=== PATIENT | female | born 1975 | race Caucasian/White ===

== ENCOUNTER 2023-08-20 07:56 | Emergency (ER) | payer OTHER ==
--- OUTSIDE RECORDS SUMMARY | 2023-08-20 08:06 | XMS REPORT | Continuity of Care Document ---
Author Name Unknown Address [address] [facility] [address] [place] [address] [facility] Address [address] [facility] [address] [place] [address] Care Team Providers Care Environmental Safety Specialist Name Role Phone SUN SALCIDO APN Primary Care Physician ZIA Cornelius Attending Clinician Unavailable BLANE TERRELL Attending Clinician Unavail able COSME GUILLEN Attending Clinician Unavailable BLANE FU Attending Clinician Unavailable Blane Fu Attending Clinician UnavailSERGIO Olivo Attending Clinician Sergio Cano Attending Clinician + [phone] KOKI_Jesus Manuel_Francheska Attending Clinician UnavailLisha Ledbetter MD Attending Clinician [phone] LISHA RITTER Attending Clinician UnavailLEOPOLDO Holcomb Attending Clinician Unavailable LEOPOLDO FRASER Attending Clinician Unavailable Doctor Unassigned, Register Attending Clinician U jujuailable ROSELINE MCMAHON Attending Clinician Unavailab Melissa Mckenzie LVN Attending Clinician + [phone] Louie MARKETING OPERATIONS SPECIALISTFreda Simon Attending Clinician [phone] Unknown, Attending Attending Clinician Unavailab FREDA Geiger Attending Clinician Unavailable Treasure Lugo MD Attending Clinician Fab Vergara MD Attending Clinician [phone] Lazaro HENRY, Jacquie West Attending Clinician [phone] LARRY ZAMORA Attending Clinician Unavailable Larry Zamora MD Attending Clinician [phone] HEATHER RANDALL Attending Clinician Unavailable Yomaira RENEE Attending Clinician Unavailable Víctor PAC, Yomaira Fuentes Attending Clinician [phone] Paty JOINER, Erin Jimenez Attending Clinician Unavail able TREASURE LUGO Attending Clinician Alicja vailable SELF, ZACHARIAH S Attending Clinician Unavailable Self PAC, Zachariah S Attending Clinician [phone] ZHENG AVENDANO Attending Clinician Unavailab ASHIA Barkley Attending Clinician Unavailab benji HOOPER_RONEY Attending Clinician Unavailabl HANS Casiano Attending Clinician Unavailabl ZIA Damon Attending Clinician Unavail able Only, Ang Db Test Attending Clinician UnavailNuris Patel MD Attending Clinician [phone] NURIS CRAWFORD Attending Clinician Unavailable SERGIO FISHER Admitting Clinician Unarachel Serrano Admitting Clinician Unavaila ROSELINE Medina Admitting Clinician Unavailab LISHA Schaefer Admitting Clinician UnavailHEATHER Rebolledo Admitting Clinician Unavailable Yomaira RENEE Admitting Clinician Unavailable LEOPOLDO FRASER Admitting Clinician Unavailable Treasure Lugo MD Admitting Clinician TREASURE LUGO Admitting Clinician Alicja ZIA Toribio Admitting Clinician Unavail able COSME GUILLEN Admitting Clinician Unavailable DARRIN Admitting Clinician Unavailabl e Payers Payer Name Policy Type Policy Number Effective Date Expirati on Date Source [employer] [id number] 2018 00:00:00 [employer] (PPO) [id number] 2022 00:00:00 [employer] [id number] 2022 00:00:00 Problems Condition Name Condition Details Condition Category Status Onset Date Resolution Date Last Treatment Date Treating Clinician Comments Source Rupture of rotator cuff of right shoulder Rupture of Rotator Cuff of Right Shoulder Problem Active 08-06 00:00: 00 [facility] Pain of right shoulder joint Pain of Right Shoulder Joint Problem Active 08-06 00:00: 00 [facility] Wound infection Wound infection Disease Active 2022-05 2- 00:00: 00 [facility] Cellulitis of calf Cellulitis of calf Disease Active 2022-05 2 00:00: 00 [facility] Other iron deficiency anemias Other iron deficiency anemias Disease Active 2022-05 0-03 00:00: 00 [facility] Obesity (BMI 30-39.9) Obesity (BMI 30-39.9) Disease Active 11-22 00:00: 00 [facility] Critical limb ischemia of left lower extremity with bypass graft Critical limb ischemia of left lower extremity with bypass graft Disease Active 11-21 00:00: 00 [facility] Critical limb ischemia with history of revascular ization of same extremity Critical limb ischemia with history of revascular ization of same extremity Disease Active 11-21 00:00: 00 [facility] Tobacco abuse Tobacco abuse Disease Active 10-13 00:00: 00 [facility] Essential hypertensi on, benign Essential hypertensi on, benign Disease Active 10-13 00:00: 00 [facility] Problem Condition [facility] Allergies, Adverse Reactions, Alerts Allergy Name Allergy Type Status Severity Reaction(s) Onset Date Inactive Date Treating Clinician Comments Source AMLODIPI NE DRUG INGREDI Active Other-Cmnt 07-05 00:00: 00 [facility] Amlodipi ne Drug Allergy Active Other - See comments 07-05 00:00: 00 [facility] No Known Drug Allergie s DA Active U 6- 00:00: 00 [facility] No Known Drug Allergie s DA Active U 5- 00:00: 00 [facility] No Known Drug Allergie s DA Active U -05 00:00: 00 [facility] No Known Drug Allergie s DA Active U 08-11 00:00: 00 [facility] NO KNOWN ALLERGIE S Drug Class Active [facility] Social History Social Habit Start Date Stop Date Quantity Comments Source History of tobacco use Smokes tobacco daily [facility] Gender identity [facility] Sexual orientation [facility] Tobacco Comment 2023-04-17 00:00:00 2023-04-17 00:00:00 5-6 a day [facility] Tobacco use and exposure 2023-04-17 00:00:00 2023-04-17 00:00:00 User of smokeless tobacco [facility] History of Social function 2022-12-04 00:00:00 2022-12-04 00:00:00 [facility] Exposure to SARS-CoV-2 (event) 2021-11-08 00:00:00 2021-11-18 14:43:00 Not sure [facility] Sex Assigned At 1975 00:00:00 1975 00:00:00 [facility] Smoking Status Start Date Stop Date Source Former Smoker [facility] Smokes tobacco daily 2023-04-17 00:00:00 [facility] Medications Ordered Medication Name Filled Medication Name Start Date Stop Date Current Medication? Ordering Clinician Indication Dosage Frequency Signature (SIG) Comments Components Source ondansetron (ZOFRAN (PF)) injection 4 mg 2024-0 1-06 18:30: 00 05-19 18:27 :00 No 4mg 4 mg, Slow IV Push, ONCE, 1 dose, On 05/19/23 at 1230, [facility] NaCl 0.9% (NS) bolus infusion 1,000 mL 05-19 18:00: 00 05-19 19:06 :00 No 1000mL at 999 mL/hr, 1,000 mL, IV Infusion, ONCE, 1 dose, On 05/19/23 at 1200, [facility] KCL (KLOR-CON M20) tablet 40 mEq 05-19 16:30: 00 05-19 17:04 :00 No 40meq 40 mEq, Oral, ONCE, 1 dose, On 05/19/23 at 1030, [facility] NaCl 0.9% (NS) bolus infusion 1,000 mL 05-19 16:15: 00 05-19 17:55 :00 No 1000mL at 999 mL/hr, 1,000 mL, IV Infusion, ONCE, 1 dose, On 05/19/23 at 1015, [facility] Pantoprazol e 40 mg delayed-rel ease suspension 2022-05 14:30: 18 04-24 00:00 :00 No 40mg Take 40 mg by mouth in the morning. [facility] metoprolol tartrate 25 mg tablet 2022-05 14:30: 04-24 00:00 :00 No 25mg Take 1 tablet by mouth in the morning and 1 tablet in the evening. [facility] metoprolol tartrate 25 mg tablet 2022-05 00:00: 00 Yes 25mg Take 1 tablet by mouth in the morning and 1 tablet in the evening. [facility] Pantoprazol e 40 mg delayed-rel ease suspension 2022-05 00:00: 00 05-10 00:00 :00 No 40mg Take 40 mg by mouth in the morning. [facility] apixaban (ELIQUIS) tablet 5 mg 2022-05 14:00: 00 Yes 5mg 5 mg, Oral, BID, First dose on 04/21/23 at 0800, Until Discontinu ed, Routine
Indicatio ns: DVT/PE [facility] ferrous gluconate tablet 324 mg 2022-05 15:00: 00 Yes 324mg 324 mg, Oral, QMON// SUN, First dose on Sun04/20/23 at 0900, Until Discontinu ed, Routine [facility] acetaminoph en (TYLENOL) tablet 1,000 mg 2022-05 04:00: 00 Yes 1000mg 1,000 mg, Oral, Q8H, First dose on [place] 04/19/23 at 2200, Until Discontinu ed, Routine [facility] Lidocaine (LIDOCARE) 4 % patch 1 Patch 2022-05 22:30: 00 04-22 02:30 :00 No 1{patch } 1 Patch, Topical, Administer over 12 Hours, DAILY, 3 doses, First dose on [place] 04/19/23 at 1630, Last dose on 04/21/23 at 0900, Routine [facility] lactated ringers IV infusion 1,000 mL 2022-05 15:45: 00 04-19 22:19 :10 No 1000mL at 75 mL/hr, 1,000 mL, IV Infusion, CONTINUOUS , Starting on [place] 04/19/23 at 0945, Until [place] 04/19/23 at 1619, Routine, PACU [facility] sennosides (SENOKOT) tablet 8.6 mg 2022-05 15:00: 00 Yes 8.6mg 8.6 mg, Oral, DAILY, First dose on [place] 04/19/23 at 0900, Until Discontinu ed, Routine [facility] docusate (COLACE) capsule 100 mg 2022-05 15:00: 00 Yes 100mg 100 mg, Oral, DAILY, First dose on [place] 04/19/23 at 0900, Until Discontinu ed, Routine [facility] methocarbam oL (ROBAXIN) injection 1,000 mg 2022-05 04:00: 00 04-21 17:26 :28 No 1000mg 1,000 mg, Intravenou s, Q8H, 9 doses, First dose (after last modificati on) on Sun04/18/23 at 2200, Last dose on Sun04/21/23 at 1400, Routine [facility] acetaminoph en ADULT (OFIRMEV) injection 1,000 mg 2022-05 04:00: 00 04-19 22:19 :01 No 1000mg 1,000 mg, IV Infusion, at 400 mL/hr Administer over 15 Minutes, Q8H, 3 doses, First dose on Sun04/18/23 at 2200, Last dose on Sun04/19/23 at 1400, Routine
Indicatio n: Strict NPO and unable to tolerate oral medication s [facility] ketorolac (TORADOL) injection 15 mg 2022-05 00:00: 00 04-21 17:42 :00 No 15mg 15 mg, Slow IV Push, Q8HA1, 9 doses, First dose (after last modificati on) on Sun04/18/23 at 1800, Last dose on Sun04/21/23 at 1000, Routine [facility] naloxone (NARCAN) injection 0.4 mg 2022-05 22:42: 39 Yes .4mg 0.4 mg, Slow IV Push, PRN, Starting on Sun04/18/23 at 1642, Until Discontinu ed, Routine, Sedation/R espiratory Depression [facility] FENTanyl (SUBLIMAZE) 50 mcg/mL Load & Rescue dose 2022-05 22:42: 39 Yes Slow IV Push, Routine [facility] morpHINE (2 mg/mL) injection 2 mg 2022-05 19:43: 59 04-18 19:53 :00 No 2mg 2 mg, Slow IV Push, Q5MIN PRN, 2 doses, Starting on Sun04/18/23 at 1343, Until Sun04/18/23 at 1353, Routine, breakthrou gh pain [facility] citalopram (CELEXA) tablet 10 mg 2022-05 15:00: 00 Yes 10mg 10 mg, Oral, DAILY, First dose on Sun04/18/23 at 0900, Until Discontinu ed, Routine [facility] polyethylen e glycol 3350 powder 17 g 2022-05 15:00: 00 Yes 17g 17 g, Oral, QAM, First dose on Sun04/18/23 at 0900, Until Discontinu ed, Routine [facility] ceFEPIme (MAXIPIME) 1,000 mg in NaCl 0.9% (NS) 100 mL MINI-BAG 2022-05 09:45: 00 04-20 13:19 :11 No 1000mg 1,000 mg, IV Piggyback, Q8H ABX, 42 doses, First dose on Sun04/18/23 at 0700, Last dose on Sun05/01/23 at 1945, Administer over 4 Hours, 100 mL
Reas on for Anti-Infec tive: Documented Infection< br>Documen kristy Infection Site: Skin / Soft Tissue
Duration of Therapy: 7 days [facility] diphenhydrA MINE (BENADRYL) tablet 25 mg 2022-05 04:39: 53 Yes 25mg 25 mg, Oral, Q4HPRN, Starting on Sun04/17/23 at 2239, Until Discontinu ed, Routine, Itching, Mild Rash [facility] vancomycin (VANCOCIN) 1,500 mg in NaCl 0.9% (NS) 500 mL VIAL-MATE IV piggyback 2022-05 02:15: 00 04-18 06:38 :00 No 15mg/kg 1,500 mg (rounded from 1,429.5 mg = 15 mg/kg ?95.3 kg), IV Piggyback, ONCE, 1 dose, On Sun04/17/23 at 2015, Administer over 90 Minutes, 500 mL
Reas on for Anti-Infec tive: Documented Infection& lt;br>Docu mented Infection Site: Skin / Soft Tissue
Duration of Therapy: 7 days [facility] varenicline (CHANTIX) tablet 1 mg 2022-05 02:00: 00 Yes 1mg 1 mg, Oral, BID, First dose on Sun04/17/23 at 2330, Until Discontinu ed, Routine [facility] ceFEPIme (MAXIPIME) 2,000 mg in NaCl 0.9% (NS) 100 mL MINI-BAG 2022-05 02:00: 00 04-18 06:10 :00 No 2000mg 2,000 mg, IV Piggyback, ONCE, 1 dose, On Sun04/17/23 at 1999, Administer over 30 Minutes, 100 mL
Reas on for Anti-Infec tive: Documented Infection< br>Documen kristy Infection Site: Skin / Soft Tissue
Duration of Therapy: 7 days [facility] metoprolol tartrate (LOPRESSOR) tablet 25 mg 2022-05 02:00: 00 04-18 21:13 :16 No 25mg 25 mg, Oral, BID, First dose on Sun04/17/23 at 2000, Until Discontinu ed, Routine [facility] vancomycin (VANCOCIN) 1,500 mg in NaCl 0.9% (NS) 500 mL VIAL-MATE IV piggyback 2022-05 01:15: 00 04-20 15:57 :27 No 15mg/kg 1,500 mg (rounded from 1,429.5 mg = 15 mg/kg ?95.3 kg), IV Piggyback, Q12H ABX, 28 doses, First dose on Sun04/17/23 at 1915, Last dose on Sun05/01/23 at 0715, Administer over 90 Minutes, 500 mL
Reas on for Anti-Infec tive: Documented Infection< br>Documen kristy Infection Site: Skin / Soft Tissue
Duration of Therapy: 7 days [facility] HEPARIN SODIUM (PORCINE) 1,000 UNIT/ML BOLUS ACS ORDER SET 2022-05 01:15: 00 04-18 03:43 :00 No 4000U 4,000 Units, IV Push, ONCE, 1 dose, On Sun04/17/23 at 1915, ADAM [facility] heparin 25,000 Units/250 mL (Premixed Bag) in 0.45 % NS 2022-05 01:08: 22 04-21 13:49 :32 No 0U/h 0-2,750 Units/hr (0-27.5 mL/hr), IV Infusion, TITRATE, Parameters in Admin. Instr., Starting on Sun04/17/23 at 1908
In itiate dosing:&nb sp; & nbsp;&nbsp ; -Patient 83 kg or under: 1,000 Units/hr (Calculate d dose at 12 units/kg/h r) &n bsp; &nbs p; -Patient over 83 k,000 units/hr&n bsp;DO NOT Exceed the MAXIMUM 1,000 units/hr for initiation of heparin drip.&nbsp ; CAU TION - If LMWH given in ER, AVOID bolus and start next dose/drip 12 hrs after ER dosage.&nb sp; M ust program rate using programmab le infusion pump.&nbsp ; Evelia ck with the ordering provider first prior to any administra tion should the patient be on existing/a dditional anticoagul ant therapy. Rang e, Dosing and Testing: &nbs p;FOR [facility], [facility], AND [facility] ONLY &nbs p; - aPTT < 35: & nbsp;Bolus 5000 units, increase rate 300 units/hr&n bsp; - aPTT 35-44:&nbs p; Jason conner 3000 units, increase rate 200 units/hr&n bsp; - aPTT 45-54:&nbs p; In crease rate 100 units/hr&n bsp; - aPTT 55-85:&nbs p; NO CHANGE&nbs p; - aPTT 86-95:&nbs p; De crease rate 100 units/hr&n bsp; - aPTT 96-120:&nb sp; H old 30 minutes, decrease rate 150 units/hr&n bsp; - aPTT > 120: Hold 60 minutes, decrease rate 200 units/hr&n bsp; Check aPTT 6 hours after initiation , then Q6H after every change, aPTT Q12H once therapeuti c levels are reached.&n bsp; &nbs p; __ &n bsp;FOR [facility] ONLY - aPTT < 40: & nbsp;Bolus 5000 units, increase rate 300 units/hr&n bsp; - aPTT 40-49:&nbs p; Jason conner 3000 units, increase rate 200 units/hr&n bsp; - aPTT 50-59:&nbs p; In crease rate 100 units/hr&n bsp; - aPTT 60-85:&nbs p; NO CHANGE&nbs p; - aPTT 86-95:&nbs p; De crease rate 100 units/hr&n bsp; - aPTT 96-120:&nb sp; H old 30 minutes, decrease rate 150 units/hr&n bsp; - aPTT > 120: Hold 60 minutes, decrease rate 200 units/hr&n bsp; Check aPTT 6 hours after initiation , then Q6H after every change, aPTT Q12H once therapeuti c levels are reached.&n bsp;&n bsp; DO NOT ADJUST INITIAL BOLUS OR INITIAL INFUSION RATE.
[facility] (1,000 unit/mL, 10 mL vial) for Rebolusing 2022-05 01:08: 18 04-21 13:49 :32 No 3000U FOR REBOLUSING , Starting on Sun04/17/23 at 1908, Until 04/21/23 at 0749, Routine
Dosing based on aPPT testing parameters (refer to continuous heparin drip order).
[facility] FENTanyl PF (SUBLIMAZE (PF)) injection 25 mcg 2022-05 01:07: 24 04-18 22:07 :44 No 25ug 25 mcg, Slow IV Push, Q2HPRN, Starting on Sun04/17/23 at 1907, Until 04/18/23 at 1607, Routine, Pain (scale 7-10) [facility] ondansetron (ZOFRAN (PF)) injection 4 mg 2022-05 01:07: 08 Yes 4mg 4 mg, Slow IV Push, Q6HPRN, Starting on Sun04/17/23 at 1907, Until Discontinu ed, Routine, Nausea and Vomiting (N/V) [facility] zolpidem (AMBIEN) tablet 5 mg 2022-05 00:52: 50 Yes 5mg 5 mg, Oral, QHSPRN, Starting on Sun04/17/23 at 1852, Until Discontinu ed, Insomnia [facility] Pantoprazol e 40 mg delayed-rel ease suspension 2022-05 19:10: 31 Yes 40mg Take 40 mg by mouth in the morning. [facility] metoprolol tartrate 25 mg tablet 2022-05 19:10: 31 Yes 25mg Take 1 tablet by mouth in the morning and 1 tablet in the evening. [facility] Pantoprazol e 40 mg delayed-rel ease suspension 2022-05 12:07: 27 Yes 40mg Take 40 mg by mouth in the morning. [facility] metoprolol tartrate 25 mg tablet 2022-05 12:07: 27 Yes 25mg Take 1 tablet by mouth in the morning and 1 tablet in the evening. [facility] acetaminoph en (TYLENOL) tablet 325 mg 2022-05 02:00: 00 Yes 325mg 325 mg, Oral, TID, First dose (after last modificati on) on Sun04/06/23 at 2000, Until Discontinu ed, Routine [facility] apixaban (ELIQUIS) tablet 5 mg 2022-05 02:00: 00 Yes 5mg 5 mg, Oral, BID, First dose on Sun04/05/23 at 2000, Until Discontinu ed, Routine
Indicatio ns: Non-Valvul ar Atrial Fibrillati on [facility] magnesium sulfate in water 2 gram/50 mL (4 %) infusion 2 g 2022-05 15:00: 00 04-05 15:37 :00 No 2g 2 g, IV Piggyback, Administer over 60 Minutes, ONCE, 1 dose, On Sun04/05/23 at 0900, Routine [facility] KCL (KLOR-CON M20) tablet 20 mEq 2022-05 15:00: 00 04-05 14:37 :00 No 20meq 20 mEq, Oral, ONCE, 1 dose, On Sun04/05/23 at 0900, Routine [facility] methocarbam oL (ROBAXIN) injection 1,000 mg 2022-05 10:30: 00 04-05 10:24 :00 No 1000mg 1,000 mg, Intravenou s, ONCE, 1 dose, On Sun04/05/23 at 0430, Routine [facility] acetaminoph en (TYLENOL) tablet 500 mg 2022-05 20:00: 00 04-06 20:18 :11 No 500mg 500 mg, Oral, TID, First dose (after last modificati on) on Sun04/04/23 at 1400, Until Discontinu ed, Routine [facility] morpHINE (2 mg/mL) injection 2 mg 2022-05 19:30: 00 04-04 19:34 :00 No 2mg 2 mg, Slow IV Push, ONCE, 1 dose, On Sun04/04/23 at 1345, Routine [facility] HYDROmorpho ne (DILAUDID) injection 0.5 mg 2022-05 17:39: 18 04-05 01:47 :43 No .5mg 0.5 mg, Slow IV Push, Q4HPRN, 2 doses, Starting on Sun04/04/23 at 1139, Until Sun04/04/23 at 1947, Routine, Pain (scale 7-10)
U se approved by (Faculty): [facility] vitamin B-12 (CYANOCOBAL LOUIS) tablet 1,000 mcg 2022-05 15:00: 00 Yes 1000ug 1,000 mcg, Oral, DAILY, First dose on Sun04/04/23 at 0900, Until Discontinu ed, Routine [facility] thiamine (VITAMIN B1) 100 mg in NaCl 0.9% (NS) piggyback 2022-05 15:00: 00 04-04 17:20 :00 No 100mg IV Piggyback, DAILY, 1 dose, First dose on Sun04/04/23 at 0900, 50 mL [facility] magnesium sulfate in water 2 gram/50 mL (4 %) infusion 2 g 2022-05 14:15: 00 04-04 17:53 :00 No 2g 2 g, IV Piggyback, Administer over 60 Minutes, ONCE, 1 dose, On Sun04/04/23 at 0815, Routine [facility] KCL (KLOR-CON M20) tablet 40 mEq 2022-05 13:30: 00 04-04 14:54 :00 No 40meq 40 mEq, Oral, ONCE, 1 dose, On Sun04/04/23 at 0730, ADAM [facility] perflutren protein-A microsphr (OPTISON) injection 3 mL 2022-05 17:30: 00 04-03 17:30 :00 No [id number] 3mL 3 mL, IV Push, ONCE, 1 dose, On Sun04/03/23 at 1130, Routine [facility] NaCl 0.9% (NS) bolus infusion 500 mL 2022-05 15:45: 00 04-03 15:45 :00 No 500mL at 999 mL/hr, 500 mL, IV Piggyback, ONCE, 1 dose, On Sun04/03/23 at 0945, STAT [facility] docusate (COLACE) capsule 100 mg 2022-05 15:00: 00 Yes 100mg 100 mg, Oral, DAILY, First dose on Sun04/03/23 at 0900, Until Discontinu ed, Routine [facility] sennosides- docusate sodium (SENOKOT-S) 8.6-50 mg per tablet 1 tablet 2022-05 15:00: 00 Yes 1{tbl} 1 tablet, Oral, DAILY, First dose on Sun04/03/23 at 0900, Until Discontinu ed, Routine [facility] lisinopriL (PRINIVIL,Z ESTRIL) tablet 40 mg 2022-05 15:00: 00 Yes 40mg 40 mg, Oral, DAILY, First dose on Sun04/03/23 at 0900, Until Discontinu ed [facility] busPIRone (BUSPAR) tablet 15 mg 2022-05 14:00: 00 Yes 15mg 15 mg, Oral, BID, First dose on Sun04/03/23 at 0800, Until Discontinu ed, Routine [facility] metoprolol tartrate (LOPRESSOR) tablet 25 mg 2022-05 14:00: 00 Yes 25mg 25 mg, Oral, BID, First dose on Sun04/03/23 at 0800, Until Discontinu ed, Routine [facility] phosphorus (K PHOS NEUTRAL) tablet 2 tablet 2022-05 12:45: 00 04-03 13:55 :00 No 500mg 2 tablet (500 mg), Oral, ONCE, 1 dose, On Sun04/03/23 at 0645, Routine [facility] magnesium sulfate in water 2 gram/50 mL (4 %) infusion 2 g 2022-05 12:45: 00 04-03 14:42 :00 No 2g 2 g, IV Piggyback, Administer over 60 Minutes, ONCE, 1 dose, On Sun04/03/23 at 0645, ADAM [facility] zolpidem (AMBIEN) tablet 10 mg 2022-05 05:26: 34 Yes 10mg 10 mg, Oral, QHSPRN, Starting on Sun04/02/23 at 2326, Until Discontinu ed, Insomnia [facility] iodixanoL (VISIPAQUE 270-150 mL) injection 2022-05 05:09: 00 04-03 05:38 :10 No PRN, Starting on Sun04/02/23 at 2309, Until Sun04/02/23 at 2338, Routine, Intra-op [facility] esmoloL (BREVIBLOC) injection 2022-05 05:00: 00 04-03 05:39 :53 No Slow IV Push, ONCE INTRA PROCEDURE, Starting on Sun04/02/23 at 2300, Until Discontinu ed, Routine, Intra-op [facility] sugammadex (BRIDION) injection 2022-05 04:53: 00 04-03 05:39 :53 No IV Push, ONCE INTRA PROCEDURE, Starting on Sun04/02/23 at 2253, Until Discontinu ed, Routine, Intra-op [facility] ondansetron (ZOFRAN (PF)) injection 2022-05 04:20: 00 04-03 05:39 :53 No Slow IV Push, ONCE INTRA PROCEDURE, Starting on Sun04/02/23 at 2220, Until Discontinu ed, Routine, Intra-op [facility] albumin (ALBUTEIN 5 %) 5 % injection 2022-05 03:02: 00 04-03 05:39 :53 No IV Infusion, CONTINUOUS PRN, Starting on Sun04/02/23 at 2102, Until Discontinu ed, Intra-op [facility] sodium bicarbonate 8.4 % (1 mEq/mL) injection 2022-05 02:56: 00 04-03 05:39 :53 No Slow IV Push, ONCE INTRA PROCEDURE, Starting on Sun04/02/23 at 2056, Until Discontinu ed, Routine, Intra-op [facility] thrombin (recombinan t) (RECOTHROM) topical solution 2022-05 02:17: 00 04-03 05:38 :10 No PRN, Starting on Sun04/02/23 at 2017, Until Sun04/02/23 at 2338, Routine, Intra-op [facility] calcium chloride 100 mg/mL (10 %) syringe 2022-05 01:13: 00 04-03 05:39 :53 No Intravenou s, ONCE INTRA PROCEDURE, Starting on Sun04/02/23 at 1913, Until Discontinu ed, Routine, Intra-op [facility] electrolyte -A (PLASMALYTE -A) IV infusion 2022-05 00:53: 00 04-03 05:39 :53 No IV Infusion, CONTINUOUS PRN, Starting on Sun04/02/23 at 1853, Until Discontinu ed, Routine, Intra-op [facility] dextrose 50 % in water (D50W) injection 2022-05 00:30: 00 04-03 05:39 :53 No Slow IV Push, CONTINUOUS PRN, Starting on Sun04/02/23 at 1830, Until Discontinu ed, Routine, Intra-op [facility] insulin regular human (HUMULIN R) injection 2022-05 00:30: 00 04-03 05:39 :53 No Subcutaneo us, ONCE INTRA PROCEDURE, Starting on Sun04/02/23 at 1830, Until Discontinu ed, Routine, Intra-op [facility] Pantoprazol e 40 mg delayed-rel ease suspension 2022-05 23:27: 11 Yes 40mg Take 40 mg by mouth in the morning. [facility] metoprolol tartrate 25 mg tablet 2022-05 23:27: 11 Yes 25mg Take 1 tablet by mouth in the morning and 1 tablet in the evening. [facility] HYDROmorphO ne (DILAUDID) injection 2022-05 22:50: 00 04-03 05:39 :53 No Slow IV Push, ONCE INTRA PROCEDURE, Starting on Sun04/02/23 at 1650, Until Discontinu ed, Routine, Intra-op [facility] heparin (1,000 unit/mL, 10 mL vial) 2022-05 21:40: 00 04-03 05:39 :53 No ONCE INTRA PROCEDURE, Starting on Sun04/02/23 at 1540, Until Discontinu ed, Routine, Intra-op [facility] PHENYLephri ne 1000 mcg/10 mL in 0.9% NaCl syringe 2022-05 21:21: 00 04-03 05:39 :53 No Slow IV Push, ONCE INTRA PROCEDURE, Starting on Sun04/02/23 at 1521, Until Discontinu ed, Routine, Intra-op [facility] ceFAZolin (ANCEF) injection 2022-05 21:17: 00 04-03 05:39 :53 No Slow IV Push, ONCE INTRA PROCEDURE, Starting on Sun04/02/23 at 1517, Until Discontinu ed, ADAM, Intra-op [facility] dexamethaso ne (DECADRON PHOSPHATE) injection 2022-05 21:15: 00 04-03 05:39 :53 No IV Push, ONCE INTRA PROCEDURE, Starting on Sun04/02/23 at 1515, Until Discontinu ed, Routine, Intra-op [facility] lactated ringers IV infusion 2022-05 20:52: 00 04-03 05:39 :53 No IV Infusion, CONTINUOUS PRN, Starting on Sun04/02/23 at 1452, Until Discontinu ed, Routine, Intra-op [facility] propofoL IV infusion 2022-05 20:43: 00 04-03 05:39 :53 No Slow IV Push, ONCE INTRA PROCEDURE, Starting on Sun04/02/23 at 1443, Until Discontinu ed, Routine, Intra-op [facility] rocuronium (ZEMURON) injection 2022-05 20:43: 00 04-03 05:39 :53 No IV Push, ONCE INTRA PROCEDURE, Starting on Sun04/02/23 at 1443, Until Discontinu ed, Routine, Intra-op [facility] lidocaine 1% (XYLOCAINE) 100 mg/10 mL (1 %) injection 2022-05 20:41: 00 04-03 05:39 :53 No Slow IV Push, ONCE INTRA PROCEDURE, Starting on Sun04/02/23 at 1441, Until Discontinu ed, Routine, Intra-op [facility] FENTanyl PF (SUBLIMAZE (PF)) injection 2022-05 20:41: 00 04-03 05:39 :53 No Slow IV Push, ONCE INTRA PROCEDURE, Starting on Sun04/02/23 at 1441, Until Discontinu ed, Routine, Intra-op [facility] midazolam (VERSED) injection 2022-05 20:40: 00 04-03 05:39 :53 No IV Push, ONCE INTRA PROCEDURE, Starting on Sun04/02/23 at 1440, Until Discontinu ed, Routine, Intra-op [facility] lactated ringers IV infusion 2022-05 20:34: 00 04-03 05:39 :53 No IV Infusion, CONTINUOUS PRN, Starting on Sun04/02/23 at 1434, Until Discontinu ed, Routine, Intra-op [facility] heparin 10,000 units in NS 1000 mL for vascular 2022-05 20:17: 00 04-03 05:38 :10 No PRN, Starting on Sun04/02/23 at 1417, Intra-op [facility] acetaminoph en ADULT (OFIRMEV) injection 1,000 mg 2022-05 18:15: 00 04-02 19:10 :00 No 1000mg 1,000 mg, IV Infusion, at 400 mL/hr Administer over 15 Minutes, ONCE, 1 dose, On Sun04/02/23 at 1215, Routine
Indicatio n: Strict NPO and unable to tolerate oral medication s [facility] morpHINE (2 mg/mL) injection 2 mg 2022-05 17:17: 58 Yes 2mg 2 mg, Slow IV Push, Q2HPRN, Starting on Sun04/02/23 at 1117, Until Discontinu ed, Routine, Pain (scale 7-10), [facility] unrelieved by scheduled [facility] Units/250 mL (Premixed Bag) in 0.45 % NS 2022-05 16:10: 03 04-05 18:08 :48 No [id number] 0U/h 0-3,050 Units/hr (0-30.5 mL/hr), IV Infusion, TITRATE, Parameters in Admin. Instr., Starting on Sun04/02/23 at 1010
In itiate dosing:&nb sp; & nbsp;&nbsp ; -Patient 73 kg or under: 1,300 Units/hr (Calculate d dose at 18 units/kg/h r) &n bsp; &nbs p; -Patient over 73 k,300 units/hr&n bsp;DO NOT Exceed the MAXIMUM 1,300 units/hr for initiation of heparin drip.&nbsp ; CAU TION - If LMWH given in ER, AVOID bolus and start next dose/drip 12 hrs after ER dosage.&nb sp; M ust program rate using programmab le infusion pump.&nbsp ; Evelia ck with the ordering provider first prior to any administra tion should the patient be on existing/a dditional anticoagul ant therapy. Rang e, Dosing and Testing: &nbs p;DO NOT ADJUST INITIAL BOLUS OR INITIAL INFUSION RATE.&nbsp ; _ &nb sp;FOR [facility], [facility], AND [facility] ONLY &nbs p; - aPTT < 35: & nbsp;Bolus 5000 units, increase rate 300 units/hr&n bsp; - aPTT 35-44:&nbs p; Jason conner 3000 units, increase rate 200 units/hr&n bsp; - aPTT 45-54:&nbs p; In crease rate 100 units/hr&n bsp; - aPTT 55-85:&nbs p; NO CHANGE&nbs p; - aPTT 86-95:&nbs p; De crease rate 100 units/hr&n bsp; - aPTT 96-120:&nb sp; H old 30 minutes, decrease rate 150 units/hr&n bsp; - aPTT > 120: Hold 60 minutes, decrease rate 200 units/hr&n bsp; Check aPTT 6 hours after initiation , then Q6H after every change, aPTT Q12H once therapeuti c levels are reached.&n bsp; &nbs p; __ &n bsp;FOR [facility] ONLY - aPTT < 40: & nbsp;Bolus 5000 units, increase rate 300 units/hr&n bsp; - aPTT 40-49:&nbs p; Jason conner 3000 units, increase rate 200 units/hr&n bsp; - aPTT 50-59:&nbs p;&nbs p;Increase rate 100 units/hr&n bsp; - aPTT 60-85:&nbs p; NO CHANGE&nbs p; - aPTT 86-95:&nbs p; De crease rate 100 units/hr&n bsp; - aPTT 96-120:&nb sp; H old 30 minutes, decrease rate 150 units/hr&n bsp; - aPTT > 120: Hold 60 minutes, decrease rate 200 units/hr&n bsp; Check aPTT 6 hours after initiation , then Q6H after every change, aPTT Q12H once therapeuti c levels are reached.<b r> [facility] heparin (1,000 unit/mL, 10 mL vial) 2022-05 16:09: 58 Yes [id number] 3000U FOR REBOLUSING , Starting on Sun04/02/23 at 1009, Until Discontinu ed, Routine
Dosing based on aPTT testing parameters (refer to continuous heparin drip order)
[facility] iopamidol (ISOVUE 370-500 mL) injection 112 mL 2022-05 15:00: 00 04-02 15:00 :00 No [id number] 112mL 112 mL, Intravenou s, ONCE, 1 dose, On Sun04/02/23 at 0900, Routine [facility] NaCl 0.9% (NS) IV infusion 1,000 mL 2022-05 13:30: 00 04-02 14:26 :00 No 1000mL at 999 mL/hr, Intravenou s, ONCE, 1 dose, On Sun04/02/23 at 0730, Routine [facility] heparin 1000 unit/mL injection Soln 5,000 Units 2022-05 13:00: 00 04-02 13:02 :00 No 5000U 5,000 Units, IV Push, ONCE, 1 dose, On Sun04/02/23 at 0700, Routine [facility] heparin 25,000 Units/250 mL (Premixed Bag) in 0.45 % NS 2022-05 12:52: 59 Yes 0U/h 0-3,050 Units/hr (0-30.5 mL/hr), IV Infusion, TITRATE, Parameters in Admin. Instr., Starting on Sun04/02/23 at 0652
In itiate dosing:&nb sp; & nbsp;&nbsp ; -Patient 73 kg or under: 1,300 Units/hr (Calculate d dose at 18 units/kg/h r) &n bsp; &nbs p; -Patient over 73 k,300 units/hr&n bsp;DO NOT Exceed the MAXIMUM 1,300 units/hr for initiation of heparin drip.&nbsp ; CAU TION - If LMWH given in ER, AVOID bolus and start next dose/drip 12 hrs after ER dosage.&nb sp; M ust program rate using programmab le infusion pump.&nbsp ; Evelia ck with the ordering provider first prior to any administra tion should the patient be on existing/a dditional anticoagul ant therapy. Rang e, Dosing and Testing: &nbs p;DO NOT ADJUST INITIAL BOLUS OR INITIAL INFUSION RATE.&nbsp ; _ &nb sp;FOR [facility], [facility], AND [facility] ONLY &nbs p; - aPTT < 35: & nbsp;Bolus 5000 units, increase rate 300 units/hr&n bsp; - aPTT 35-44:&nbs p; Jason conner 3000 units, increase rate 200 units/hr&n bsp; - aPTT 45-54:&nbs p; In crease rate 100 units/hr&n bsp; - aPTT 55-85:&nbs p; NO CHANGE&nbs p; - aPTT 86-95:&nbs p; De crease rate 100 units/hr&n bsp; - aPTT 96-120:&nb sp; H old 30 minutes, decrease rate 150 units/hr&n bsp; - aPTT > 120: Hold 60 minutes, decrease rate 200 units/hr&n bsp; Check aPTT 6 hours after initiation , then Q6H after every change, aPTT Q12H once therapeuti c levels are reached.&n bsp; &nbs p; __ &n bsp;FOR [facility] ONLY - aPTT < 40: & nbsp;Bolus 5000 units, increase rate 300 units/hr&n bsp; - aPTT 40-49:&nbs p; Jason conner 3000 units, increase rate 200 units/hr&n bsp; - aPTT 50-59:&nbs p;&nbs p;Increase rate 100 units/hr&n bsp; - aPTT 60-85:&nbs p; NO CHANGE&nbs p; - aPTT 86-95:&nbs p; De crease rate 100 units/hr&n bsp; - aPTT 96-120:&nb sp; H old 30 minutes, decrease rate 150 units/hr&n bsp; - aPTT > 120: Hold 60 minutes, decrease rate 200 units/hr&n bsp; Check aPTT 6 hours after initiation , then Q6H after every change, aPTT Q12H once therapeuti c levels are reached.<b r> [facility] heparin (1,000 unit/mL, 10 mL vial) 2022-05 12:52: 59 Yes 3000U FOR REBOLUSING , Starting on Sun04/02/23 at 0652, Until Discontinu ed, Routine
Dosing based on aPTT testing parameters (refer to continuous heparin drip order)
[facility] sodium chloride (NS) injection 5 mL 2022-05 0 16:05: 51 Yes 5mL 5 mL, Intravenou s, PRN, Starting on Sun02/13/23 at 1105, Until Discontinu ed, Routine, IV line flushing [facility] NaCl 0.9% (NS) bolus infusion 250 mL 02-10 22:15: 00 02-10 21:50 :00 No 250mL at 999 mL/hr, 250 mL, IV Piggyback, ONCE, 1 dose, On Sun02/10/23 at 1715, STAT [facility] KCL (KLOR-CON M20) tablet 40 mEq 02-10 19:45: 00 02-10 19:04 :00 No 40meq 40 mEq, Oral, ONCE, 1 dose, On Sun02/10/23 at 1445, Routine [facility] potassium chloride in water 10 mEq/100 mL RTU 10 mEq 02-10 19:30: 00 02-10 20:23 :00 No 10meq 10 mEq, IV Piggyback, ONCE, 1 dose, On Sun02/10/23 at 1430, Administer over 60 Minutes, 100 mL [facility] fludeoxyglu cose F-18 (FDG) injection 10 millicurie 01-02 18:40: 00 01-02 18:40 :00 No [id number] 10mCi 10 millicurie , Intravenou s, ONCE, 1 dose, On Sun01/02/23 at 1400, Routine [facility] apixaban 5 mg tablet 12-24 00:00: 00 12-24 04:59 :00 No 5mg Take 1 tablet by mouth in the morning and 1 tablet in the evening. Indication s: Arterial thrombosis [facility] Pantoprazol e 40 mg delayed-rel ease suspension 12-04 16:18: 26 Yes 40mg Take 40 mg by mouth in the morning. [facility] metoprolol tartrate 25 mg tablet 12-04 16:18: 26 Yes 25mg Take 1 tablet by mouth in the morning and 1 tablet in the evening. [facility] aspirin 81 mg chewable tablet 11-23 14:45: 59 11-23 00:00 :00 No 81mg Take 1 tablet by mouth in the morning. [facility] apixaban (ELIQUIS) tablet 10 mg 11-23 13:00: 00 2023- 07-20 12:59 :00 No 10mg [Order 1 Start] Name: apixaban (ELIQUIS) tablet 10 mg Signed Summary: 10 mg, Oral, BID, 14 doses, First dose on Sun11/23/22 at 0800, Last dose on Sun11/29/22 at 2000, Routine
Indicatio ns: DVT/PE [Order 1 End] [Order 2 Start] Name: apixaban (ELIQUIS) tablet 5 mg Signed Summary: 5 mg, Oral, BID, First dose on Sun11/30/22 at 0800, Until Discontinu ed, Routine
Indicatio ns: DVT/PE [Order 2 End] [facility] PENICILLIN V POTASSIUM ORAL 11-23 09:19: 11-23 00:00 :00 No Take by mouth. [facility] aspirin 81 mg chewable tablet 11-23 09:19: 11-23 00:00 :00 No 81mg Take 1 tablet by mouth in the morning. [facility] apixaban 5 mg tablet 11-23 00:00: 00 04-24 00:00 :00 No Take 10 mg (two tablets) by mouth twice daily for a total of 7 days, then take 5 mg (one tablet) twice daily there after Indication s: Arterial thrombosis [facility] lidocaine 1% (PF) (XYLOCAINE) injection 11-22 19:46: 00 Yes PRN, Starting on Sun11/22/22 at 1446, Until Discontinu ed, Routine, Intra-op [facility] iopamidol (ISOVUE 370-500 mL) injection 11-22 19:46: 00 Yes PRN, Starting on Sun11/22/22 at 1446, Until Discontinu ed, Routine, Intra-op [facility] LORazepam (ATIVAN) injection 0.5 mg 11-22 19:46: 00 11-22 19:47 :00 No .5mg 0.5 mg, Slow IV Push, ONCE, 1 dose, On Sun11/22/22 at 1500, Routine [facility] heparin 10,000 units in NS 1000 mL for vascular 11-22 19:45: 00 Yes PRN, Starting on Sun11/22/22 at 1445, Intra-op [facility] FENTanyl PF (SUBLIMAZE (PF)) injection 25 mcg 11-22 19:35: 18 11-22 23:48 :50 No 25ug 25 mcg, Slow IV Push, Q5MIN PRN, 4 doses, Starting on Sun11/22/22 at 1435, Until Sun11/22/22 at 1848, Routine, Pain (scale 4-6), PACU [facility] heparin 25,000 Units/250 mL (Premixed Bag) in 0.45 % NS 11-22 19:30: 31 11-23 12:04 :40 No 0U/h 0-3,050 Units/hr (0-30.5 mL/hr), IV Infusion, TITRATE, Parameters in Admin. Instr., Starting on Sun11/22/22 at 1430
In itiate dosing:&nb sp; & nbsp;&nbsp ; -Patient 73 kg or under: 1,300 Units/hr (Calculate d dose at 18 units/kg/h r) &n bsp; &nbs p; -Patient over 73 k,300 units/hr&n bsp;DO NOT Exceed the MAXIMUM 1,300 units/hr for initiation of heparin drip.&nbsp ; CAU TION - If LMWH given in ER, AVOID bolus and start next dose/drip 12 hrs after ER dosage.&nb sp; M ust program rate using programmab le infusion pump.&nbsp ; Evelia ck with the ordering provider first prior to any administra tion should the patient be on existing/a dditional anticoagul ant therapy. Rang e, Dosing and Testing: &nbs p;DO NOT ADJUST INITIAL BOLUS OR INITIAL INFUSION RATE.&nbsp ; _ &nb sp;FOR [facility], [facility], AND [facility] ONLY &nbs p; - aPTT < 35: & nbsp;Bolus 5000 units, increase rate 300 units/hr&n bsp; - aPTT 35-44:&nbs p; Jason conner 3000 units, increase rate 200 units/hr&n bsp; - aPTT 45-54:&nbs p; In crease rate 100 units/hr&n bsp; - aPTT 55-85:&nbs p; NO CHANGE&nbs p; - aPTT 86-95:&nbs p; De crease rate 100 units/hr&n bsp; - aPTT 96-120:&nb sp; H old 30 minutes, decrease rate 150 units/hr&n bsp; - aPTT > 120: Hold 60 minutes, decrease rate 200 units/hr&n bsp; Check aPTT 6 hours after initiation , then Q6H after every change, aPTT Q12H once therapeuti c levels are reached.&n bsp; &nbs p; __ &n bsp;FOR [facility] ONLY - aPTT < 40: & nbsp;Bolus 5000 units, increase rate 300 units/hr&n bsp; - aPTT 40-49:&nbs p; Jason conner 3000 units, increase rate 200 units/hr&n bsp; - aPTT 50-59:&nbs p;&nbs p;Increase rate 100 units/hr&n bsp; - aPTT 60-85:&nbs p; NO CHANGE&nbs p; - aPTT 86-95:&nbs p; De crease rate 100 units/hr&n bsp; - aPTT 96-120:&nb sp; H old 30 minutes, decrease rate 150 units/hr&n bsp; - aPTT > 120: Hold 60 minutes, decrease rate 200 units/hr&n bsp; Check aPTT 6 hours after initiation , then Q6H after every change, aPTT Q12H once therapeuti c levels are reached.<b r> [facility] KCL (KLOR-CON M10) tablet 30 mEq 11-22 16:30: 00 11-22 16:00 :00 No 30meq 30 mEq, Oral, ONCE, 1 dose, On Sun11/22/22 at 1130, Routine [facility] hydralAZINE (APRESOLINE ) injection 5 mg 11-22 15:49: 40 Yes 5mg 5 mg, Slow IV Push, Q4HPRN, Starting on Sun11/22/22 at 1049, Until Discontinu ed, Routine, DBP=>100; SBP=>160 [facility] polyethylen e glycol 3350 powder 17 g 11-22 14:00: 00 Yes 17g 17 g, Oral, DAILY, First dose on Sun11/22/22 at 0900, Until Discontinu ed, Routine [facility] aspirin chewable tablet 81 mg 11-22 14:00: 00 11-23 14:13 :07 No 81mg 81 mg, Oral, DAILY, First dose on Sun11/22/22 at 0900, Until Discontinu ed, Routine [facility] morpHINE (2 mg/mL) injection 2 mg 11-22 11:06: 34 Yes 2mg 2 mg, Slow IV Push, Q4HPRN, Starting on Sun11/22/22 at 0606, Until Discontinu ed, Routine, Pain (scale 7-10) [facility] acetaminoph en (TYLENOL) tablet 650 mg 11-22 11:06: 25 Yes 650mg 650 mg, Oral, Q6HPRN, Starting on Sun11/22/22 at 0606, Until Discontinu ed, Routine, Pain (scale 1-3) [facility] magnesium sulfate in D5W 1 gram/100 mL RTU IV Piggyback 1 g 11-22 09:18: 00 11-22 12:06 :00 No 1g 1 g, IV Piggyback, ONCE, 1 dose, On Sun11/22/22 at 0430, Administer over 60 Minutes, 100 mL [facility] KCL (KLOR-CON M20) tablet 20 mEq 11-22 09:18: 00 11-22 11:06 :00 No 20meq 20 mEq, Oral, ONCE, 1 dose, On Sun11/22/22 at 0430, STAT [facility] LORazepam (ATIVAN) injection 1 mg 11-22 09:11: 00 11-22 09:16 :00 No 1mg 1 mg, Slow IV Push, ONCE, 1 dose, On Sun11/22/22 at 0415, STAT [facility] HYDROmorpho ne (DILAUDID) injection 0.2 mg 11-22 08:19: 34 11-22 10:31 :24 No .2mg 0.2 mg, Slow IV Push, Q5MIN PRN, 10 doses, Starting on Sun11/22/22 at 0319, Until Sun11/22/22 at 0531, Routine, Pain (scale 7-10), PACU
Us e approved by (Faculty): PACU USE -ANESTHESI A SERVICE-HY DROMORPHON E INJECTIONS [facility] heparin 25,000 Units/250 mL (Premixed Bag) in 0.45 % NS 11-22 07:58: 09 11-22 14:16 :57 No 500U/h 500 Units/hr (5 mL/hr), IV Infusion, TITRATE, Parameters in Admin. Instr., Starting on Sun11/22/22 at 0258
50 0 units/hr non-titrat able
[facility] ondansetron (ZOFRAN (PF)) injection 4 mg 11-22 02:08: 00 Yes 4mg 4 mg, Slow IV Push, Q6HPRN, Starting on Sun11/21/22 at 2108, Until Discontinu ed, Routine, Nausea and Vomiting (N/V) [facility] heparin 1000 unit/mL injection Soln 5,000 Units 11-21 23:15: 00 11-21 23:23 :00 No 5000U 5,000 Units, IV Push, ONCE, 1 dose, On Sun11/21/22 at 1815, Routine [facility] ondansetron (ZOFRAN (PF)) injection 4 mg 11-21 23:15: 00 11-21 23:22 :00 No 4mg 4 mg, Slow IV Push, ONCE, 1 dose, On Sun11/21/22 at 1815, ADAM [facility] morpHINE (4 mg/mL) injection 4 mg 11-21 23:15: 00 11-21 23:22 :00 No 4mg 4 mg, Slow IV Push, ONCE, 1 dose, On Sun11/21/22 at 1815, STAT [facility] heparin 25,000 Units/250 mL (Premixed Bag) in 0.45 % NS 11-21 23:01: 08 Yes 0U/h 0-3,050 Units/hr (0-30.5 mL/hr), IV Infusion, TITRATE, Starting on Sun11/21/22 at 1801, Until Discontinu ed, Routine [facility] iopamidol (ISOVUE 370-500 mL) injection 110 mL 11-21 20:30: 00 11-21 20:30 :00 No [id number] 110mL 110 mL, Intravenou s, ONCE, 1 dose, On Sun11/21/22 at 1530, Routine [facility] PENICILLIN V POTASSIUM ORAL 10-13 20:46: 01 Yes Take by mouth. [facility] acetaminoph en-codeine 300-30 mg tablet 10-13 00:00: 00 11-23 00:00 :00 No [id number] 1/2 - 1 tab Every 4hrs as needed for pain or cough requiring narcotic [facility] amlodipine 10 mg tablet TAKE 1 TABLET BY MOUTH EVERY DAY amlodipine 10 mg tablet TAKE 1 TABLET BY MOUTH EVERY DAY No amlodipine 10 mg tablet TAKE 1 TABLET BY MOUTH EVERY DAY [facility] aspirin 81 mg tablet,rosanna yed release TAKE 1 TABLET BY MOUTH DAILY aspirin 81 mg tablet,rosanna yed release TAKE 1 TABLET BY MOUTH DAILY No aspirin 81 mg tablet,del ayed release TAKE 1 TABLET BY MOUTH DAILY [facility] atorvastati n 20 mg tablet TAKE 2 TABLETS BY MOUTH AT BEDTIME atorvastati n 20 mg tablet TAKE 2 TABLETS BY MOUTH AT BEDTIME No atorvastat in 20 mg tablet TAKE 2 TABLETS BY MOUTH AT BEDTIME [facility] buspirone 10 mg tablet TAKE 1 TABLET BY MOUTH TWICE DAILY buspirone 10 mg tablet TAKE 1 TABLET BY MOUTH TWICE DAILY No buspirone 10 mg tablet TAKE 1 TABLET BY MOUTH TWICE DAILY [facility] buspirone 15 mg tablet TAKE ONE (1) TABLET(S) BY MOUTH TWICE A DAY. buspirone 15 mg tablet TAKE ONE (1) TABLET(S) BY MOUTH TWICE A DAY. No buspirone 15 mg tablet TAKE ONE (1) TABLET(S) BY MOUTH TWICE A DAY. [facility] cephalexin 500 mg capsule TAKE 1 CAPSULE BY MOUTH FOUR TIMES DAILY FOR 10 DAYS cephalexin 500 mg capsule TAKE 1 CAPSULE BY MOUTH FOUR TIMES DAILY FOR 10 DAYS No cephalexin 500 mg capsule TAKE 1 CAPSULE BY MOUTH FOUR TIMES DAILY FOR 10 DAYS [facility] citalopram 20 mg tablet TAKE ONE (1) TABLET(S) BY MOUTH ONCE A DAY. citalopram 20 mg tablet TAKE ONE (1) TABLET(S) BY MOUTH ONCE A DAY. No citalopram 20 mg tablet TAKE ONE (1) TABLET(S) BY MOUTH ONCE A DAY. [facility] clonidine HCl 0.1 mg tablet TAKE ONE (1) TABLET(S) BY MOUTH THREE TIMES A DAY NEEDED. clonidine HCl 0.1 mg tablet TAKE ONE (1) TABLET(S) BY MOUTH THREE TIMES A DAY NEEDED. No clonidine HCl 0.1 mg tablet TAKE ONE (1) TABLET(S) BY MOUTH THREE TIMES A DAY NEEDED. [facility] clopidogrel 75 mg tablet TAKE 1 TABLET BY MOUTH IN THE MORNING clopidogrel 75 mg tablet TAKE 1 TABLET BY MOUTH IN THE MORNING No clopidogre l 75 mg tablet TAKE 1 TABLET BY MOUTH IN THE MORNING [facility] cyanocobala min (vit B-12) 1,000 mcg/mL injection solution INJECT 1 ML DIRECTED EVERY 2 WEEKS cyanocobala min (vit B-12) 1,000 mcg/mL injection solution INJECT 1 ML DIRECTED EVERY 2 WEEKS No cyanocobal louis (vit B-12) 1,000 mcg/mL injection solution INJECT 1 ML DIRECTED EVERY 2 WEEKS [facility] Eliquis 5 mg tablet TAKE ONE TABLET BY MOUTH IN THE MORNING AND ONE TABLET IN THE EVENING Eliquis 5 mg tablet TAKE ONE TABLET BY MOUTH IN THE MORNING AND ONE TABLET IN THE EVENING No Eliquis 5 mg tablet TAKE ONE TABLET BY MOUTH IN THE MORNING AND ONE TABLET IN THE EVENING [facility] folic acid 1 mg tablet TAKE 1 TABLET BY MOUTH EVERY DAY folic acid 1 mg tablet TAKE 1 TABLET BY MOUTH EVERY DAY No folic acid 1 mg tablet TAKE 1 TABLET BY MOUTH EVERY DAY [facility] folic acid 800 mcg tablet TAKE ONE (1) TABLET(S) BY MOUTH ONCE A DAY. folic acid 800 mcg tablet TAKE ONE (1) TABLET(S) BY MOUTH ONCE A DAY. No folic acid 800 mcg tablet TAKE ONE (1) TABLET(S) BY MOUTH ONCE A DAY. [facility] gabapentin 300 mg capsule TAKE 1 CAPSULE BY MOUTH THREE TIMES DAILY gabapentin 300 mg capsule TAKE 1 CAPSULE BY MOUTH THREE TIMES DAILY No gabapentin 300 mg capsule TAKE 1 CAPSULE BY MOUTH THREE TIMES DAILY [facility] hydrocodone 10 mg-acetamin ophen 325 mg tablet TAKE 1 TABLET BY MOUTH EVERY 4 HOURS NEEDED ACUTE PAIN hydrocodone 10 mg-acetamin ophen 325 mg tablet TAKE 1 TABLET BY MOUTH EVERY 4 HOURS NEEDED ACUTE PAIN No hydrocodon e 10 mg-acetami nophen 325 mg tablet TAKE 1 TABLET BY MOUTH EVERY 4 HOURS NEEDED ACUTE PAIN [facility] hydrocodone 5 mg-acetamin ophen 325 mg tablet TAKE 1 TABLET BY MOUTH EVERY 6 HOURS FOR UP TO 7 DAYS NEEDED FOR SEVERE PAIN OR ACUTE POST OPERATIVE PAIN hydrocodone 5 mg-acetamin ophen 325 mg tablet TAKE 1 TABLET BY MOUTH EVERY 6 HOURS FOR UP TO 7 DAYS NEEDED FOR SEVERE PAIN OR ACUTE POST OPERATIVE PAIN No hydrocodon e 5 mg-acetami nophen 325 mg tablet TAKE 1 TABLET BY MOUTH EVERY 6 HOURS FOR UP TO 7 DAYS NEEDED FOR SEVERE PAIN OR ACUTE POST OPERATIVE PAIN [facility] lisinopril 40 mg tablet TAKE ONE (1) TABLET(S) BY MOUTH ONCE A DAY. lisinopril 40 mg tablet TAKE ONE (1) TABLET(S) BY MOUTH ONCE A DAY. No lisinopril 40 mg tablet TAKE ONE (1) TABLET(S) BY MOUTH ONCE A DAY. [facility] lorazepam 1 mg tablet lorazepam 1 mg tablet No lorazepam 1 mg tablet [facility] methocarbam ol 500 mg tablet TAKE 1 TABLET BY MOUTH FOUR TIMES DAILY FOR 7 DAYS methocarbam ol 500 mg tablet TAKE 1 TABLET BY MOUTH FOUR TIMES DAILY FOR 7 DAYS No methocarba mol 500 mg tablet TAKE 1 TABLET BY MOUTH FOUR TIMES DAILY FOR 7 DAYS [facility] mirtazapine 15 mg tablet mirtazapine 15 mg tablet No mirtazapin e 15 mg tablet [facility] Mobic 15 mg tablet Take 1 tablet every day by oral route with meal(s) for 21 days. Take 2 tab on first day, then 1 tab daily Mobic 15 mg tablet Take 1 tablet every day by oral route with meal(s) for 21 days. Take 2 tab on first day, then 1 tab daily No 1 Q1D Mobic 15 mg tablet Take 1 tablet every day by oral route with meal(s) for 21 days. Take 2 tab on first day, then 1 tab daily [facility] ondansetron 4 mg disintegrat ing tablet DISSOLVE 1 TABLET ON THE TONGUE EVERY 8 HOURS NEEDED FOR NAUSEA OR VOMITING ondansetron 4 mg disintegrat ing tablet DISSOLVE 1 TABLET ON THE TONGUE EVERY 8 HOURS NEEDED FOR NAUSEA OR VOMITING No ondansetro n 4 mg disintegra ting tablet DISSOLVE 1 TABLET ON THE TONGUE EVERY 8 HOURS NEEDED FOR NAUSEA OR VOMITING [facility] oseltamivir 75 mg capsule oseltamivir 75 mg capsule No oseltamivi r 75 mg capsule [facility] oxycodone 5 mg tablet TAKE 1 TABLET BY MOUTH EVERY 6 HOURS FOR UP TO 7 DAYS NEEDED FOR SEVERE PAIN OR ACUTE PAIN oxycodone 5 mg tablet TAKE 1 TABLET BY MOUTH EVERY 6 HOURS FOR UP TO 7 DAYS NEEDED FOR SEVERE PAIN OR ACUTE PAIN No oxycodone 5 mg tablet TAKE 1 TABLET BY MOUTH EVERY 6 HOURS FOR UP TO 7 DAYS NEEDED FOR SEVERE PAIN OR ACUTE PAIN [facility] pantoprazol e 40 mg tablet,rosanna yed release TAKE ONE (1) TABLET(S) BY MOUTH ONCE A DAY. pantoprazol e 40 mg tablet,rosanna yed release TAKE ONE (1) TABLET(S) BY MOUTH ONCE A DAY. No pantoprazo le 40 mg tablet,del ayed release TAKE ONE (1) TABLET(S) BY MOUTH ONCE A DAY. [facility] prednisone 10 mg tablet Take 1 tablet 3 times a day by oral route with meal(s) for 10 days. prednisone 10 mg tablet Take 1 tablet 3 times a day by oral route with meal(s) for 10 days. No 1 TID prednisone 10 mg tablet Take 1 tablet 3 times a day by oral route with meal(s) for 10 days. [facility] quetiapine 100 mg tablet TAKE ONE (1) AND 1/2 TABLET BY MOUTH ONCE A DAY. quetiapine 100 mg tablet TAKE ONE (1) AND 1/2 TABLET BY MOUTH ONCE A DAY. No quetiapine 100 mg tablet TAKE ONE (1) AND 1/2 TABLET BY MOUTH ONCE A DAY. [facility] Santyl 250 unit/gram topical ointment APPLY ONCE DAILY TO WOUND DIRECTED Santyl 250 unit/gram topical ointment APPLY ONCE DAILY TO WOUND DIRECTED No Santyl 250 unit/gram topical ointment APPLY ONCE DAILY TO WOUND DIRECTED [facility] sertraline 50 mg tablet TAKE 1 TABLET BY MOUTH DAILY sertraline 50 mg tablet TAKE 1 TABLET BY MOUTH DAILY No sertraline 50 mg tablet TAKE 1 TABLET BY MOUTH DAILY [facility] spironolact one 25 mg tablet TAKE ONE (1) TABLET(S) BY MOUTH ONCE A DAY. spironolact one 25 mg tablet TAKE ONE (1) TABLET(S) BY MOUTH ONCE A DAY. No spironolac tone 25 mg tablet TAKE ONE (1) TABLET(S) BY MOUTH ONCE A DAY. [facility] spironolact one 50 mg tablet TAKE ONE-HALF (1/2) TABLET(S) BY MOUTH ONCE A DAY. spironolact one 50 mg tablet TAKE ONE-HALF (1/2) TABLET(S) BY MOUTH ONCE A DAY. No spironolac tone 50 mg tablet TAKE ONE-HALF (1/2) TABLET(S) BY MOUTH ONCE A DAY. [facility] sulfamethox azole 800 mg-trimetho prim 160 mg tablet TAKE 1 TABLET BY MOUTH EVERY MORNING AND TAKE 1 TABLET BY MOUTH EVERY EVENING DO ALL THIS FOR 6 DAYS sulfamethox azole 800 mg-trimetho prim 160 mg tablet TAKE 1 TABLET BY MOUTH EVERY MORNING AND TAKE 1 TABLET BY MOUTH EVERY EVENING DO ALL THIS FOR 6 DAYS No sulfametho xazole 800 mg-trimeth oprim 160 mg tablet TAKE 1 TABLET BY MOUTH EVERY MORNING AND TAKE 1 TABLET BY MOUTH EVERY EVENING DO ALL THIS FOR 6 DAYS [facility] tizanidine 4 mg tablet Take 1 tablet every day by oral route at bedtime for 21 days. tizanidine 4 mg tablet Take 1 tablet every day by oral route at bedtime for 21 days. No 1 Q1D tizanidine 4 mg tablet Take 1 tablet every day by oral route at bedtime for 21 days. [facility] tramadol 50 mg tablet TAKE 1 TABLET BY MOUTH EVERY 6 HOURS FOR UP TO 7 DAYS NEEDED FOR SEVERE PAIN OR ACUTE PAIN tramadol 50 mg tablet TAKE 1 TABLET BY MOUTH EVERY 6 HOURS FOR UP TO 7 DAYS NEEDED FOR SEVERE PAIN OR ACUTE PAIN No tramadol 50 mg tablet TAKE 1 TABLET BY MOUTH EVERY 6 HOURS FOR UP TO 7 DAYS NEEDED FOR SEVERE PAIN OR ACUTE PAIN [facility] varenicline 1 mg tablet TAKE ONE (1) TABLET(S) BY MOUTH TWICE DAILY. varenicline 1 mg tablet TAKE ONE (1) TABLET(S) BY MOUTH TWICE DAILY. No vareniclin e 1 mg tablet TAKE ONE (1) TABLET(S) BY MOUTH TWICE DAILY. [facility] zolpidem ER 12.5 mg tablet,exte nded release,mul tiphase TAKE 1 TABLET BY MOUTH AT BEDTIME NEEDED FOR SLEEP zolpidem ER 12.5 mg tablet,exte nded release,mul tiphase TAKE 1 TABLET BY MOUTH AT BEDTIME NEEDED FOR SLEEP No zolpidem ER 12.5 mg tablet,ext ended release,mu ltiphase TAKE 1 TABLET BY MOUTH AT BEDTIME NEEDED FOR SLEEP [facility] albuterol sulfate HFA 90 mcg/actuati on aerosol inhaler albuterol sulfate HFA 90 mcg/actuati on aerosol inhaler No albuterol sulfate HFA 90 mcg/actuat ion aerosol inhaler [facility] Vital Signs Vital Name Observation Time Observation Value Comments S ource Body Weight 2023-08-07 00:00:00 210 [lb_av] [facility] Height 2023-08-07 00:00:00 67 [in_i] [facility] BMI (Body Mass Index) 2023-08-07 00:00:00 32.9 kg/m2 [facility] Systolic blood pressure 2023-08-02 19:12:00 141 mm[Hg] Denies conte/dz/chest pain/sob [facility] Diastolic blood pressure 2023-08-02 19:12:00 81 mm[Hg] Denies conte/dz/chest pain/sob [facility] Heart rate 2023-08-02 19:12:00 72 /min [facility] Body temperature 2023-08-02 19:12:00 35.94 Alexa [facility] Respiratory rate 2023-08-02 19:12:00 14 /min [facility] Body height 2023-08-02 19:12:00 170.2 cm [facility] Body weight 2023-08-02 19:12:00 97.07 kg [facility] BMI 2023-08-02 19:12:00 33.52 kg/m2 [facility] Oxygen saturation in Arterial blood by Pulse oximetry 2023-08-02 19:12:00 100 /min [facility] Systolic blood pressure 2023-07-05 20:25:00 162 mm[Hg] [facility] Diastolic blood pressure 2023-07-05 20:25:00 93 mm[Hg] [facility] Heart rate 2023-07-05 20:25:00 86 /min [facility] Body temperature 2023-07-05 20:25:00 36.61 Alexa [facility] Respiratory rate 2023-07-05 20:25:00 16 /min [facility] Body height 2023-07-05 20:25:00 170.2 cm [facility] Body weight 2023-07-05 20:25:00 99.746 kg [facility] BMI 2023-07-05 20:25:00 34.44 kg/m2 [facility] Oxygen saturation in Arterial blood by Pulse oximetry 2023-07-05 20:25:00 100 /min [facility] Systolic blood pressure 2023-05-24 20:21:00 157 mm[Hg] [facility] Diastolic blood pressure 2023-05-24 20:21:00 88 mm[Hg] [facility] Heart rate 2023-05-24 20:21:00 82 /min [facility] Body temperature 2023-05-24 20:19:00 36.5 Alexa [facility] Respiratory rate 2023-05-24 20:19:00 18 /min [facility] Body height 2023-05-24 20:19:00 170.2 cm [facility] Body weight 2023-05-24 20:19:00 94.484 kg [facility] BMI 2023-05-24 20:19:00 32.62 kg/m2 [facility] Oxygen saturation in Arterial blood by Pulse oximetry 2023-05-24 20:19:00 100 /min [facility] Systolic blood pressure 2023-05-19 17:56:00 155 mm[Hg] [facility] Diastolic blood pressure 2023-05-19 17:56:00 89 mm[Hg] [facility] Heart rate 2023-05-19 17:56:00 105 /min [facility] Respiratory rate 2023-05-19 17:56:00 18 /min [facility] Oxygen saturation in Arterial blood by Pulse oximetry 2023-05-19 17:56:00 96 /min [facility] Body temperature 2023-05-19 14:53:00 37.28 Alexa [facility] Body height 2023-05-19 14:53:00 170.2 cm [facility] Body weight 2023-05-19 14:53:00 93.895 kg [facility] BMI 2023-05-19 14:53:00 32.42 kg/m2 [facility] Systolic blood pressure 2023-05-10 19:44:00 147 mm[Hg] [facility] Diastolic blood pressure 2023-05-10 19:44:00 87 mm[Hg] [facility] Heart rate 2023-05-10 19:44:00 71 /min [facility] Body temperature 2023-05-10 19:44:00 36.61 Alexa [facility] Respiratory rate 2023-05-10 19:44:00 16 /min [facility] Body height 2023-05-10 19:44:00 170.2 cm [facility] Body weight 2023-05-10 19:44:00 94.938 kg [facility] BMI 2023-05-10 19:44:00 32.78 kg/m2 [facility] Oxygen saturation in Arterial blood by Pulse oximetry 2023-05-10 19:44:00 100 /min [facility] Systolic blood pressure 2023-04-24 16:58:00 136 mm[Hg] [facility] Diastolic blood pressure 2023-04-24 16:58:00 79 mm[Hg] [facility] Heart rate 2023-04-24 16:58:00 77 /min [facility] Body temperature 2023-04-24 16:58:00 36.11 Alexa [facility] Respiratory rate 2023-04-24 16:58:00 17 /min [facility] Oxygen saturation in Arterial blood by Pulse oximetry 2023-04-24 16:58:00 97 /min [facility] Body height 2023-04-17 23:59:00 170.2 cm [facility] Body weight 2023-04-17 23:59:00 95.255 kg [facility] BMI 2023-04-17 23:59:00 32.89 kg/m2 [facility] Systolic blood pressure 2023-04-19 15:45:00 126 mm[Hg] [facility] Diastolic blood pressure 2023-04-19 15:45:00 77 mm[Hg] [facility] Heart rate 2023-04-19 15:45:00 72 /min [facility] Respiratory rate 2023-04-19 15:45:00 11 /min [facility] Oxygen saturation in Arterial blood by Pulse oximetry 2023-04-19 15:45:00 100 /min [facility] Body temperature 2023-04-19 15:32:00 36.22 Alexa [facility] Body height 2023-04-17 23:59:00 170.2 cm [facility] Body weight 2023-04-17 23:59:00 95.255 kg [facility] BMI 2023-04-17 23:59:00 32.89 kg/m2 [facility] Systolic blood pressure 2023-04-17 19:26:00 104 mm[Hg] [facility] Diastolic blood pressure 2023-04-17 19:26:00 66 mm[Hg] [facility] Heart rate 2023-04-17 19:26:00 85 /min [facility] Body temperature 2023-04-17 19:26:00 35.78 Alexa [facility] Respiratory rate 2023-04-17 19:26:00 10 /min [facility] Body height 2023-04-17 19:26:00 170.2 cm [facility] Body weight 2023-04-17 19:26:00 95.255 kg [facility] BMI 2023-04-17 19:26:00 32.89 kg/m2 [facility] Systolic blood pressure 2023-04-16 15:44:00 130 mm[Hg] [facility] Diastolic blood pressure 2023-04-16 15:44:00 85 mm[Hg] [facility] Heart rate 2023-04-16 15:44:00 105 /min [facility] Body temperature 2023-04-16 15:44:00 37.72 Alexa [facility] Respiratory rate 2023-04-16 15:44:00 18 /min [facility] Body weight 2023-04-16 15:44:00 96.344 kg [facility] BMI 2023-04-16 15:44:00 33.27 kg/m2 [facility] Oxygen saturation in Arterial blood by Pulse oximetry 2023-04-16 15:44:00 98 /min [facility] Systolic blood pressure 2023-04-09 13:33:00 112 mm[Hg] [facility] Diastolic blood pressure 2023-04-09 13:33:00 69 mm[Hg] [facility] Heart rate 2023-04-09 13:33:00 69 /min [facility] Body temperature 2023-04-09 13:33:00 36.83 Alexa [facility] Respiratory rate 2023-04-09 13:33:00 18 /min [facility] Oxygen saturation in Arterial blood by Pulse oximetry 2023-04-09 13:33:00 97 /min [facility] Body height 2023-04-03 05:45:00 170.2 cm [facility] Body weight 2023-04-03 05:45:00 100.5 kg [facility] BMI 2023-04-03 05:45:00 34.70 kg/m2 [facility] Systolic blood pressure 2023-04-02 19:00:00 105 mm[Hg] [facility] Diastolic blood pressure 2023-04-02 19:00:00 93 mm[Hg] [facility] Heart rate 2023-04-02 19:00:00 61 /min [facility] Respiratory rate 2023-04-02 19:00:00 14 /min [facility] Oxygen saturation in Arterial blood by Pulse oximetry 2023-04-02 19:00:00 100 /min [facility] Body weight 2023-04-02 15:21:00 90.719 kg [facility] BMI 2023-04-02 15:21:00 34.70 kg/m2 [facility] Body temperature 2023-04-02 15:20:00 36.78 Alexa [facility] Systolic blood pressure 2023-04-02 13:30:00 102 mm[Hg] [facility] Diastolic blood pressure 2023-04-02 13:30:00 66 mm[Hg] [facility] Heart rate 2023-04-02 13:30:00 73 /min [facility] Respiratory rate 2023-04-02 13:30:00 12 /min [facility] Oxygen saturation in Arterial blood by Pulse oximetry 2023-04-02 13:30:00 100 /min [facility] Body temperature 2023-04-02 12:00:00 36.33 Alexa [facility] Body height 2023-04-02 12:00:00 170.2 cm [facility] Body weight 2023-04-02 12:00:00 90.719 kg [facility] BMI 2023-04-02 12:00:00 31.32 kg/m2 [facility] Systolic blood pressure 2023-02-13 20:00:00 153 mm[Hg] [facility] Diastolic blood pressure 2023-02-13 20:00:00 96 mm[Hg] [facility] Heart rate 2023-02-13 20:00:00 86 /min [facility] Respiratory rate 2023-02-13 20:00:00 19 /min [facility] Oxygen saturation in Arterial blood by Pulse oximetry 2023-02-13 20:00:00 100 /min [facility] Body temperature 2023-02-13 15:06:00 37.22 Alexa [facility] Body height 2023-02-13 15:06:00 170.2 cm [facility] Body weight 2023-02-13 15:06:00 97.523 kg [facility] BMI 2023-02-13 15:06:00 33.67 kg/m2 [facility] Systolic blood pressure 2023-02-10 21:30:00 127 mm[Hg] [facility] Diastolic blood pressure 2023-02-10 21:30:00 107 mm[Hg] [facility] Heart rate 2023-02-10 21:30:00 90 /min [facility] Respiratory rate 2023-02-10 21:30:00 19 /min [facility] Oxygen saturation in Arterial blood by Pulse oximetry 2023-02-10 21:30:00 100 /min [facility] Body temperature 2023-02-10 16:05:00 37.39 Alexa [facility] Body height 2023-02-10 16:05:00 170.2 cm [facility] Body weight 2023-02-10 16:05:00 83.915 kg [facility] BMI 2023-02-10 16:05:00 28.98 kg/m2 [facility] Systolic blood pressure 2023-01-22 18:24:00 119 mm[Hg] [facility] Diastolic blood pressure 2023-01-22 18:24:00 82 mm[Hg] [facility] Heart rate 2023-01-22 18:24:00 93 /min [facility] Body temperature 2023-01-22 18:24:00 36.44 Alexa [facility] Respiratory rate 2023-01-22 18:24:00 18 /min [facility] Body height 2023-01-22 18:24:00 170.2 cm [facility] Body weight 2023-01-22 18:24:00 89.359 kg [facility] BMI 2023-01-22 18:24:00 30.85 kg/m2 [facility] Oxygen saturation in Arterial blood by Pulse oximetry 2023-01-22 18:24:00 96 /min [facility] Systolic blood pressure 2022-12-25 20:37:00 124 mm[Hg] [facility] Diastolic blood pressure 2022-12-25 20:37:00 75 mm[Hg] [facility] Heart rate 2022-12-25 20:37:00 61 /min [facility] Body temperature 2022-12-25 20:37:00 36.11 Alexa [facility] Body height 2022-12-25 20:37:00 170.2 cm [facility] Body weight 2022-12-25 20:37:00 92.443 kg [facility] BMI 2022-12-25 20:37:00 31.92 kg/m2 [facility] Oxygen saturation in Arterial blood by Pulse oximetry 2022-12-25 20:37:00 100 /min [facility] Systolic blood pressure 2022-12-04 21:06:00 152 mm[Hg] [facility] Diastolic blood pressure 2022-12-04 21:06:00 90 mm[Hg] [facility] Heart rate 2022-12-04 21:02:00 67 /min [facility] Body temperature 2022-12-04 21:02:00 36.61 Alexa [facility] Respiratory rate 2022-12-04 21:02:00 18 /min [facility] Body height 2022-12-04 21:02:00 170.2 cm [facility] Body weight 2022-12-04 21:02:00 93.985 kg [facility] BMI 2022-12-04 21:02:00 32.45 kg/m2 [facility] Oxygen saturation in Arterial blood by Pulse oximetry 2022-12-04 21:02:00 99 /min [facility] Systolic blood pressure 2022-11-23 17:21:00 157 mm[Hg] [facility] Diastolic blood pressure 2022-11-23 17:21:00 89 mm[Hg] [facility] Heart rate 2022-11-23 17:21:00 65 /min [facility] Body temperature 2022-11-23 17:21:00 35.56 Alexa [facility] Respiratory rate 2022-11-23 17:21:00 18 /min [facility] Oxygen saturation in Arterial blood by Pulse oximetry 2022-11-23 17:21:00 100 /min [facility] Body weight 2022-11-22 01:01:00 99.791 kg [facility] BMI 2022-11-22 01:01:00 34.46 kg/m2 [facility] Systolic blood pressure 2022-11-22 17:00:00 149 mm[Hg] [facility] Diastolic blood pressure 2022-11-22 17:00:00 81 mm[Hg] [facility] Heart rate 2022-11-22 17:00:00 52 /min [facility] Body temperature 2022-11-22 17:00:00 36.61 Alexa [facility] Respiratory rate 2022-11-22 17:00:00 12 /min [facility] Oxygen saturation in Arterial blood by Pulse oximetry 2022-11-22 17:00:00 96 /min [facility] Body weight 2022-11-22 01:01:00 99.791 kg [facility] BMI 2022-11-22 01:01:00 34.46 kg/m2 [facility] Systolic blood pressure 2022-11-21 23:03:00 174 mm[Hg] [facility] Diastolic blood pressure 2022-11-21 23:03:00 89 mm[Hg] [facility] Heart rate 2022-11-21 23:03:00 70 /min [facility] Respiratory rate 2022-11-21 23:03:00 16 /min [facility] Oxygen saturation in Arterial blood by Pulse oximetry 2022-11-21 23:03:00 97 /min [facility] Body temperature 2022-11-21 17:29:00 37.22 Alexa [facility] Body height 2022-11-21 17:29:00 170.2 cm [facility] Body weight 2022-11-21 17:29:00 99.791 kg [facility] BMI 2022-11-21 17:29:00 34.46 kg/m2 [facility] BP Diastolic 2020-03-15 18:24:00 94 mm[Hg] [facility] BP Systolic 2020-03-15 18:24:00 165 mm[Hg] [facility] Heart Rate 2020-03-15 18:24:00 79 /min [facility] Respiratory rate 2020-03-15 18:24:00 18 /min [facility] Body Temperature 2020-03-15 18:24:00 98.5 [degF] [facility] BP Diastolic 2020-03-15 16:21:00 114 mm[Hg] [facility] BP Systolic 2020-03-15 16:21:00 206 mm[Hg] [facility] Heart Rate 2020-03-15 16:21:00 78 /min [facility] Respiratory rate 2020-03-15 16:21:00 20 /min [facility] Body Temperature 2020-03-15 16:21:00 98.5 [degF] [facility] BP Diastolic 2020-03-15 16:19:00 114 mm[Hg] [facility] BP Systolic 2020-03-15 16:19:00 206 mm[Hg] [facility] Heart Rate 2020-03-15 16:19:00 78 /min [facility] Respiratory rate 2020-03-15 16:19:00 20 /min [facility] Body Temperature 2020-03-15 16:19:00 98.5 [degF] [facility] Procedures Procedure Date / Time Performed Performing Clinician Source XR, shoulder, 2 or more view 2023-08-07 00:00:00 [facility] MRI, shoulder, w/o contrast 2023-08-07 00:00:00 [facility] DME/SUPPLY JUSTIFICATION 2023-06-26 06:01:00 Doc tor Unassigned, Register [facility] US DUPLEX VENOUS ARM LEFT - BY VASCULAR LAB 2023-05-19 16:24:00 Roseline Mcmahon [facility] COMP. METABOLIC PANEL (13027) 2023-05-19 15:03:00 Roseline Mcmahon [facility] ETHANOL 2023-05-19 15:03:00 Roseline Mcmahon Un [facility] CBC WITH DIFF 2023-05-19 15:03:00 [facility] 2023-04-25 06:01:00 Doctor Unass igned, Register [facility] POCT GLUCOSE (AUTOMATED) 2023-04-22 14:11:00 Lisha Bonilla [facility] CBC WITH DIFF 2023-04-22 [facility]:55[facility]-04-22 11:54:00 Sayra Arnold [facility] BASIC METABOLIC PANEL (NA, K, CL, CO2, GLUCOSE, BUN, CREATININE, CA) 2023-04-22 11:54:00 Magdalene Arnold [facility] PHOSPHORUS 2023-04-21 11:34[facility]23-04-21 11:34:00 Sayra Arnold [facility] BASIC METABOLIC PANEL (NA, K, CL, CO2, GLUCOSE, BUN, CREATININE, CA) 2023-04-21 11:34[facility] 2023-04-21 11:34:00 Sayra Arnold [facility] ACTIVATED PARTIAL THRMPLAS DIDI 2023-04-21 06:50:00 Jony Acuna [facility] ACTIVATED PARTIAL THRMPLAS DIDI 2023-04-20 21:25:00 Jony Acuna [facility] ACTIVATED PARTIAL THRMPLAS DIDI 2023-04-20 12:51:00 Honey [facility] ACTIVATED PARTIAL THRMPLAS DIDI 2023-04-20 12:51:00 Honey [facility] VANCOMYCIN TROUGH 2023-04-20 00:41:00 Jony Acuna [facility] ACTIVATED PARTIAL THRMPLAS DIDI 2023-04-20 00:41:00 Jony Acuna [facility] VANCOMYCIN TROUGH 2023-04-20 00:41:00 Jony Acuna [facility] ACTIVATED PARTIAL THRMPLAS DIDI 2023-04-20 00:41:00 Jony Acuna [facility] CBC WITH DIFF 2023-04-19 17:49:00 Marquez Lagos Un [facility] CBC WITH DIFF 2023-04-19 17:49:00 [facility] 2023-04-19 17:48:00 Marquez Lagos [facility] [facility] MAGNESIUM 2023-04-19 17:48:00 Marquez Lagos [facility] BASIC METABOLIC PANEL (NA, K, CL, CO2, GLUCOSE, BUN, CREATININE, CA) 2023-04-19 17:48:00 Marquez Lagos [facility] ACTIVATED PARTIAL THRMPLAS DIDI 2023-04-19 17:48:00 Jony Acuna [facility] PHOSPHORUS 2023-04-19 17:48:00 Marquez Lagos [facility] MAGNESIUM 2023-04-19 17:48:00 Marquez Lagos [facility] BASIC METABOLIC PANEL (NA, K, CL, CO2, GLUCOSE, BUN, CREATININE, CA) 2023-04-19 17:48:00 Marquez Lagos [facility] ACTIVATED PARTIAL THRMPLAS DIDI 2023-04-19 17:48:00 [facility] W[facility] LOWER EXTREMITY 2023-04-19 13:40:00 Riya [facility] EXPLORATION WOUND LOWER EXTREMITY 2023-04-19 13:40:00 Riya [facility] ACTIVATED PARTIAL THRMPLAS DIDI 2023-04-19 05:56:00 Armand [facility] ACTIVATED PARTIAL THRMPLAS DIDI 2023-04-19 05:56:00 Armand [facility] ACTIVATED PARTIAL THRMPLAS DIDI 2023-04-18 23:59:00 Armand [facility] ACTIVATED PARTIAL THRMPLAS DIDI 2023-04-18 23:59:00 Armand [facility] ACTIVATED PARTIAL THRMPLAS DIDI 2023-04-18 17:40:00 Armand [facility] ACTIVATED PARTIAL THRMPLAS DIDI 2023-04-18 17:40:00 Armand [facility] BLOOD CULTURE SCREEN 2023-04-18 10:05:00 Armand [facility] BLOOD CULTURE SCREEN 2023-04-18 10:05:00 Armand [facility] ACTIVATED PARTIAL THRMPLAS DIDI 2023-04-18 10:04:00 Armand [facility] ACTIVATED PARTIAL THRMPLAS DIDI 2023-04-18 10:04:00 Armand [facility] BLOOD CULTURE SCREEN 2023-04-18 04:07:00 Armand [facility] PROTHROMBIN TIME / INR 2023-04-18 04:07:00 Armand [facility] ACTIVATED PARTIAL THRMPLAS DIDI 2023-04-18 04:07:00 Jony Acuna [facility] BLOOD CULTURE SCREEN 2023-04-18 04:07:00 Jony Acuna [facility] PROTHROMBIN TIME / INR 2023-04-18 04:07:00 ArmandAlec [facility] ACTIVATED PARTIAL THRMPLAS DIDI 2023-04-18 04:07:00 Jony Acuna [facility] BASIC METABOLIC PANEL (NA, K, CL, CO2, GLUCOSE, BUN, CREATININE, CA) 2023-04-18 04:06:00 [facility] WITH [facility]FF 2023-04-18 04:06:[address] [facility] BASIC METABOLIC PANEL (NA, K, CL, CO2, GLUCOSE, BUN, CREATININE, CA) 2023-04-18 04:06:00 [facility] WITH DIFF 2023-04-18 04:06:[address] [facility] HB ABO GROUPING 2023-04-18 04:05:00 Jony Acuna [facility] HB ABO GROUPING 2023-04-18 04:05:00 Armand [facility] POCT SARS-COV-2 ANTIGEN (BINAX NOW) 2023-04-16 16:08:00 Freda Palma [facility] POCT MOLECULAR FLU 2023-04-16 15:52:00 Unknown, Attend [facility] PHOSPHORUS 2023-04-08 12:01:00 Jony Acuna [facility] MAGNESIUM 2023-04-08 12:01:00 Jony Acuna [facility] BASIC METABOLIC PANEL (NA, K, CL, CO2, GLUCOSE, BUN, CREATININE, CA) 2023-04-08 12:01:00 Jony Acuna [facility] CBC WITHOUT DIFF 2023-04-08 12:01:00 Jony Acuna [facility] MAGNESIUM 2023-04-06 10:02:00 Cruz Zazueta [facility] BASIC METABOLIC PANEL (NA, K, CL, CO2, GLUCOSE, BUN, CREATININE, CA) 2023-04-06 10:02:00 Lan Zazueta [facility] CBC WITH DIFF 2023-04-06 10:02:00 Cruz Zazueta [facility] PHOSPHORUS 2023-04-05 12:13:00 Ramakrishna Buenrostro [facility] MAGNESIUM 2023-04-05 12:13:00 Ramakrishna Buenrostro [facility] BASIC METABOLIC PANEL (NA, K, CL, CO2, GLUCOSE, BUN, CREATININE, CA) 2023-04-05 12:13:00 Ramakrishna Buenrostro [facility] CBC WITH DIFF 2023-04-05 12:13:00 Ramakrishna Buenrostro [facility] ACTIVATED PARTIAL THRMPLAS DIDI 2023-04-05 12:06:00 Rashawn [facility] ACTIVATED PARTIAL THRMPLAS DIDI 2023-04-05 05:41:00 Rashawn [facility] ACTIVATED PARTIAL THRMPLAS DIDI 2023-04-04 23:12:00 Rashawn [facility] PREPARE PACKED RBC 2023-04-04 14:29:41 Alex Lagos [facility] BASIC METABOLIC PANEL (NA, K, CL, CO2, GLUCOSE, BUN, CREATININE, CA) 2023-04-04 12:43:00 Sarah Carbone [facility] PHOSPHORUS 2023-04-04 11:24:00 DibSarah ladd [facility] MAGNESIUM 2023-04-04 11:24:00 DibbsSarah [facility] CBC WITH DIFF 2023-04-04 11:24:00 Sarah Carbone [facility] ACTIVATED PARTIAL THRMPLAS DIDI 2023-04-04 11:24:00 Rashawn [facility] ACTIVATED PARTIAL THRMPLAS DIDI 2023-04-04 04:08:00 Rashawn [facility] MISCELLANEOUS SEND OUT TEST 2023-04-04 00:46:00 Mane Galindo [facility] ANTICARDIOLIPIN ANTIBODIES 2023-04-04 00:11:00 Mane Higuera [facility] ANTI-B2 GLYCOPROTEIN I AB 2023-04-04 00:11:00 Mane Sterling [facility] FACTOR 5 LEIDEN 2023-04-04 00:11:00 Mane Galindo [facility] FACTOR 2 [id number] MUTATION 2023-04-04 00:11:00 Mane Sterling [facility] F5 LEIDEN AND F2 [id number] MUTATIONS 2023-04-04 00:11:00 Mane Galindo [facility] ANTIPHOSPHOLIPID ANTIBODY TESTS AND EVALUATION 2023-04-04 00:11:00 Mane Galindo [facility] ANTIPHOSPHOLIPID ANTIBODY EVALUATION-LT BLUE 2023-04-04 00:11:00 Mane Galindo [facility] ANTIPHOSPHOLIPID ANTIBODY EVALUATION-SST 2023-04-04 00:11:00 Mane Galindo [facility] PAROXYSMAL NOCTURNAL HEMOGLOBINURIA (PNH), HIGH SENSITIVITY, RBC AND WBC 2023-04-04 00:11:00 Mane Galindo [facility] LUPUS ANTICOAGULANT REFLEXIVE PANEL 2023-04-04 00:11:00 Lisha Ritter [facility] REFLEX THROMBIN TIME REFLEX BILL 2023-04-04 00:11:00 Mane Galindo [facility] REFLEX REPTILASE TIME REFLEX BILL 2023-04-04 00:11:00 Mane Galindo [facility] REFLEX PTT-D HEPARIN REFLEX BILL 2023-04-04 00:11:00 Mane Galindo [facility] ANTI-NUCLEAR ANTIBODY SCREEN 2023-04-03 21:32:00 Lesvia Calle [facility] ANTI-NUCLEAR ANTIBODY TITER 2023-04-03 21:32:00 Lesvia Calle [facility] ANTI-NUCLEAR ANTIBODY-PATHOLOGIST INTERPRETATION 2023-04-03 21:32:00 Lesvia Calle [facility] TRANSTHORACIC ECHO (TTE) COMPLETE W/ CONTRAST 2023-04-03 17:19:28 Chitra, [facility] TRANSTHORACIC ECHO (TTE) COMPLETE W/ CONTRAST 2023-04-03 17:19:28 Ramakrishna Buenrostro [facility] ACTIVATED PARTIAL THRMPLAS DIDI 2023-04-03 16:25:00 Rashawn [facility] ACTIVATED PARTIAL THRMPLAS DIDI 2023-04-03 16:25:00 Latrell Morocho [facility] PHOSPHORUS 2023-04-03 09:54:00 [facility] 2023-04-03 09:54:00 Pat Vo [facility] BASIC METABOLIC PANEL (NA, K, CL, CO2, GLUCOSE, BUN, CREATININE, CA) 2023-04-03 09:54:00 Pat Vo [facility] CBC WITH DIFF 2023-04-03 09:54:00 Pat [facility] PHOS[facility]US 2023-04-03 09:54:00 [facility] MAG[facility]UM 2023-04-03 09:54:00 Pat Vo Un [facility] BASIC METABOLIC PANEL (NA, K, CL, CO2, GLUCOSE, BUN, CREATININE, CA) 2023-04-03 09:54:00 Pat Vo [facility] CBC WITH DIFF 2023-04-03 09:54:00 Pat Vo [facility] AC PANEL 20 + LACTIC ACID 2023-04-03 06:20:[address] [facility] AC PANEL 20 + LACTIC ACID 2023-04-03 06:20:[address] [facility] CBC WITHOUT DIFF 2023-04-03 06:16:00 [facility] CBC WITHOUT DIFF 2023-04-03 06:16:00 [facility] BASIC METABOLIC PANEL (NA, K, CL, CO2, GLUCOSE, BUN, CREATININE, CA) 2023-04-03 06:15:00 [facility] 2023-04-03 06:15:00 [facility] TH[facility]PLAS DIDI 2023-04-03 06:15:00 Lloyd Ervin [facility] BASIC METABOLIC PANEL (NA, K, CL, CO2, GLUCOSE, BUN, CREATININE, CA) 2023-04-03 06:15:00 [facility] / INR 2023-04-03 06:15:00 Alyse Ervin [facility] ACTIVATED PARTIAL THRMPLAS DIDI 2023-04-03 06:15:00 Lloyd Ervin [facility] FL TIME OR (NON-REPORTABLE) 2023-04-03 04:33:01 Rashawn [facility] FL TIME OR (NON-REPORTABLE) 2023-04-03 04:33:01 Rashawn [facility] VBG+VCOOX+NA+K+GLU+CA2+ 2023-04-03 03:45:00 Lisha Patton [facility] POCT ACT HIGH RANGE 2023-04-03 03:14:00 Valentino Ritter [facility] POCT ACT HIGH RANGE 2023-04-03 03:14:00 Valentino Ritter [facility] BASIC METABOLIC PANEL (NA, K, CL, CO2, GLUCOSE, BUN, CREATININE, CA) 2023-04-03 03:07:00 Lisha Ritter [facility] BASIC METABOLIC PANEL (NA, K, CL, CO2, GLUCOSE, BUN, CREATININE, CA) 2023-04-03 03:07:00 Lisha Ritter [facility] CBC WITH DIFF 2023-04-03 02:59:00 Lisha Ritter Un [facility] CBC WITH DIFF 2023-04-03 02:59:00 Lisha Ritter [facility] VBG+VCOOX+NA+K+GLU+CA2+ 2023-04-03 02:37:00 Lisha Patton [facility] VBG+VCOOX+NA+K+GLU+CA2+ 2023-04-03 02:37:00 Lisha Patton [facility] POCT ACT HIGH RANGE 2023-04-03 02:30:00 Valentino Ritter [facility] POCT ACT HIGH RANGE 2023-04-03 02:30:00 Valentino Ritter [facility] VBG+VCOOX+NA+K+GLU+CA2+ 2023-04-03 02:06:00 [facility]+VC[facility]X+NA+K+GLU+CA2+ 2023-04-03 02:06:00 Lisha Patton [facility] POCT ACT HIGH RANGE 2023-04-03 01:56:00 Valentino Ritter [facility] POCT ACT HIGH RANGE 2023-04-03 01:56:00 Valentino Ritter [facility] POCT ACT HIGH RANGE 2023-04-03 01:23:00 Valentino Ritter [facility] POCT ACT HIGH RANGE 2023-04-03 01:23:00 Valentino Ritter [facility] ABG+COOX+NA+K+GLU+CA2+ 2023-04-03 00:59:00 Lisha Ritter [facility] ABG+COOX+NA+K+GLU+CA2+ 2023-04-03 00:59:00 Lisha Ritter [facility] POCT ACT HIGH RANGE 2023-04-03 00:56:00 Valentino Ritter [facility] POCT ACT HIGH RANGE 2023-04-03 00:56:00 Valentino Ritter [facility] POCT ACT HIGH RANGE 2023-04-03 00:52:00 Valentino Ritter [facility] POCT ACT HIGH RANGE 2023-04-03 00:52:00 Valentino Ritter [facility] ABG+COOX+NA+K+GLU+CA2+ 2023-04-03 00:11:00 Lisha Ritter [facility] ABG+COOX+NA+K+GLU+CA2+ 2023-04-03 00:11:00 Lisha Ritter [facility] POCT ACT HIGH RANGE 2023-04-03 00:05:00 Valentino Ritter [facility] POCT ACT HIGH RANGE 2023-04-03 00:05:00 Valentino Ritter [facility] ABG+COOX+NA+K+GLU+CA2+ 2023-04-02 23:35:00 [facility]G+COOX+NA+K+GLU+CA2+ 2023-04-02 23:35:00 [facility] PO[facility] HIGH RANGE 2023-04-02 23:30:00 Valentino Ritter [facility] POCT ACT HIGH RANGE 2023-04-02 23:30:00 Valentino Ritter [facility] ABG+COOX+NA+K+GLU+CA2+ 2023-04-02 22:17:00 [facility] ABG+COOX+NA+K+GLU+CA2+ 2023-04-02 22:17:00 [facility] PO[facility] HIGH RANGE 2023-04-02 22:15:00 Valentino Ritter [facility] POCT ACT HIGH RANGE 2023-04-02 22:15:00 Valentino Ritter [facility] POCT ACT HIGH RANGE 2023-04-02 21:41:00 Valentino Ritter [facility] POCT ACT HIGH RANGE 2023-04-02 21:41:00 Valentino Ritter [facility] ABG+COOX+NA+K+GLU+CA2+ 2023-04-02 21:23:00 [facility] ABG+COOX+NA+K+GLU+CA2+ 2023-04-02 21:23:00 [facility] ART[facility] 2023-04-02 21:08:00 Mike Cid [facility] INTUBATION 2023-04-02 20:45:00 Mike Cid [facility] ARTERIOGRAM 2023-04-02 19:46:00 Lisha Ritter [facility] ARTERIAL THROMBECTOMY 2023-04-02 19:46:00 Riya [facility] FEMORAL-POPLITEAL BYPASS GRAFT 2023-04-02 19:46:00 Riya [facility] ARTERIOGRAM 2023-04-02 19:46:00 Lisha Ritter [facility] ARTERIAL THROMBECTOMY 2023-04-02 19:46:00 Riya [facility] FEMORAL-POPLITEAL BYPASS GRAFT 2023-04-02 19:46:00 Riya [facility] ACTIVATED PARTIAL THRMPLAS DIDI 2023-04-02 19:20:00 Semaj Morochoutam [facility] ACTIVATED PARTIAL THRMPLAS DIDI 2023-04-02 19:20:00 Rashawn [facility] PREPARE PACKED RBC 2023-04-02 18:29:34 Rashawn [facility] HB ABO GROUPING 2023-04-02 16:31:00 Latrell [facility]BO GROUPING 2023-04-02 16:31:00 Latrell Morocho Un [facility] COMP. METABOLIC PANEL ([id number]) 2023-04-02 12:27:00 Larry Zamora [facility] CBC WITH DIFF 2023-04-02 12:27:00 Larry Zamora [facility] PROTHROMBIN TIME / INR 2023-04-02 12:27:00 Silvestre Zamora [facility] FIBRINOGEN 2023-04-02 12:27:00 Lisha Ritter [facility] FIBRINOGEN 2023-04-02 12:27:00 Lisha Ritter [facility] LACTIC ACID WHOLE BLOOD 2023-04-02 12:26:00 Shasta Zamora [facility] RAPID INFLUENZA A/B 2023-02-13 19:44:00 Shavonne Randall [facility] POCT TEST 2023-02-13 19:03:00 Shavonne Randall [facility] URINE DRUG (IMMUNOASSAY) - COMPREHENSIVE DRUG SCREEN 2023-02-13 17:37:00 Heather Randall [facility] XR CHEST 2 VW 2023-02-13 16:27:00 Heather Randall [facility] TROPONIN I 2023-02-13 16:11:00 Heather Randall [facility] COMP. METABOLIC PANEL ([id number]) 2023-02-13 16:11:00 Heather Randall [facility] CBC WITH DIFF 2023-02-13 16:11:00 Heather Randall [facility] N-TERMINAL PRO-BNP 2023-02-13 16:11:00 Heather Randall [facility] HB ECG ROUTINE & RHYTHM STRIP 2023-02-13 15:24:04 Jaylene Randallherine [facility] CONSENT/REFUSAL FOR DIAGNOSIS AND TREATMENT 2023-02-13 14:59:55 Doctor Unassigned, Register [facility] EKG-12 LEAD 2023-02-10 21:52:29 Yomaira Renee [facility] URINALYSIS 2023-02-10 17:44:00 Yomaira Renee [facility] MAGNESIUM 2023-02-10 17:31:00 Yomaira Renee [facility] TROPONIN I 2023-02-10 17:31:00 Yomaira Renee [facility] COMP. METABOLIC PANEL ([id number]) 2023-02-10 17:31:00 Yomaira Renee [facility] CBC WITH DIFF 2023-02-10 17:31:00 Yomaira Renee [facility] N-TERMINAL PRO-BNP 2023-02-10 17:31:00 Yomaira Renee [facility] LIPASE 2023-02-10 17:31:00 Heather Randall [facility] XR CHEST 1 VW 2023-02-10 17:17:17 Yomaira Renee [facility] CONSENT/REFUSAL FOR DIAGNOSIS AND TREATMENT 2023-02-10 16:02:29 Doctor Unassigned, Register [facility] DISABILITY/FMLA 2023-01-24 05:01:00 Doctor Unass igned, Register [facility] DUPLEX ARTERIAL LEG LEFT - BY VASCULAR LAB 2023-01-04 18:27:00 Leopoldo Fraser [facility] POCT GLUCOSE (AUTOMATED) 2023-01-02 18:27:00 Alda Fraser [facility] ASSIGNMENT OF BENEFITS 2022-12-04 20:48:35 Docto r Unassigned, Register [facility] BASIC METABOLIC PANEL (NA, K, CL, CO2, GLUCOSE, BUN, CREATININE, CA) 2022-11-23 11:12:00 Aziza [facility] CBC WITH DIFF 2022-11-23 11:12:00 Aziza [facility] ACTIVATED PARTIAL THRMPLAS DIDI 2022-11-23 11:12:00 Aziza [facility] BASIC METABOLIC PANEL (NA, K, CL, CO2, GLUCOSE, BUN, CREATININE, CA) 2022-11-23 11:12:00 Aziza [facility] CBC WITH DIFF 2022-11-23 11:12:00 Aziza [facility] ACTIVATED PARTIAL THRMPLAS DIDI 2022-11-23 11:12:00 Aziza [facility] ACTIVATED PARTIAL THRMPLAS DIDI 2022-11-23 02:28:00 Aziza [facility] ACTIVATED PARTIAL THRMPLAS DIDI 2022-11-23 02:28:00 Aziza [facility] PHOSPHORUS 2022-11-22 22:39:00 Dana Lewis [facility] MAGNESIUM 2022-11-22 22:39:00 Dana Lewis [facility] PHOSPHORUS 2022-11-22 22:39:00 Dana Lewis [facility] MAGNESIUM 2022-11-22 22:39:00 Lewis, Dana [facility] FL TIME OR (NON-REPORTABLE) 2022-11-22 19:14:00 Aziza [facility] FL TIME OR (NON-REPORTABLE) 2022-11-22 19:14:00 Lloyd Ervin [facility] INFUSION CATHETER REMOVAL 2022-11-22 17:26:00 Treasure Escobar [facility] INFUSION CATHETER REMOVAL 2022-11-22 17:26:00 Treasure Escobar [facility] FIBRINOGEN 2022-11-22 16:53:00 [facility] 2022-11-22 16:53:00 Marquez [facility] 2022-11-22 10:59:00 Marquez Lagos Uni [facility] MRSA / MSSA SCREEN BY PCR, NARES 2022-11-22 10:59:00 Marquez Lagos [facility] FIBRINOGEN 2022-11-22 10:59:00 Marquez Lagos [facility] MRSA / MSSA SCREEN BY PCR, NARES 2022-11-22 10:59:00 Marquez Lagos [facility] FIBRINOGEN 2022-11-22 08:28:00 Marquez Lagos Uni [facility] FIBRINOGEN 2022-11-22 08:28:00 Marquez [facility] 2022-11-22 08:27:00 Marquez Lagos Uni [facility] MAGNESIUM 2022-11-22 08:27:00 Marquez Lagos Uni [facility] BASIC METABOLIC PANEL (NA, K, CL, CO2, GLUCOSE, BUN, CREATININE, CA) 2022-11-22 08:27:00 Marquez Lagos [facility] CBC WITH DIFF 2022-11-22 08:27:00 Marquez [facility]os [facility] 2022-11-22 08:27:[address] [facility] MAGNESIUM 2022-11-22 08:27:00 Marquez Lagos [facility] BASIC METABOLIC PANEL (NA, K, CL, CO2, GLUCOSE, BUN, CREATININE, CA) 2022-11-22 08:27:00 Marquez Lagos [facility] CBC WITH DIFF 2022-11-22 08:27:00 Marquez [facility] TIME OR (NON-REPORTABLE) 2022-11-22 07:02:00 Marquez Lagos [facility] FL TIME OR (NON-REPORTABLE) 2022-11-22 07:02:00 Marquez Lagos [facility] ARTERIOGRAM 2022-11-22 05:27:00 Treasure Lugo [facility] ARTERIAL THROMBOLYSIS 2022-11-22 05:27:00 Treasure Larson [facility] HB ABO GROUPING 2022-11-22 02:08:00 [facility] HB ABO GROUPING 2022-11-22 02:08:00 Marquez Lagos [facility] BASIC METABOLIC PANEL (NA, K, CL, CO2, GLUCOSE, BUN, CREATININE, CA) 2022-11-21 22:46:00 Zachariah Self [facility] CBC WITH DIFF 2022-11-21 22:46:00 Zachariah Self [facility] PROTHROMBIN TIME / INR 2022-11-21 22:46:00 Naye Self [facility] ACTIVATED PARTIAL THRMPLAS DIDI 2022-11-21 22:46:00 Zachariah Self [facility] CONSENT/REFUSAL FOR DIAGNOSIS AND TREATMENT 2022-11-21 17:26:02 Doctor Unassigned, Register [facility] Minor level established patient office visit 2021-12-07 00:00:00 [facility] En[facility] Stat Only 2021-10-26 00:00:00 C [facility] Encounter Stat Only 2021-08-31 00:00:00 C [facility] Minor level established patient office visit 2021-08-01 00:00:00 [facility] Minor level established patient office visit 2021-07-08 00:00:00 [facility] X-ray of shoulder, two or more views 2021-07-08 00:00:00 [facility] Appendectomy [facility] Caesarean Section Blanca Ort [facility] En[facility] Start Date/Time End Date/Time Encounter Type Admission Type Attending [facility] Facility Care Department Encounter ID Source 2022-12-26 07:51:00 Inpatient ZIA HOOVER [id number] [facility] 2022-12-19 12:45:00 Inpatient ZIA HOOVER [facility] [id number] [facility] 2022-09-05 13:24:00 Inpatient ZIA HOOVER [id number] [facility] 2022-08-08 12:30:00 Inpatient BLANE GREER GINO DEMET[facility] [id number] 2022-06-12 13:01:00 Inpatient COSME MARIA DEMET[facility]A [id number] 2022-06-12 09:59:00 Inpatient COSME MARIA DEMET[facility] [id number] 2022-05-14 00:00:00 Inpatient ZIA HOOVER GINO DEMETRIA [id number] 2022-03-14 09:50:00 Inpatient ZIA HOOVER [facility] AUGUSTIN [id number] 2022-02-20 00:00:00 Inpatient BLANE ZHENG DEMETRIA AUGUSTIN [id number] 2021-10-13 12:30:00 Inpatient Blane Fu [facility] [id number] [id number] 2021-08-16 07:30:00 Inpatient Blane Fu [facility] [id number] [facility] 2023-08-10 08:08:12 2023-08-10 08:08:[address] [facility] [id number] Blane Cobian 2023-08-08 09:05:16 2023-08-08 23:59:00 Outpatient R SERGIO [facility] [id number] [facility] 2023-08-08 09:00:00 2023-08-08 23:59:00 Hospital Encounter Sergio Fisher [facility] [id number] [facility] 2023-08-07 00:00:00 2023-08-07 00:00:00 Carlos Ken MD: [id number] [place] [address] , Ph. [phone] FOG_Jesus Manuel_R samantha_ [facility] [place] [facility] [place] [id number] [facility] 2023-08-02 12:43:25 2023-08-02 23:59:00 Hospital Encounter [facility] [id number] [facility] 2023-08-02 12:43:09 2023-08-02 23:59:00 Hospital Encounter [facility] .[id number] [facility] 2023-08-02 16:00:00 2023-08-02 16:15:00 Office Visit [facility] [id number] [facility] 2023-08-02 12:42:54 2023-08-02 12:42:54 Outpatient R LISHA [facility] [id number] [facility] 2023-08-02 12:42:54 2023-08-02 12:42:54 Hospital Encounter Ri[facility] [id number] [facility] 2023-08-01 00:00:00 2023-08-01 00:00:00 Outpatient KOKI_Joana singh_ AOSM AOSM [id number] [facility] 2023-07-23 13:00:00 2023-07-23 13:00:00 Outpatient R LEOPOLDO FRASER [facility] [id number] [facility] 2023-07-05 14:30:00 2023-07-05 15:20:18 Outpatient R LISHA RITTER [facility] [id number] [facility] 2023-07-05 14:30:00 2023-07-05 15:20:18 Office Visit [facility] 1.840.114 350.1.13.10 4.2.7.2.686 [id number] [facility] 2023-06-26 00:00:00 2023-06-26 00:00:00 Orders Only Doctor Unassigned, Register [facility] 1..840.114 350.1.13.10 4.2.7.2.686 [id number] [id number] [facility] 2023-06-14 00:00:00 2023-06-14 00:00:00 Telephone [facility] 1.2.840.114 350.1.13.10 4.2.7.2.686 [id number] [facility] 2023-06-01 13:30:00 2023-06-01 13:30:00 Outpatient [facility]HA [facility] [id number] [facility] 2023-05-25 00:00:00 2023-05-25 00:00:00 Telephone [facility] 1.2840.114 350.1.13.10 4.2.7.2.686 [id number] [facility] 2023-05-24 14:30:00 2023-05-24 15:03:02 Outpatient LISHA ROLON [facility] [id number] [facility] 2023-05-24 14:30:00 2023-05-24 15:03:02 Office Visit Ri[facility] 1.2840.114 350.1.13.10 4.2.7.2.686 [id number] [facility] 2023-05-21 00:00:00 2023-05-21 00:00:00 Telephone [facility] 1.2840.114 350.1.13.10 4.2.7.2.686 [id number] [facility] 2023-05-19 08:54:00 2023-05-19 13:17:00 Emergency X ROSELINE MCMAHON [facility] ERT [id number] [facility] 2023-05-19 08:54:00 2023-05-19 13:17:00 Emergency Roseline Mcmahon [facility] 1.2.840.114 350.1.13.10 4.2.7.2.686 [id number] [facility] 2023-05-10 14:00:00 2023-05-10 14:15:00 Office Visit Riya [facility] 1.2.840.114 350.1.13.10 4.2.7.2.686 [id number] [facility] 2023-05-10 14:00:00 2023-05-10 14:00:00 Outpatient R LISHA R[facility]TER [facility] [id number] [facility] 2023-05-10 00:00:00 2023-05-10 00:00:00 Telephone [facility] 1.2.840.114 350.1.13.10 4.2.7.2.686 [id number] [facility] 2023-05-04 00:00:00 2023-05-04 00:00:00 Telephone [facility] 1.2.840.114 350.1.13.10 4.2.7.2.686 [id number] [facility] 2023-05-02 00:00:00 2023-05-02 00:00:00 Telephone [facility] 1.2.840.114 350.1.13.10 4.2.7.2.686 [id number] [facility] 2023-04-25 00:00:00 2023-04-25 00:00:00 Transition of Care Melissa Manrique 1.2.840.114 350.1.13.10 4.2.7.2.686 [id number] [facility] 2023-04-25 00:00:00 2023-04-25 00:00:00 Orders Only Doctor Unassigned, Register [facility] 1.2840.114 350.1.13.10 4.2.7.2.686 [id number] [id number] [facility] 2023-04-17 17:35:00 2023-04-24 17:16:00 Inpatient U LISHA RITTER [facility] [id number] [facility] 2023-04-17 17:35:00 2023-04-24 17:16:00 Hospital Encounter [facility] Lisha [facility] 1.2840.114 350.1.13.10 4.2.7.2.686 [id number] [facility] 2023-04-19 15:45:00 2023-04-19 15:45:00 Outpatient R LISHA RITTER [facility] [id number] [facility] 2023-04-19 07:30:00 2023-04-19 10:07:00 [facility] 1.840.114 350.1.13.10 4.2.7.2.686 [id number] [facility] 2023-04-17 13:30:00 2023-04-17 13:45:00 Office Visit Lisha Ritter [facility] 1.0.114 350.1.13.10 4.2.7.2.686 [id number] [facility] 2023-04-16 09:40:00 2023-04-16 10:00:00 Urgent Care Freda Palma Unknown, Attending [facility] 1..114 350.1.13.10 4.2.7.2.686 [id number] [facility] 2023-04-16 09:40:00 2023-04-16 09:40:00 Outpatient R FREDA PALMA [facility] [id number] [facility] 2023-04-16 00:00:00 2023-04-16 00:00:00 Telephone [facility] 1.2.840.114 350.1.13.10 4.2.7.2.686 [id number] [facility] 2023-04-16 00:00:00 2023-04-16 00:00:00 Telephone [facility] 1.2.840.114 350.1.13.10 4.2.7.2.686 [id number] [facility] 2023-04-11 00:00:00 2023-04-11 00:00:00 Transition of Care Melissa Manrique 1.2.840.114 350.1.13.10 4.2.7.2.686 [id number] [facility] 2023-04-02 09:21:00 2023-04-09 12:07:00 Hospital Encounter Treasure Lugo [facility] 1.2.840.114 350.1.13.10 4.2.7.2.686 [id number] [facility] 2023-04-02 14:34:00 2023-04-02 23:39:00 Anesthesia Event Fab Vergara Beth M [facility] 1.2.840.114 350.1.13.10 4.2.7.2.686 [id number] [facility] 2023-04-02 11:41:00 2023-04-02 17:05:00 Surgery [facility] 1.2.840.114 350.1.13.10 4.2.7.2.686 [id number] [facility] 2023-04-02 06:00:00 2023-04-02 08:05:00 Emergency X LARRY ZAMORA [facility] ERT [id number] [facility] 2023-04-02 06:00:00 2023-04-02 08:05:00 Emergency X LARRY ZAMORA [facility] ERT [id number] [facility] 2023-04-02 06:00:00 2023-04-02 08:05:00 Emergency Larry Zamora [facility] 1.2.840.114 350.1.13.10 4.2.7.2.686 [id number] [facility] 2023-03-21 08:57:11 2023-03-21 08:57:11 Outpatient SFA SFA [id number] Blane Cobian 2023-03-02 10:13:19 2023-03-02 10:13:19 Outpatient SFA SFA [id number] Blane Cobian 2023-02-13 10:07:00 2023-02-13 15:44:00 Emergency HEATHER DELGADO [facility] ERT [id number] [facility] 2023-02-13 10:07:00 2023-02-13 15:44:00 Emergency Heather Randall [facility] 1.2.840.114 350.1.13.10 4.2.7.2.686 [id number] [facility] 2023-02-12 15:12:14 2023-02-12 15:12:14 Outpatient SFA SFA [id number] Blane Cobian 2023-02-10 11:07:00 2023-02-10 16:50:00 Emergency X Yomaira RENEE [facility] ERT [id number] [facility] 2023-02-10 11:07:00 2023-02-10 16:50:00 Emergency Yomaira Renee Gina [facility] 1.2.840.114 350.1.13.10 4.2.7.2.686 [id number] [facility] 2023-02-09 09:04:45 2023-02-09 09:04:[address] [facility] [id number] Blane Cobian 2023-01-24 00:00:00 2023-01-24 00:00:00 Orders Only Doctor Unassigned, Register [facility] 1..114 350.1.13.10 4.2.7.2.686 [id number] [facility] 2023-01-22 13:30:00 2023-01-22 14:48:06 Outpatient R LEOPOLDO FRASER [facility] [id number] [facility] 2023-01-22 13:30:00 2023-01-22 14:48:06 Office Visit Leopoldo Fraser [facility] 1.84.114 350.1.13.10 4.2.7.2.686 [id number] [facility] 2023-01-08 13:15:00 2023-01-08 13:15:00 Outpatient R LEOPOLDO FRASER [facility] [id number] [facility] 2023-01-04 12:46:49 2023-01-04 23:59:00 Outpatient R LEOPOLDO FRASER [facility] [id number] [facility] 2023-01-04 12:46:49 2023-01-04 23:59:00 Hospital Encounter Leopoldo Fraser [facility] 1..114 350.1.13.10 4.2.7.2.686 [id number] [facility] 2023-01-02 12:57:08 2023-01-02 23:59:00 Outpatient R LEOPOLDO FRASER [facility] [id number] [facility] 2023-01-02 12:57:08 2023-01-02 23:59:00 Hospital Encounter Leopoldo Fraser [facility] ..114 350.1.13.10 4.2.7.2.686 [id number] [facility] 2022-12-26 00:00:00 2022-12-26 00:00:00 Telephone Leopoldo Fraser [facility] 1.2.840.114 350.1.13.10 4.2.7.2.686 [id number] [facility] 2022-12-25 15:15:00 2022-12-25 16:08:53 Outpatient R LEOPOLDO FRASER [facility] [id number] [facility] 2022-12-25 15:15:00 2022-12-25 16:08:53 Office Visit Leopoldo Fraser [facility] 1.2.840.114 350.1.13.10 4.2.7.2.686 [id number] [facility] 2022-12-22 00:00:00 2022-12-22 00:00:00 Telephone Leopoldo Fraser [facility] 1.2.840.114 350.1.13.10 4.2.7.2.686 [id number] [facility] 2022-12-04 16:00:00 2022-12-04 16:40:32 Outpatient R LEOPOLDO FRASER LEOPOLDO FRASER [facility] [id number] [facility] 2022-12-04 16:00:00 2022-12-04 16:40:32 Office Visit Leopoldo Fraser [facility] 1.2.840.114 350.1.13.10 4.2.7.2.686 [id number] [facility] 2022-12-04 00:00:00 2022-12-04 00:00:00 Orders Only Doctor Unassigned, Register [facility] 1.2840.114 350.1.13.10 4.2.7.2.686 [id number] [facility] 2022-11-24 00:00:00 2022-11-24 00:00:00 Transition of Care Erin Newman 1.2.840.114 350.1.13.10 4.2.7.2.686 [id number] [facility] 2022-11-21 20:02:00 2022-11-23 14:30:00 Hospital Encounter [facility] 1.2840.114 350.1.13.10 4.2.7.2.686 [id number] [facility] 2022-11-21 20:02:00 2022-11-23 14:30:00 [facility] [id number] [facility] 2022-11-22 12:00:00 2022-11-22 14:16:00 Surgery [facility] 1.2.840.114 350.1.13.10 4.2.7.2.686 [id number] [facility] 2022-11-21 12:32:00 2022-11-21 18:50:00 Emergency X ZACHARIAH SELF [facility] ERT [id number] [facility] 2022-11-21 12:32:00 2022-11-21 18:50:00 Emergency Zachariah Self S [facility] 1.2.840.114 350.1.13.10 4.2.7.2.686 [id number] [facility] 2022-10-24 13:17:00 2022-11-10 23:59:00 ambulatory [id number] 2022-10-24 13:17:00 2022-11-10 00:01:00 Outpatient ZIA HOOVER [facility] CHRTEL [id number] [facility] 2022-10-24 13:30:00 2022-10-24 13:30:00 Outpatient ZHENG AVENDANO GINO GINO [id number] 2022-08-13 11:56:00 2022-09-10 00:01:00 Outpatient COSME MARIA CHRTEL CHRTEL [id number] [facility] 2022-08-08 00:00:00 2022-08-11 00:01:00 [facility] [id number] [facility] 2022-08-08 12:42:00 2022-08-08 12:42:00 [facility] [id number] [facility] 2022-08-07 15:17:00 2022-08-07 15:17:00 Outpatient BLANE GREERTEL CHRTEL [id number] [facility] 2022-08-04 12:22:00 2022-08-04 12:22:00 Outpatient JUDE GREERMALIA AUGUSTIN [id number] 2022-08-04 12:22:00 2022-08-04 12:22:00 Outpatient BLANE GREERTEL CHRTEL [id number] [facility] 2022-07-31 15:56:00 2022-07-31 15:56:00 Outpatient BLANE GREER GINO [id number] 2022-07-31 15:56:00 2022-07-31 15:56:00 Outpatient EL STUARTENDBLANE LAURENTEL [facility] [id number] [facility] 2022-07-25 14:58:00 2022-07-25 14:58:00 Outpatient BLANE GREER DEMETRIA [id number] 2022-07-25 14:58:00 2022-07-25 14:58:00 Outpatient BLANE GREER DEMETRIA [id number] 2022-07-12 20:34:00 2022-07-15 13:00:00 Inpatient ER WILMER [facility] [id number] 2022-07-11 13:12:00 2022-07-11 13:12:00 Outpatient ASHIA LAMAS [id number] 2022-07-11 13:44:00 2022-07-11 00:01:00 Outpatient ZIA HOOVER [facility] [id number] 2022-07-07 00:00:00 2022-07-07 00:00:00 Outpatient BRANDY_BRENDA [facility] [id number] [facility] 2022-06-29 10:51:00 2022-06-29 10:51:00 Outpatient BLANE GREER DEMETRIA AUGUSTIN [id number] 2022-06-08 23:17:00 2022-06-16 14:45:00 Inpatient ER SHASTA GUILLENQAR [facility] [id number] 2022-05-23 13:59:00 2022-06-13 00:01:00 Outpatient ZIA HOOVER [facility] [id number] 2022-06-01 18:01:00 2022-06-01 22:50:00 Emergency ER HANS ANDERSONUS [id number] 2022-05-23 13:18:00 2022-05-23 13:18:00 Outpatient ASHIA LAMAS [id number] 2022-05-16 07:51:00 2022-05-16 11:04:00 Emergency ER HANS ANDERSONUS [id number] 2022-04-19 15:07:00 2022-05-13 00:01:00 Outpatient ZIA HOOVERUS [id number] 2022-04-19 13:48:00 2022-04-19 13:48:00 Outpatient ASHIA LAMASUS [id number] 2022-03-28 15:36:00 2022-04-12 00:01:00 Outpatient ZIA HOOVERUS [id number] 2022-03-28 13:46:00 2022-03-28 13:46:00 Outpatient ASHIA LAMASUS [id number] 2022-01-26 13:58:00 2022-02-10 00:01:00 Outpatient ZIA HOOVERUS [id number] 2022-01-17 09:59:00 2022-02-10 00:01:00 Outpatient ZIA HOOVERUS [id number] 2022-01-26 13:52:00 2022-01-26 13:52:00 Outpatient ASHIA LAMASUS [id number] 2022-01-17 09:43:00 2022-01-17 09:43:00 Outpatient ASHIA LAMASUS [id number] 2021-12-27 13:28:00 2022-01-11 00:01:00 Outpatient BLANE ZHENG [facility] [id number] 2021-12-20 10:54:00 2022-01-11 00:01:00 Outpatient ZIA HOOVERUS [id number] 2021-12-27 13:28:00 2021-12-27 13:28:00 Outpatient BLANE ZHENG [id number] 2021-12-20 10:54:00 2021-12-20 10:54:00 Outpatient ZIA HOOVER [id number] 2021-12-20 09:57:00 2021-12-20 09:57:00 Outpatient ZIA EMMANUEL [id number] 2021-12-07 11:36:00 2021-12-11 00:01:00 Discharged Recurring BLANE ZHENG [id number] 2021-11-18 14:45:00 2021-11-18 15:00:00 Laboratory Only Only, [facility]ria [facility] 1.2.840.114 350.1.13.10 4.2.7.2.686 [id number] [facility] 2021-11-18 14:45:00 2021-11-18 14:45:00 Outpatient NURIS MURRAY [facility] [id number] [facility] 2021-11-18 00:00:00 2021-11-18 00:00:00 Letter (Out) Doctor Unassigned, Register [facility] 12.840.114 350.1.13.10 4.2.7.2.686 [id number] [facility] 2021-10-26 14:03:00 2021-11-10 00:01:00 Discharged Recurring BLANE ZHENG [id number] 2021-10-11 10:46:00 2021-10-11 10:46:00 Outpatient MCSETXm [facility] [id number] [facility] 2021-10-11 10:46:00 2021-10-11 10:46:00 Outpatient Elective Blane Fu [facility] [id number] [facility] 2021-09-30 08:15:00 2021-10-11 00:01:00 Outpatient BLANE ZHENG [id number] 2021-09-19 14:07:00 2021-10-11 00:01:00 Outpatient BLANE ZHENG [id number] 2021-09-12 09:18:00 2021-10-11 00:01:00 Outpatient BLANE ZHENG [id number] 2021-09-08 10:30:00 2021-09-10 00:01:00 Discharged Recurring BLANE ZHENG [id number] 2021-08-31 11:05:00 2021-09-10 00:01:00 Discharged Recurring BLANE ZHENG [id number] 2021-08-11 08:27:00 2021-08-11 08:27:00 Outpatient MCSETXm MCSET[facility] [id number] [facility] 2021-08-11 08:27:00 2021-08-11 08:27:00 Outpatient Elective Blane FuETXm [id number] [facility] 2021-08-01 10:57:00 2021-08-11 00:01:00 Discharged Recurring BLANE ZHENG [id number] 2021-07-08 08:46:00 2021-07-11 00:01:00 Discharged Recurring BLANE ZHENG [id number] 2020-03-15 16:16:00 2020-03-15 18:24:00 Departed Emergency Room DEMETRIA CHRISTIAN [id number] Results Test Description Test Time Test Comments Results Result Co mments Source [facility]. METABOLIC PANEL (44513)2023-05-19 16:11:56* Test Item Value Reference Range Interpretation Comme nts NA (test code = 8350042910) 143 mmol/L 135-145 K (test code = 9318805921) 3.1 mmol/L 3.5-5.0 L CL (test code = 6542678055) 109 mmol/L 98-108 H CO2 TOTAL (test code = 3104741975) 15 mmol/L 23-31 L AGAP (test code = 2660539792) 19 2-16 H BUN (test code = 1930962705) 11 mg/dL 7-23 GLUCOSE (test code = 3279141157) 110 mg/dL 70-110 CREATININE (test code = 4913693985) 0.80 mg/dL 0.50-1.04 TOTAL BILI (test code = 6660000889) 0.3 mg/dL 0.1-1.1 CALCIUM (test code = 1462974783) 8.8 mg/dL 8.6-10.6 T PROTEIN (test code = 7447476030) 8.1 g/dL 6.3-8.2 ALBUMIN (test code = 5138132710) 4.3 g/dL 3.5-5.0 ALK PHOS (test code = 0332064381) 122 U/L 34-122 ALTv (test code = 1742-6) 30 U/L 5-35 AST(SGOT) (test code = 8405670804) 70 U/L 13-40 H eGFR (test code = 35144-7) 90.5 mL/min/1.73m2 CKD-EPI eGFR (2020). Assuming creatinine has been stable day-to-day for at least three months, the eGFR indicates Category G1 (>= 90 mL/min/1.73 m2) Lab Interpretation (test code = 87713-3) Abnormal [facility] WITH [id number] 15:14:16* Test Item Value Reference Range Interpretation Comme nts WBC (test code = 6690-2) 6.88 See_Comment [Automated messa [employer]] The system which generated this result transmitted reference range: 4.30 - 11.10 10*3/?L. The reference range was not used to interpret this result as normal/abnormal. RBC (test code = 789-8) 3.89 See_Comment L [Automated messa ge] The system which generated this result transmitted reference range: 3.93 - 5.25 10*6/?L. The reference range was not used to interpret this result as normal/abnormal. HGB (test code = 718-7) 12.4 g/dL 11.6-15.0 HCT (test code = 4544-3) 36.7 % 35.7-45.2 MCV (test code = 787-2) 94.3 fL 80.6-95.5 MCH (test code = 785-6) 31.9 pg 25.9-32.8 MCHC (test code = 786-4) 33.8 g/dL 31.6-35.1 RDW-SD (test code = 98309-2) 56.8 fL 39.0-49.9 H RDW-CV (test code = 788-0) 16.6 % 12.0-15.5 H PLT (test code = 777-3) 458 See_Comment H [Automated messa ge] The system which generated this result transmitted reference range: 166 - 358 10*3/?L. The reference range was not used to interpret this result as normal/abnormal. MPV (test code = 97636-5) 9.1 fL 9.5-12.9 L NRBC/100 WBC (test code = 2306126851) 0.0 See_Comment [Automated [employer]] The system which generated this result transmitted reference range: 0.0 - 10.0 /100 WBCs. The reference range was not used to interpret this result as normal/abnormal. NRBC x10^3 (test code = 2660278272) See_Comment [Automated messa ge] The system which generated this result transmitted reference range: 10*3/?L. The reference range was not used to interpret this result as normal/abnormal. GRAN MAT (NEUT) % (test code = 770-8) 53.1 % IMM GRAN % (test code = 2519119106) 0.10 % LYMPH % (test code = 736-9) 35.9 % MONO % (test code = 5905-5) 6.1 % EOS % (test code = 713-8) 3.3 % BASO % (test code = 706-2) 1.5 % GRAN MAT x10^3(ANC) (test code = 6099967693) 3.65 10*3/uL 1.88-7.09 IMM GRAN x10^3 (test code = 9562404246) 0.00-0.06 LYMPH x10^3 (test code = 731-0) 2.47 10*3/uL 1.32-3.29 MONO x10^3 (test code = 742-7) 0.42 10*3/uL 0.33-0.92 EOS x10^3 (test code = 711-2) 0.23 10*3/uL 0.03-0.39 BASO x10^3 (test code = 704-7) 0.10 10*3/uL 0.01-0.07 H Lab Interpretation (test code = 37075-3) Abnormal [facility] GLUCOSE (AUTOMATED)2023-04-22 14:12:39* Test Item Value Reference Range Interpretation Comme [facility] POCT GLU (test code = 8852104775) 119 mg/dL 70-110 H Lab Interpretation (test cod e = 38009-0) [facility]2023-04-20 21:58:26* Test Item Value Reference Range Interpretation Comme [facility] APTT Patient (test code = 3173-2) 39 See_Comment H [Automated [employer] ge] The system which generated this result transmitted reference range: 26 - 36 Seconds. The reference range was not used to interpret this result as normal/abnormal. Lab Interpretation (test code = 46047-6) Abnormal [facility] SARS-COV-2 ANTIGEN (BINAX NOW)2023-04-16 16:08:00* Test Item Value Reference Range Interpretation Comme [facility] POCT SARS-COV-2 ANTIGEN (shira t code = 42716-9) Not Detected Not Detected On board controls acceptable with C Line (test code = 3574) Yes [facility] MOLECULAR [id number] 16:03:56* Test Item Value Reference Range Interpretation Comme nts POCT Molecular FluA (test co de = 33405-8) Negative Negative POCT Molecular FluB (test co de = 22049-9) Negative Negative Lab Interpretation (test cod e = 08639-3) [facility]GLU[facility]CA2+2023-04-06 01:28:55* Test Item Value Reference Range Interpretation Comme nts PH (test code = 3844520543) 7.40 7.32-7.42 PCO2 ILSA (test code = 8457000349) 35 See_Comment L [Automated messa ge] The system which generated this result transmitted reference range: 41 - 51 mmHg. The reference range was not used to interpret this result as normal/abnormal. PO2 ILSA (test code = 8912023429) 261 See_Comment HH [Automated messa ge] The system which generated this result transmitted reference range: 25 - 40 mmHg. The reference range was not used to interpret this result as normal/abnormal. HCO3 ILSA (test code = 6399596435) 21 See_Comment L [Automated messa ge] The system which generated this result transmitted reference range: 24 - 28 mEq/L. The reference range was not used to interpret this result as normal/abnormal. AC VBE(BEAKER) (test code = 4091336644) -3.5 mEq/L THB ILSA (test code = 1890888090) 9.9 g/dL 12.0-16.0 L %O2HB ILSA (test code = 0850067177) 98.1 % 52.0-63.0 H %COHB ILSA (test code = 8417730738) 0.8 % 0.0-1.5 %METHB ILSA (test code = 7971360862) 0.3 % 0.4-1.5 L VOL%O2 ILSA (test code = 2977317679) 14.3 % 6.0-12.0 H QUES NA (test code = 7644687476) 136 mmol/L 135-145 K+ (test code = 0921121931) 4.4 mmol/L 3.5-5.0 AC CA IONZ (test code = 9314329458) 4.40 mg/dL 4.50-5.30 L GLUCOSE (test code = 8044509939) 140 mg/dL 70-110 H Lab Interpretation (test code = 70839-7) Abnormal [facility] METABOLIC PANEL (NA, K, CL, CO2, GLUCOSE, BUN, CREATININE, CA)2023-04-05 13:03:38* Test Item Value Reference Range Interpretation Comme nts NA (test code = 6604198642) 136 mmol/L 135-145 K (test code = 2517066263) 3.8 mmol/L 3.5-5.0 Slight hemolysis CL (test code = 7267900475) 108 mmol/L 98-108 CO2 TOTAL (test code = 4018979417) 25 mmol/L 23-31 AGAP (test code = 6359463488) 3 2-16 BUN (test code = 7794797126) 11 mg/dL 7-23 Slight hemolysis GLUCOSE (test code = 5647590489) 82 mg/dL 70-110 CREATININE (test code = 5474651478) 0.64 mg/dL 0.50-1.04 CALCIUM (test code = 7550909767) 7.5 mg/dL 8.6-10.6 L eGFR (test code = 39896-6) 109.2 mL/min/1.73m2 CKD-EPI eGFR (2020). Assuming creatinine has been stable day-to-day for at least three months, the eGFR indicates Category G1 (>= 90 mL/min/1.73 m2) Lab Interpretation (test code = 79857-9) [facility]:02:17* Test Item Value Reference Range Interpretation Comme nts MAGNESIUM (test code = 6782369135) 1.8 mg/dL 1.7-2.4 Lab Interpretation (test cod e = 38224-7) [facility] 13:02:17* Test Item Value Reference Range Interpretation Comme nts PHOSPHORUS (test code = 2829864846) 3.3 mg/dL 2.5-5.0 Lab Interpretation (test cod e = 74556-5) Normal [facility] (for use with Heparin Infusion)2023-04-05 12:45:15* Test Item Value Reference Range Interpretation Comme nts APTT Patient (test code = 3173-2) 45 See_Comment H [Automated [employer] ge] The system which generated this result transmitted reference range: 26 - 36 Seconds. The reference range was not used to interpret this result as normal/abnormal. Lab Interpretation (test code = 52994-2) Abnormal [facility]CB WITH [id number] 12:38:56* Test Item Value Reference Range Interpretation Comme nts WBC (test code = 6690-2) 11.66 See_Comment H [Automated messa ge] The system which generated this result transmitted reference range: 4.30 - 11.10 10*3/?L. The reference range was not used to interpret this result as normal/abnormal. RBC (test code = 789-8) 2.38 See_Comment L [Automated messa ge] The system which generated this result transmitted reference range: 3.93 - 5.25 10*6/?L. The reference range was not used to interpret this result as normal/abnormal. HGB (test code = 718-7) 7.6 g/dL 11.6-15.0 L HCT (test code = 4544-3) 23.0 % 35.7-45.2 L MCV (test code = 787-2) 96.6 fL 80.6-95.5 H MCH (test code = 785-6) 31.9 pg 25.9-32.8 MCHC (test code = 786-4) 33.0 g/dL 31.6-35.1 RDW-SD (test code = 98138-9) 71.4 fL 39.0-49.9 H RDW-CV (test code = 788-0) 19.9 % 12.0-15.5 H PLT (test code = 777-3) 176 See_Comment [Automated messa ge] The system which generated this result transmitted reference range: 166 - 358 10*3/?L. The reference range was not used to interpret this result as normal/abnormal. MPV (test code = 99280-9) 10.6 fL 9.5-12.9 NRBC/100 WBC (test code = 8996434311) 0.3 See_Comment [Automated me ssage] The system which generated this result transmitted reference range: 0.0 - 10.0 /100 WBCs. The reference range was not used to interpret this result as normal/abnormal. NRBC x10^3 (test code = 6973414017) 0.04 See_Comment [Automated messa ge] The system which generated this result transmitted reference range: 10*3/?L. The reference range was not used to interpret this result as normal/abnormal. GRAN MAT (NEUT) % (test code = 770-8) 59.9 % IMM GRAN % (test code = 9151032177) 0.90 % LYMPH % (test code = 736-9) 30.4 % MONO % (test code = 5905-5) 5.1 % EOS % (test code = 713-8) 3.4 % BASO % (test code = 706-2) 0.3 % GRAN MAT x10^3(ANC) (test code = 0756232717) 6.99 10*3/uL 1.88-7.09 IMM GRAN x10^3 (test code = 2640992682) 0.10 10*3/uL 0.00-0.06 H LYMPH x10^3 (test code = 731-0) 3.54 10*3/uL 1.32-3.29 H MONO x10^3 (test code = 742-7) 0.59 10*3/uL 0.33-0.92 EOS x10^3 (test code = 711-2) 0.40 10*3/uL 0.03-0.39 H BASO x10^3 (test code = 704-7) 0.04 10*3/uL 0.01-0.07 Lab Interpretation (test code = 24114-9) Abnormal [facility] (for use with Heparin Infusion)2023-04-05 06:09:53* Test Item Value Reference Range Interpretation Comme [facility] APTT Patient (test code = 3173-2) 52 See_Comment H [Automated messa ge] The system which generated this result transmitted reference range: 26 - 36 Seconds. The reference range was not used to interpret this result as normal/abnormal. Lab Interpretation (test code = 11223-8) Abnormal [facility] (for use with Heparin Infusion)2023-04-04 23:29:00* Test Item Value Reference Range Interpretation Comme [facility] APTT Patient (test code = 3173-2) 45 See_Comment H [Automated messa ge] The system which generated this result transmitted reference range: 26 - 36 Seconds. The reference range was not used to interpret this result as normal/abnormal. Lab Interpretation (test code = 86018-9) [facility] 1 Units 2023-04-04 14:29:41* Test Item Value Reference Range Interpretation Comme nts Cross Match Result (test code = 4409) Compatible ISBT Blood Type Code (test code = 415550) 5100 Unit Blood Type (test code = 4410) O Pos Unit Number (test code = 4411) [id number] Blood Expiration Date & Time (test code = 738610) [id number] Status Information (test code = 4412) Issued Product Identification (test code = 4413) Red Blood Cells Product Code (test code = 4414) [id number] Performed at [facility] Laboratory Services [facility] Blood [address] [address]Wxsx Free: [phone] No. [id number] [facility] METABOLIC PANEL (NA, K, CL, CO2, GLUCOSE, BUN, CREATININE, CA)2023-04-04 13:17:10* Test Item Value Reference Range Interpretation Comme nts NA (test code = 2206681587) 136 mmol/L 135-145 K (test code = 4116459392) 3.0 mmol/L 3.5-5.0 L CL (test code = 7098772867) 108 mmol/L 98-108 CO2 TOTAL (test code = 8582227257) 27 mmol/L 23-31 AGAP (test code = 2862759811) 1 2-16 L BUN (test code = 6521726406) 12 mg/dL 7-23 GLUCOSE (test code = 9673096350) 96 mg/dL 70-110 CREATININE (test code = 6188476557) 0.72 mg/dL 0.50-1.04 CALCIUM (test code = 1914626105) 7.1 mg/dL 8.6-10.6 L eGFR (test code = 74992-6) 103.3 mL/min/1.73m2 CKD-EPI eGFR (2020). Assuming creatinine has been stable day-to-day for at least three months, the eGFR indicates Category G1 (>= 90 mL/min/1.73 m2) Lab Interpretation (test code = 68730-9) [facility] 12:36:48* Test Item Value Reference Range Interpretation Comme nts MAGNESIUM (test code = 5430878233) 1.6 mg/dL 1.7-2.4 L Lab Interpretation (test cod e = 28797-0) [facility] 12:36:48* Test Item Value Reference Range Interpretation Comme nts PHOSPHORUS (test code = 6557854390) 2.7 mg/dL 2.5-5.0 Lab Interpretation (test cod e = 53552-1) Normal [facility] [id number] 12:12:44* Test Item Value Reference Range Interpretation Comme nts WBC (test code = 6690-2) 11.84 See_Comment H [Automated messa ge] The system which generated this result transmitted reference range: 4.30 - 11.10 10*3/?L. The reference range was not used to interpret this result as normal/abnormal. RBC (test code = 789-8) 2.10 See_Comment L [Automated messa ge] The system which generated this result transmitted reference range: 3.93 - 5.25 10*6/?L. The reference range was not used to interpret this result as normal/abnormal. HGB (test code = 718-7) 6.9 g/dL 11.6-15.0 L HCT (test code = 4544-3) 21.6 % 35.7-45.2 L MCV (test code = 787-2) 102.9 fL 80.6-95.5 H MCH (test code = 785-6) 32.9 pg 25.9-32.8 H MCHC (test code = 786-4) 31.9 g/dL 31.6-35.1 RDW-SD (test code = 26318-3) 50.0 fL 39.0-49.9 H RDW-CV (test code = 788-0) 13.6 % 12.0-15.5 PLT (test code = 777-3) 181 See_Comment [Automated messa ge] The system which generated this result transmitted reference range: 166 - 358 10*3/?L. The reference range was not used to interpret this result as normal/abnormal. MPV (test code = 31880-5) 10.8 fL 9.5-12.9 NRBC/100 WBC (test code = 8700610182) 0.2 See_Comment [Automated me ssage] The system which generated this result transmitted reference range: 0.0 - 10.0 /100 WBCs. The reference range was not used to interpret this result as normal/abnormal. NRBC x10^3 (test code = 0754388021) 0.02 See_Comment [Automated messa ge] The system which generated this result transmitted reference range: 10*3/?L. The reference range was not used to interpret this result as normal/abnormal. GRAN MAT (NEUT) % (test code = 770-8) 59.9 % IMM GRAN % (test code = 9406940087) 0.30 % LYMPH % (test code = 736-9) 33.4 % MONO % (test code = 5905-5) 4.8 % EOS % (test code = 713-8) 1.4 % BASO % (test code = 706-2) 0.2 % GRAN MAT x10^3(ANC) (test code = 5941999745) 7.09 10*3/uL 1.88-7.09 IMM GRAN x10^3 (test code = 7617748157) 0.04 10*3/uL 0.00-0.06 LYMPH x10^3 (test code = 731-0) 3.96 10*3/uL 1.32-3.29 H MONO x10^3 (test code = 742-7) 0.57 10*3/uL 0.33-0.92 EOS x10^3 (test code = 711-2) 0.16 10*3/uL 0.03-0.39 BASO x10^3 (test code = 704-7) 0.01-0.07 Lab Interpretation (test code = 41938-5) Abnormal [facility] (for use with Heparin Infusion)2023-04-04 11:56:23* Test Item Value Reference Range Interpretation Comme nts APTT Patient (test code = 3173-2) 64 See_Comment H [Automated messa ge] The system which generated this result transmitted reference range: 26 - 36 Seconds. The reference range was not used to interpret this result as normal/abnormal. Lab Interpretation (test code = 60518-3) Abnormal [facility] (for use with Heparin Infusion)2023-04-04 04:24:42* Test Item Value Reference Range Interpretation Comme [facility] APTT Patient (test code = 3173-2) 54 See_Comment H [Automated [employer]] The system which generated this result transmitted reference range: 26 - 36 Seconds. The reference range was not used to interpret this result as normal/abnormal. Lab Interpretation (test code = 19912-1) [facility]normal [facility]23-[facility] 22:53:35* Test Item Value Reference Range Interpretation Comme nts Height (test code = 8133211848) 67 in Weight (test code = 5808038734) 221 lbs Systolic BP (test code = 1295369241) 151 mmHg Diastolic BP (test code = 4631315483) 75 mmHg Heart Rate (test code = 7484138420) 76 bpm BSA (test code = 0716598347) 2.11 m2 LVOT diameter (test code = 1905510035) 1.95 cm LVOT area (test code = 1222725542) 3.00 cm2 Ao root diam (test code = 4911393879) 2.80 cm Aortic root (test code = 0892785702) 2.8 cm Ao root annulus (test code = 8172704969) 2.8 cm LA size (test code = 7462418020) 2.8 cm E wave decelartion time (test code = 0110631657) 0.25 s MV Peak E Jagjit (test code = 9204590859) 129.6 cm/s MV Peak A Jagjit (test code = 0841726309) 124.7 cm/s E/A ratio (test code = 7108298297) 1.04 ratio MV Prop V (test code = 8509030812) 105.50 cm/s LAV(MOD-sp4) (test code = 0165635227) 58.50 mL Tapse (test code = 5939843679) 2.43 cm LVOT stroke volume (test code = 1603038157) 97.60 cm3 LVOT peak jagjit (test code = 8602205491) 154.8 cm/s LVOT mn grad (test code = 6813136557) 4.6 mmHg AV LVOT peak gradient (test code = 3777530922) 9.6 mmHg LVOT peak VTI (test code = 5993450141) 32.8 cm LV V1 mean (test code = 2687304420) 100.10 cm/s LA Volume Index (BP) (test code = 5555273412) 32.6 mL/m2 LA volume (BP) (test code = 7456623912) 68.7 mL LAV(MOD-sp2) (test code = 7271029293) 62.50 mL LVIDD (test code = 5525557342) 4.20 cm Left Ventricular End Diastolic Volume by Teichholz Method (test code = 5733257) 78.9 mL IVS (test code = 3279192570) 0.52 cm Interventricular Septum Diastolic Thickness by 2D (test code = 7398452) 0.52 cm LVPWD (test code = 7363144407) 0.75 cm PW (test code = 0537431618) 0.75 cm 0.6-1.1 EF(Teich) (test code = 8755990712) 63.10 % LVIDS (test code = 4313222666) 2.80 cm Left Ventricular End Systolic Volume by Teichholz Method (test code = 8417136) 29.1 mL FS (test code = 2067811386) 34 % EF - 2D (test code = 78361695) 63.10 % Radiology Study observation (narrative) (test code = 31327-5) COLLIN (test code = COLLIN) ?Left?Ventricle: Left ventricle size is normal. Increased wall thickness. Ventricular mass is normal. There is concentric remodeling. Septal motion is normal. Normal wall motion. Hyperdynamic systolic function with a visually estimated EF of greater than 65%. Diastolic dysfunction. Indeterminate left ventricular filling pressure. ?Right?Ventricle: Right ventricle size is normal. Normal wall thickness. Normal systolic function. ?Left?Atrium: Left atrium size is normal. Left atrium volume index is 32.6 mL/m2. ?Mitral?Valve: Mitral valve structure is normal. ?Tricuspid?Valve: Tricuspid valve structure is normal. Trace transvalvular regurgitation. Insufficient tricuspid regurgitation jet to estimate RVSP . Left VentricleLeft ventricle size is normal. Increased wall thickness. Ventricular mass is normal. There is concentric remodeling. Septal motion is normal. Normal wall motion. Hyperdynamic systolic function with a visually estimated EF of greater than 65%. Diastolic dysfunction. Indeterminate left ventricular filling pressure.Right VentricleRight ventricle size is normal. Normal wall thickness. Normal systolic function.Left AtriumLeft atrium size is normal. Left atrium volume index is 32.6 mL/m2.Right AtriumRight atrium size is normal.IVC/SVCIVC diameter is less than or equal to 21 mm and decreases less than 50% during inspiration; therefore the estimated right atrial pressure is intermediate (~8 mmHg).Mitral ValveMitral valve structure is normal. No transvalvular regurgitation. No stenosis.Tricuspid ValveTricuspid valve structure is normal. Trace transvalvular regurgitation. Insufficient tricuspid regurgitation jet to estimate RVSP . No stenosis.Aortic ValveAortic valve structure is normal. No transvalvular regurgitation. No evidence of aortic stenosis.Pulmonic ValveNot well visualized.Ascending AortaNormal sized aortic root.PericardiumThe pericardium is normal. No pericardial effusion.Study DetailsStudy quality was adequate. A complete echocardiogram was performed using 2D, color flow Doppler and spectral Doppler. 3 mL of Optison ultrasound enhancing agent used. [facility] 22:53:35* Test Item Value Reference Range Interpretation Comme nts Height (test code = 6946525267) 67 in Weight (test code = 0508042392) 221 lbs Systolic BP (test code = 6588469792) 151 mmHg Diastolic BP (test code = 3361190653) 75 mmHg Heart Rate (test code = 9713214548) 76 bpm BSA (test code = 6317168350) 2.11 m2 LVOT diameter (test code = 8649366527) 1.95 cm LVOT area (test code = 2068719482) 3.00 cm2 Ao root diam (test code = 8156975083) 2.80 cm Aortic root (test code = 3186743418) 2.8 cm Ao root annulus (test code = 6885650473) 2.8 cm LA size (test code = 4367598610) 2.8 cm E wave decelartion time (test code = 8587735823) 0.25 s MV Peak E Jagjit (test code = 4870159333) 129.6 cm/s MV Peak A Jagjit (test code = 7108014514) 124.7 cm/s E/A ratio (test code = 7649189064) 1.04 ratio MV Prop V (test code = 1888759056) 105.50 cm/s LAV(MOD-sp4) (test code = 0939000960) 58.50 mL Tapse (test code = 3094663333) 2.43 cm LVOT stroke volume (test code = 4706549432) 97.60 cm3 LVOT peak jagjit (test code = 0927378702) 154.8 cm/s LVOT mn grad (test code = 4607399715) 4.6 mmHg AV LVOT peak gradient (test code = 7350908976) 9.6 mmHg LVOT peak VTI (test code = 1921037072) 32.8 cm LV V1 mean (test code = 2297479605) 100.10 cm/s LA Volume Index (BP) (test code = 0358446926) 32.6 mL/m2 LA volume (BP) (test code = 0043159780) 68.7 mL LAV(MOD-sp2) (test code = 1098496468) 62.50 mL LVIDD (test code = 8401426751) 4.20 cm Left Ventricular End Diastolic Volume by Teichholz Method (test code = 4314197) 78.9 mL IVS (test code = 5342792854) 0.52 cm Interventricular Septum Diastolic Thickness by 2D (test code = 6579004) 0.52 cm LVPWD (test code = 6251351795) 0.75 cm PW (test code = 5944836292) 0.75 cm 0.6-1.1 EF(Teich) (test code = 6491561314) 63.10 % LVIDS (test code = 7192817615) 2.80 cm Left Ventricular End Systolic Volume by Teichholz Method (test code = 0801678) 29.1 mL FS (test code = 4443016639) 34 % EF - 2D (test code = 60647627) 63.10 % Radiology Study observation (narrative) (test code = 49657-4) COLLIN (test code = COLLIN) ?Left?Ventricle: Left ventricle size is normal. Increased wall thickness. Ventricular mass is normal. There is concentric remodeling. Septal motion is normal. Normal wall motion. Hyperdynamic systolic function with a visually estimated EF of greater than 65%. Diastolic dysfunction. Indeterminate left ventricular filling pressure. ?Right?Ventricle: Right ventricle size is normal. Normal wall thickness. Normal systolic function. ?Left?Atrium: Left atrium size is normal. Left atrium volume index is 32.6 mL/m2. ?Mitral?Valve: Mitral valve structure is normal. ?Tricuspid?Valve: Tricuspid valve structure is normal. Trace transvalvular regurgitation. Insufficient tricuspid regurgitation jet to estimate RVSP . Left VentricleLeft ventricle size is normal. Increased wall thickness. Ventricular mass is normal. There is concentric remodeling. Septal motion is normal. Normal wall motion. Hyperdynamic systolic function with a visually estimated EF of greater than 65%. Diastolic dysfunction. Indeterminate left ventricular filling pressure.Right VentricleRight ventricle size is normal. Normal wall thickness. Normal systolic function.Left AtriumLeft atrium size is normal. Left atrium volume index is 32.6 mL/m2.Right AtriumRight atrium size is normal.IVC/SVCIVC diameter is less than or equal to 21 mm and decreases less than 50% during inspiration; therefore the estimated right atrial pressure is intermediate (~8 mmHg).Mitral ValveMitral valve structure is normal. No transvalvular regurgitation. No stenosis.Tricuspid ValveTricuspid valve structure is normal. Trace transvalvular regurgitation. Insufficient tricuspid regurgitation jet to estimate RVSP . No stenosis.Aortic ValveAortic valve structure is normal. No transvalvular regurgitation. No evidence of aortic stenosis.Pulmonic ValveNot well visualized.Ascending AortaNormal sized aortic root.PericardiumThe pericardium is normal. No pericardial effusion.Study DetailsStudy quality was adequate. A complete echocardiogram was performed using 2D, color flow Doppler and spectral Doppler. 3 mL of Optison ultrasound enhancing agent used. [facility] ACT HIGH [id number] 13:05:06* Test Item Value Reference Range Interpretation Comme nts ACTHR (test code = 8544429425) 215 See_Comment H [Automated [employer]] The system which generated this result transmitted reference range: 96 - 152 Seconds. The reference range was not used to interpret this result as normal/abnormal. Lab Interpretation (test code = 88058-0) Abnormal [facility] ACT HIGH [id number] 13:05:06* Test Item Value Reference Range Interpretation Comme nts ACTHR (test code = 7530729607) 137 See_Comment [Automated [employer]] The system which generated this result transmitted reference range: 96 - 152 Seconds. The reference range was not used to interpret this result as normal/abnormal. Lab Interpretation (test code = 04597-2) Normal [facility] [id number] 13:05:06* Test Item Value Reference Range Interpretation Comme nts ACTHR (test code = 8995092357) 215 See_Comment H [Automated messa ge] The system which generated this result transmitted reference range: 96 - 152 Seconds. The reference range was not used to interpret this result as normal/abnormal. Lab Interpretation (test code = 84143-2) Abnormal [facility] [id number] 13:05:06* Test Item Value Reference Range Interpretation Comme nts ACTHR (test code = 0071173419) 137 See_Comment [Automated messa ge] The system which generated this result transmitted reference range: 96 - 152 Seconds. The reference range was not used to interpret this result as normal/abnormal. Lab Interpretation (test code = 66948-0) Normal [facility] [id number] 13:05:01* Test Item Value Reference Range Interpretation Comme nts ACTHR (test code = 4681041402) 181 See_Comment H [Automated messa ge] The system which generated this result transmitted reference range: 96 - 152 Seconds. The reference range was not used to interpret this result as normal/abnormal. Lab Interpretation (test code = 77385-2) Abnormal [facility] [id number] 13:05:01* Test Item Value Reference Range Interpretation Comme nts ACTHR (test code = 0949657052) 166 See_Comment H [Automated messa ge] The system which generated this result transmitted reference range: 96 - 152 Seconds. The reference range was not used to interpret this result as normal/abnormal. Lab Interpretation (test code = 97570-9) Abnormal [facility] [id number] 13:05:01* Test Item Value Reference Range Interpretation Comme nts ACTHR (test code = 3207868387) 225 See_Comment H [Automated messa ge] The system which generated this result transmitted reference range: 96 - 152 Seconds. The reference range was not used to interpret this result as normal/abnormal. Lab Interpretation (test code = 34863-3) Abnormal [facility] [id number] 13:05:01* Test Item Value Reference Range Interpretation Comme nts ACTHR (test code = 2758708426) 192 See_Comment H [Automated messa ge] The system which generated this result transmitted reference range: 96 - 152 Seconds. The reference range was not used to interpret this result as normal/abnormal. Lab Interpretation (test code = 04088-5) Abnormal [facility] [id number] 13:05:01* Test Item Value Reference Range Interpretation Comme nts ACTHR (test code = 0218759809) 224 See_Comment H [Automated messa ge] The system which generated this result transmitted reference range: 96 - 152 Seconds. The reference range was not used to interpret this result as normal/abnormal. Lab Interpretation (test code = 20693-5) Abnormal [facility] [id number] 13:05:01* Test Item Value Reference Range Interpretation Comme nts ACTHR (test code = 8144019957) 181 See_Comment H [Automated messa ge] The system which generated this result transmitted reference range: 96 - 152 Seconds. The reference range was not used to interpret this result as normal/abnormal. Lab Interpretation (test code = 32538-9) Abnormal [facility] [id number] 13:05:01* Test Item Value Reference Range Interpretation Comme nts ACTHR (test code = 9039155788) 166 See_Comment H [Automated messa ge] The system which generated this result transmitted reference range: 96 - 152 Seconds. The reference range was not used to interpret this result as normal/abnormal. Lab Interpretation (test code = 27902-1) Abnormal [facility] [id number] 13:05:01* Test Item Value Reference Range Interpretation Comme nts ACTHR (test code = 5506018426) 225 See_Comment H [Automated messa ge] The system which generated this result transmitted reference range: 96 - 152 Seconds. The reference range was not used to interpret this result as normal/abnormal. Lab Interpretation (test code = 23302-4) Abnormal [facility] HIGH [id number] 13:05:01* Test Item Value Reference Range Interpretation Comme nts ACTHR (test code = 2932433718) 192 See_Comment H [Automated messa ge] The system which generated this result transmitted reference range: 96 - 152 Seconds. The reference range was not used to interpret this result as normal/abnormal. Lab Interpretation (test code = 03039-8) Abnormal [facility] [id number] 13:05:01* Test Item Value Reference Range Interpretation Comme nts ACTHR (test code = 0560011047) 224 See_Comment H [Automated messa ge] The system which generated this result transmitted reference range: 96 - 152 Seconds. The reference range was not used to interpret this result as normal/abnormal. Lab Interpretation (test code = 36807-0) Abnormal [facility] [id number] 13:05:01* Test Item Value Reference Range Interpretation Comme nts ACTHR (test code = 5547640963) 219 See_Comment H [Automated messa ge] The system which generated this result transmitted reference range: 96 - 152 Seconds. The reference range was not used to interpret this result as normal/abnormal. Lab Interpretation (test code = 61912-5) Abnormal [facility] [id number] 13:05:01* Test Item Value Reference Range Interpretation Comme nts ACTHR (test code = 5969202193) 219 See_Comment H [Automated messa ge] The system which generated this result transmitted reference range: 96 - 152 Seconds. The reference range was not used to interpret this result as normal/abnormal. Lab Interpretation (test code = 52782-6) Abnormal [facility] [id number] 13:04:56* Test Item Value Reference Range Interpretation Comme nts ACTHR (test code = 0325615437) 213 See_Comment H [Automated messa ge] The system which generated this result transmitted reference range: 96 - 152 Seconds. The reference range was not used to interpret this result as normal/abnormal. Lab Interpretation (test code = 00206-6) Abnormal [facility] [id number] 13:04:56* Test Item Value Reference Range Interpretation Comme nts ACTHR (test code = 9086293790) 209 See_Comment H [Automated messa ge] The system which generated this result transmitted reference range: 96 - 152 Seconds. The reference range was not used to interpret this result as normal/abnormal. Lab Interpretation (test code = 44679-2) Abnormal [facility] ACT HIGH [id number] 13:04:56* Test Item Value Reference Range Interpretation Comme nts ACTHR (test code = 5420806630) 213 See_Comment H [Automated messa ge] The system which generated this result transmitted reference range: 96 - 152 Seconds. The reference range was not used to interpret this result as normal/abnormal. Lab Interpretation (test code = 36683-6) Abnormal [facility] ACT HIGH [id number] 13:04:56* Test Item Value Reference Range Interpretation Comme nts ACTHR (test code = 4719745995) 209 See_Comment H [Automated messa ge] The system which generated this result transmitted reference range: 96 - 152 Seconds. The reference range was not used to interpret this result as normal/abnormal. Lab Interpretation (test code = 72429-7) Abnormal [facility] METABOLIC PANEL (NA, K, CL, CO2, GLUCOSE, BUN, CREATININE, CA)2023-04-03 10:43:30* Test Item Value Reference Range Interpretation Comme nts NA (test code = 6513751950) 132 mmol/L 135-145 L K (test code = 7056819023) 4.4 mmol/L 3.5-5.0 CL (test code = 3149906662) 107 mmol/L 98-108 CO2 TOTAL (test code = 9311367755) 22 mmol/L 23-31 L AGAP (test code = 6278735477) 3 2-16 BUN (test code = 5590153109) 11 mg/dL 7-23 GLUCOSE (test code = 6028967789) 145 mg/dL 70-110 H CREATININE (test code = 0893317873) 0.65 mg/dL 0.50-1.04 CALCIUM (test code = 4416853926) 7.8 mg/dL 8.6-10.6 L eGFR (test code = 54332-1) 108.8 mL/min/1.73m2 CKD-EPI eGFR (2020). Assuming creatinine has been stable day-to-day for at least three months, the eGFR indicates Category G1 (>= 90 mL/min/1.73 m2) Lab Interpretation (test code = 21670-3) [facility] 10:43:30* Test Item Value Reference Range Interpretation Comme nts PHOSPHORUS (test code = 7350431378) 2.8 mg/dL 2.5-5.0 Lab Interpretation (test cod e = 08792-2) [facility] 10:43:30* Test Item Value Reference Range Interpretation Comme nts MAGNESIUM (test code = 6688626471) 1.4 mg/dL 1.7-2.4 L Lab Interpretation (test cod e = 76414-8) Abnormal [facility] METABOLIC PANEL (NA, K, CL, CO2, GLUCOSE, BUN, CREATININE, CA)2023-04-03 10:43:30* Test Item Value Reference Range Interpretation Comme nts NA (test code = 6511240666) 132 mmol/L 135-145 L K (test code = 5047619834) 4.4 mmol/L 3.5-5.0 CL (test code = 2405252380) 107 mmol/L 98-108 CO2 TOTAL (test code = 7694813240) 22 mmol/L 23-31 L AGAP (test code = 4192704993) 3 2-16 BUN (test code = 0798846343) 11 mg/dL 7-23 GLUCOSE (test code = 4555329633) 145 mg/dL 70-110 H CREATININE (test code = 9489313022) 0.65 mg/dL 0.50-1.04 CALCIUM (test code = 7123651114) 7.8 mg/dL 8.6-10.6 L eGFR (test code = 78968-7) 108.8 mL/min/1.73m2 CKD-EPI eGFR (2020). Assuming creatinine has been stable day-to-day for at least three months, the eGFR indicates Category G1 (>= 90 mL/min/1.73 m2) Lab Interpretation (test code = 57455-3) [facility] 10:43:30* Test Item Value Reference Range Interpretation Comme nts PHOSPHORUS (test code = 4022098757) 2.8 mg/dL 2.5-5.0 Lab Interpretation (test cod e = 32829-7) [facility] 10:43:30* Test Item Value Reference Range Interpretation Comme nts MAGNESIUM (test code = 7633312984) 1.4 mg/dL 1.7-2.4 L Lab Interpretation (test cod e = 48437-0) [facility] [id number] 10:08:26* Test Item Value Reference Range Interpretation Comme nts WBC (test code = 6690-2) 11.10 See_Comment [Automated messa ge] The system which generated this result transmitted reference range: 4.30 - 11.10 10*3/?L. The reference range was not used to interpret this result as normal/abnormal. RBC (test code = 789-8) 2.40 See_Comment L [Automated messa ge] The system which generated this result transmitted reference range: 3.93 - 5.25 10*6/?L. The reference range was not used to interpret this result as normal/abnormal. HGB (test code = 718-7) 8.3 g/dL 11.6-15.0 L HCT (test code = 4544-3) 24.1 % 35.7-45.2 L MCV (test code = 787-2) 100.4 fL 80.6-95.5 H MCH (test code = 785-6) 34.6 pg 25.9-32.8 H MCHC (test code = 786-4) 34.4 g/dL 31.6-35.1 RDW-SD (test code = 10286-1) 48.7 fL 39.0-49.9 RDW-CV (test code = 788-0) 13.3 % 12.0-15.5 PLT (test code = 777-3) 210 See_Comment [Automated messa ge] The system which generated this result transmitted reference range: 166 - 358 10*3/?L. The reference range was not used to interpret this result as normal/abnormal. MPV (test code = 19171-8) 9.9 fL 9.5-12.9 NRBC/100 WBC (test code = 0344867324) 0.0 See_Comment [Automated me ssage] The system which generated this result transmitted reference range: 0.0 - 10.0 /100 WBCs. The reference range was not used to interpret this result as normal/abnormal. NRBC x10^3 (test code = 6523650843) See_Comment [Automated messa ge] The system which generated this result transmitted reference range: 10*3/?L. The reference range was not used to interpret this result as normal/abnormal. GRAN MAT (NEUT) % (test code = 770-8) 87.9 % IMM GRAN % (test code = 3604624607) 0.40 % LYMPH % (test code = 736-9) 7.9 % MONO % (test code = 5905-5) 3.8 % EOS % (test code = 713-8) 0.0 % BASO % (test code = 706-2) 0.0 % GRAN MAT x10^3(ANC) (test code = 2224773357) 9.76 10*3/uL 1.88-7.09 H IMM GRAN x10^3 (test code = 5012111872) 0.04 10*3/uL 0.00-0.06 LYMPH x10^3 (test code = 731-0) 0.88 10*3/uL 1.32-3.29 L MONO x10^3 (test code = 742-7) 0.42 10*3/uL 0.33-0.92 EOS x10^3 (test code = 711-2) 0.03-0.39 L BASO x10^3 (test code = 704-7) 0.01-0.07 Lab Interpretation (test code = 24264-6) Abnormal [facility] WITH [id number] 10:08:26* Test Item Value Reference Range Interpretation Comme nts WBC (test code = 6690-2) 11.10 See_Comment [Automated messa ge] The system which generated this result transmitted reference range: 4.30 - 11.10 10*3/?L. The reference range was not used to interpret this result as normal/abnormal. RBC (test code = 789-8) 2.40 See_Comment L [Automated messa ge] The system which generated this result transmitted reference range: 3.93 - 5.25 10*6/?L. The reference range was not used to interpret this result as normal/abnormal. HGB (test code = 718-7) 8.3 g/dL 11.6-15.0 L HCT (test code = 4544-3) 24.1 % 35.7-45.2 L MCV (test code = 787-2) 100.4 fL 80.6-95.5 H MCH (test code = 785-6) 34.6 pg 25.9-32.8 H MCHC (test code = 786-4) 34.4 g/dL 31.6-35.1 RDW-SD (test code = 12406-7) 48.7 fL 39.0-49.9 RDW-CV (test code = 788-0) 13.3 % 12.0-15.5 PLT (test code = 777-3) 210 See_Comment [Automated messa ge] The system which generated this result transmitted reference range: 166 - 358 10*3/?L. The reference range was not used to interpret this result as normal/abnormal. MPV (test code = 72975-4) 9.9 fL 9.5-12.9 NRBC/100 WBC (test code = 0907873329) 0.0 See_Comment [Automated [employer] ssage] The system which generated this result transmitted reference range: 0.0 - 10.0 /100 WBCs. The reference range was not used to interpret this result as normal/abnormal. NRBC x10^3 (test code = 7842012324) See_Comment [Automated messa ge] The system which generated this result transmitted reference range: 10*3/?L. The reference range was not used to interpret this result as normal/abnormal. GRAN MAT (NEUT) % (test code = 770-8) 87.9 % IMM GRAN % (test code = 5657898868) 0.40 % LYMPH % (test code = 736-9) 7.9 % MONO % (test code = 5905-5) 3.8 % EOS % (test code = 713-8) 0.0 % BASO % (test code = 706-2) 0.0 % GRAN MAT x10^3(ANC) (test code = 3360784542) 9.76 10*3/uL 1.88-7.09 H IMM GRAN x10^3 (test code = 8441440581) 0.04 10*3/uL 0.00-0.06 LYMPH x10^3 (test code = 731-0) 0.88 10*3/uL 1.32-3.29 L MONO x10^3 (test code = 742-7) 0.42 10*3/uL 0.33-0.92 EOS x10^3 (test code = 711-2) 0.03-0.39 L BASO x10^3 (test code = 704-7) 0.01-0.07 Lab Interpretation (test code = 50536-3) [facility] + Lactic [id number] 08:00:52* Test Item Value Reference Range Interpretation Comme nts PH (test code = 2) 7.36 7.35-7.45 PCO2 (test code = 1426657165) 38 See_Comment [Automated messa ge] The system which generated this result transmitted reference range: 35 - 45 mmHg. The reference range was not used to interpret this result as normal/abnormal. PO2 (test code = 5689300348) 122 See_Comment H [Automated messa ge] The system which generated this result transmitted reference range: 80 - 100 mmHg. The reference range was not used to interpret this result as normal/abnormal. HCO3 (test code = 7822197482) 21 See_Comment L [Automated messa ge] The system which generated this result transmitted reference range: 22 - 26 mEq/L. The reference range was not used to interpret this result as normal/abnormal. BE (test code = 0104803829) -4.0 See_Comment L [Automated messa ge] The system which generated this result transmitted reference range: -3.0 - 3.0 mEq/L. The reference range was not used to interpret this result as normal/abnormal. THB (test code = 2503175314) 12.7 g/dL 12.0-16.0 %O2HB (test code = 8265732259) 97.4 % 94.0-99.0 %COHB ART (test code = 7348578806) 0.9 % 0.0-1.5 %METHB ART (test code = 3980079036) 0.0 % 0.4-1.5 L VOL%O2 ART (test code = 2375202896) 17.6 % 15.0-23.0 NA (test code = 2198321072) 135 mmol/L 135-145 K+ (test code = 7889843431) 4.3 mmol/L 3.5-5.0 AC CA IONZ (test code = 0899817505) 4.60 mg/dL 4.50-5.30 GLUCOSE (test code = 3146757004) 169 mg/dL 70-110 H LACTIC ACID (test code = 3094052380) 2.18 mmol/L 0.50-2.20 Lab Interpretation (test code = 89778-4) [facility] + Lactic [id number] 08:00:52* Test Item Value Reference Range Interpretation Comme nts PH (test code = 2) 7.36 7.35-7.45 PCO2 (test code = 1701028854) 38 See_Comment [Automated messa ge] The system which generated this result transmitted reference range: 35 - 45 mmHg. The reference range was not used to interpret this result as normal/abnormal. PO2 (test code = 2439414638) 122 See_Comment H [Automated messa ge] The system which generated this result transmitted reference range: 80 - 100 mmHg. The reference range was not used to interpret this result as normal/abnormal. HCO3 (test code = 4495386707) 21 See_Comment L [Automated messa ge] The system which generated this result transmitted reference range: 22 - 26 mEq/L. The reference range was not used to interpret this result as normal/abnormal. BE (test code = 4601152535) -4.0 See_Comment L [Automated messa ge] The system which generated this result transmitted reference range: -3.0 - 3.0 mEq/L. The reference range was not used to interpret this result as normal/abnormal. THB (test code = 2688669891) 12.7 g/dL 12.0-16.0 %O2HB (test code = 1590691895) 97.4 % 94.0-99.0 %COHB ART (test code = 6194439523) 0.9 % 0.0-1.5 %METHB ART (test code = 6744986018) 0.0 % 0.4-1.5 L VOL%O2 ART (test code = 4876908513) 17.6 % 15.0-23.0 NA (test code = 9873981041) 135 mmol/L 135-145 K+ (test code = 5350899646) 4.3 mmol/L 3.5-5.0 AC CA IONZ (test code = 9795697259) 4.60 mg/dL 4.50-5.30 GLUCOSE (test code = 0077064862) 169 mg/dL 70-110 H LACTIC ACID (test code = 5400257359) 2.18 mmol/L 0.50-2.20 Lab Interpretation (test code = 24485-9) Abnormal [facility] METABOLIC PANEL (NA, K, CL, CO2, GLUCOSE, BUN, CREATININE, CA)2023-04-03 06:54:26* Test Item Value Reference Range Interpretation Comme nts NA (test code = 2338460483) 133 mmol/L 135-145 L K (test code = 5825489080) 4.4 mmol/L 3.5-5.0 CL (test code = 8301501789) 108 mmol/L 98-108 CO2 TOTAL (test code = 6310649944) 21 mmol/L 23-31 L AGAP (test code = 7722772736) 4 2-16 BUN (test code = 2963502574) 11 mg/dL 7-23 GLUCOSE (test code = 0526930726) 180 mg/dL 70-110 H CREATININE (test code = 8974606188) 0.66 mg/dL 0.50-1.04 CALCIUM (test code = 0193484176) 7.8 mg/dL 8.6-10.6 L eGFR (test code = 65814-9) 108.4 mL/min/1.73m2 CKD-EPI eGFR (2020). Assuming creatinine has been stable day-to-day for at least three months, the eGFR indicates Category G1 (>= 90 mL/min/1.73 m2) Lab Interpretation (test code = 88261-8) Abnormal [facility] METABOLIC PANEL (NA, K, CL, CO2, GLUCOSE, BUN, CREATININE, CA)2023-04-03 06:54:26* Test Item Value Reference Range Interpretation Comme nts NA (test code = 3890880109) 133 mmol/L 135-145 L K (test code = 7403003425) 4.4 mmol/L 3.5-5.0 CL (test code = 3193308055) 108 mmol/L 98-108 CO2 TOTAL (test code = 2116034295) 21 mmol/L 23-31 L AGAP (test code = 7677534469) 4 2-16 BUN (test code = 3491295902) 11 mg/dL 7-23 GLUCOSE (test code = 8944455781) 180 mg/dL 70-110 H CREATININE (test code = 6698748602) 0.66 mg/dL 0.50-1.04 CALCIUM (test code = 0139058512) 7.8 mg/dL 8.6-10.6 L eGFR (test code = 39471-9) 108.4 mL/min/1.73m2 CKD-EPI eGFR (2020). Assuming creatinine has been stable day-to-day for at least three months, the eGFR indicates Category G1 (>= 90 mL/min/1.73 m2) Lab Interpretation (test code = 14763-6) [facility] 06:46:24* Test Item Value Reference Range Interpretation Comme [facility] APTT Patient (test code = 3173-2) See_Comment HH [Automated messa ge] The system which generated this result transmitted reference range: 26 - 36 Seconds. The reference range was not used to interpret this result as normal/abnormal. Lab Interpretation (test code = 87326-9) [facility] 06:46:24* Test Item Value Reference Range Interpretation Comme [facility] APTT Patient (test code = 3173-2) See_Comment HH [Automated messa ge] The system which generated this result transmitted reference range: 26 - 36 Seconds. The reference range was not used to interpret this result as normal/abnormal. Lab Interpretation (test code = 78377-2) [facility]normal [facility] / [id number] 06:42:02* Test Item Value Reference Range Interpretation Comme [facility] PROTIME PATIENT (test code = 5964-2) 12.2 See_Comment [Automated messa ge] The system which generated this result transmitted reference range: 10.1 - 12.6 Seconds. The reference range was not used to interpret this result as normal/abnormal. INR (test code = 6301-6) 1.1 Normal INR <1.1; Warfarin Therapeutic range 2.0 to 3.0 or 2.5 to 3.5, depending upon the indications. Lab Interpretation (test code = 90243-6) Normal [facility] / [id number] 06:42:02* Test Item Value Reference Range Interpretation Comme nts PROTIME PATIENT (test code = 5964-2) 12.2 See_Comment [Automated messa ge] The system which generated this result transmitted reference range: 10.1 - 12.6 Seconds. The reference range was not used to interpret this result as normal/abnormal. INR (test code = 6301-6) 1.1 Normal INR <1.1; Warfarin Therapeutic range 2.0 to 3.0 or 2.5 to 3.5, depending upon the indications. Lab Interpretation (test code = 63513-0) [facility] WITHOUT [id number] 06:25:24* Test Item Value Reference Range Interpretation Comme nts WBC (test code = 6690-2) 8.33 See_Comment [Automated message] The system which generated this result transmitted reference range: 4.30 - 11.10 10*3/?L. The reference range was not used to interpret this result as normal/abnormal. RBC (test code = 789-8) 2.55 See_Comment L [Automated message] The system which generated this result transmitted reference range: 3.93 - 5.25 10*6/?L. The reference range was not used to interpret this result as normal/abnormal. HGB (test code = 718-7) 8.6 g/dL 11.6-15.0 L HCT (test code = 4544-3) 24.9 % 35.7-45.2 L MCH (test code = 785-6) 33.7 pg 25.9-32.8 H MCV (test code = 787-2) 97.6 fL 80.6-95.5 H MCHC (test code = 786-4) 34.5 g/dL 31.6-35.1 PLT (test code = 777-3) 225 See_Comment [Automated message] The system which generated this result transmitted reference range: 166 - 358 10*3/?L. The reference range was not used to interpret this result as normal/abnormal. MPV (test code = 09305-1) 9.6 fL 9.5-12.9 RDW-CV (test code = 788-0) 13.2 % 12.0-15.5 RDW-SD (test code = 36322-0) 46.4 fL 39.0-49.9 NRBC x10^3 (test code = 7895543021) See_Comment [Automated messa ge] The system which generated this result transmitted reference range: 10*3/?L. The reference range was not used to interpret this result as normal/abnormal. NRBC/100 WBC (test code = 0709921085) 0.0 See_Comment [Automated messa ge] The system which generated this result transmitted reference range: 0.0 - 10.0 /100 WBCs. The reference range was not used to interpret this result as normal/abnormal. IPF % (test code = 0844553488) Lab Interpretation (test code = 36181-8) Abnormal [facility] WITHOUT [id number] 06:25:24* Test Item Value Reference Range Interpretation Comme nts WBC (test code = 6690-2) 8.33 See_Comment [Automated message] The system which generated this result transmitted reference range: 4.30 - 11.10 10*3/?L. The reference range was not used to interpret this result as normal/abnormal. RBC (test code = 789-8) 2.55 See_Comment L [Automated message] The system which generated this result transmitted reference range: 3.93 - 5.25 10*6/?L. The reference range was not used to interpret this result as normal/abnormal. HGB (test code = 718-7) 8.6 g/dL 11.6-15.0 L HCT (test code = 4544-3) 24.9 % 35.7-45.2 L MCH (test code = 785-6) 33.7 pg 25.9-32.8 H MCV (test code = 787-2) 97.6 fL 80.6-95.5 H MCHC (test code = 786-4) 34.5 g/dL 31.6-35.1 PLT (test code = 777-3) 225 See_Comment [Automated message] The system which generated this result transmitted reference range: 166 - 358 10*3/?L. The reference range was not used to interpret this result as normal/abnormal. MPV (test code = 73683-9) 9.6 fL 9.5-12.9 RDW-CV (test code = 788-0) 13.2 % 12.0-15.5 RDW-SD (test code = 33572-6) 46.4 fL 39.0-49.9 NRBC x10^3 (test code = 3472131313) See_Comment [Automated messa ge] The system which generated this result transmitted reference range: 10*3/?L. The reference range was not used to interpret this result as normal/abnormal. NRBC/100 WBC (test code = 6710274657) 0.0 See_Comment [Automated messa ge] The system which generated this result transmitted reference range: 0.0 - 10.0 /100 WBCs. The reference range was not used to interpret this result as normal/abnormal. IPF % (test code = 0189246616) Lab Interpretation (test code = 40260-0) Abnormal [facility] WITH [id number] 04:20:47* Test Item Value Reference Range Interpretation Comme nts WBC (test code = 6690-2) 12.72 See_Comment H [Automated message] The system which generated this result transmitted reference range: 4.30 - 11.10 10*3/?L. The reference range was not used to interpret this result as normal/abnormal. RBC (test code = 789-8) 2.76 See_Comment L [Automated message] The system which generated this result transmitted reference range: 3.93 - 5.25 10*6/?L. The reference range was not used to interpret this result as normal/abnormal. HGB (test code = 718-7) 9.4 g/dL 11.6-15.0 L HCT (test code = 4544-3) 27.6 % 35.7-45.2 L MCV (test code = 787-2) 100.0 fL 80.6-95.5 H MCH (test code = 785-6) 34.1 pg 25.9-32.8 H MCHC (test code = 786-4) 34.1 g/dL 31.6-35.1 RDW-SD (test code = 41333-2) 48.2 fL 39.0-49.9 RDW-CV (test code = 788-0) 13.5 % 12.0-15.5 PLT (test code = 777-3) 258 See_Comment [Automated message] The system which generated this result transmitted reference range: 166 - 358 10*3/?L. The reference range was not used to interpret this result as normal/abnormal. MPV (test code = 68111-8) 9.9 fL 9.5-12.9 NRBC/100 WBC (test code = 9914329330) 0.0 See_Comment [Automated message] The system which generated this result transmitted reference range: 0.0 - 10.0 /100 WBCs. The reference range was not used to interpret this result as normal/abnormal. NRBC x10^3 (test code = 2079026679) See_Comment [Automated message] The system which generated this result transmitted reference range: 10*3/?L. The reference range was not used to interpret this result as normal/abnormal. GRAN MAT (NEUT) % (test code = 770-8) 89.0 % IMM GRAN % (test code = 0101125155) 0.60 % LYMPH % (test code = 736-9) 8.4 % MONO % (test code = 5905-5) 1.7 % EOS % (test code = 713-8) 0.1 % BASO % (test code = 706-2) 0.2 % GRAN MAT x10^3(ANC) (test code = 0582358657) 11.33 10*3/uL 1.88-7.09 H IMM GRAN x10^3 (test code = 3932364573) 0.07 10*3/uL 0.00-0.06 H LYMPH x10^3 (test code = 731-0) 1.07 10*3/uL 1.32-3.29 L MONO x10^3 (test code = 742-7) 0.22 10*3/uL 0.33-0.92 L EOS x10^3 (test code = 711-2) 0.03-0.39 L BASO x10^3 (test code = 704-7) 0.01-0.07 Lab Interpretation (test code = 03164-3) Abnormal [facility] WITH [id number] 04:20:47* Test Item Value Reference Range Interpretation Comme nts WBC (test code = 6690-2) 12.72 See_Comment H [Automated message] The system which generated this result transmitted reference range: 4.30 - 11.10 10*3/?L. The reference range was not used to interpret this result as normal/abnormal. RBC (test code = 789-8) 2.76 See_Comment L [Automated message] The system which generated this result transmitted reference range: 3.93 - 5.25 10*6/?L. The reference range was not used to interpret this result as normal/abnormal. HGB (test code = 718-7) 9.4 g/dL 11.6-15.0 L HCT (test code = 4544-3) 27.6 % 35.7-45.2 L MCV (test code = 787-2) 100.0 fL 80.6-95.5 H MCH (test code = 785-6) 34.1 pg 25.9-32.8 H MCHC (test code = 786-4) 34.1 g/dL 31.6-35.1 RDW-SD (test code = 47298-6) 48.2 fL 39.0-49.9 RDW-CV (test code = 788-0) 13.5 % 12.0-15.5 PLT (test code = 777-3) 258 See_Comment [Automated message] The system which generated this result transmitted reference range: 166 - 358 10*3/?L. The reference range was not used to interpret this result as normal/abnormal. MPV (test code = 18008-0) 9.9 fL 9.5-12.9 NRBC/100 WBC (test code = 6876515475) 0.0 See_Comment [Automated message] The system which generated this result transmitted reference range: 0.0 - 10.0 /100 WBCs. The reference range was not used to interpret this result as normal/abnormal. NRBC x10^3 (test code = 5545745624) See_Comment [Automated message] The system which generated this result transmitted reference range: 10*3/?L. The reference range was not used to interpret this result as normal/abnormal. GRAN MAT (NEUT) % (test code = 770-8) 89.0 % IMM GRAN % (test code = 2460165129) 0.60 % LYMPH % (test code = 736-9) 8.4 % MONO % (test code = 5905-5) 1.7 % EOS % (test code = 713-8) 0.1 % BASO % (test code = 706-2) 0.2 % GRAN MAT x10^3(ANC) (test code = 3233622101) 11.33 10*3/uL 1.88-7.09 H IMM GRAN x10^3 (test code = 9031484991) 0.07 10*3/uL 0.00-0.06 H LYMPH x10^3 (test code = 731-0) 1.07 10*3/uL 1.32-3.29 L MONO x10^3 (test code = 742-7) 0.22 10*3/uL 0.33-0.92 L EOS x10^3 (test code = 711-2) 0.03-0.39 L BASO x10^3 (test code = 704-7) 0.01-0.07 Lab Interpretation (test code = 40148-2) Abnormal [facility] METABOLIC PANEL (NA, K, CL, CO2, GLUCOSE, BUN, CREATININE, CA)2023-04-03 03:44:03* Test Item Value Reference Range Interpretation Comme nts NA (test code = 5922620792) 137 mmol/L 135-145 K (test code = 2250543853) 4.7 mmol/L 3.5-5.0 CL (test code = 1325586229) 109 mmol/L 98-108 H CO2 TOTAL (test code = 4878399063) 19 mmol/L 23-31 L AGAP (test code = 9006403479) 9 2-16 BUN (test code = 8696241152) 11 mg/dL 7-23 GLUCOSE (test code = 3759480811) 128 mg/dL 70-110 H CREATININE (test code = 9055521457) 0.65 mg/dL 0.50-1.04 CALCIUM (test code = 6558223058) 7.5 mg/dL 8.6-10.6 L eGFR (test code = 45307-2) 108.8 mL/min/1.73m2 CKD-EPI eGFR (2020). Assuming creatinine has been stable day-to-day for at least three months, the eGFR indicates Category G1 (>= 90 mL/min/1.73 m2) Lab Interpretation (test code = 60546-8) Abnormal [facility] METABOLIC PANEL (NA, K, CL, CO2, GLUCOSE, BUN, CREATININE, CA)2023-04-03 03:44:03* Test Item Value Reference Range Interpretation Comme nts NA (test code = 6076241995) 137 mmol/L 135-145 K (test code = 2083460860) 4.7 mmol/L 3.5-5.0 CL (test code = 0030504610) 109 mmol/L 98-108 H CO2 TOTAL (test code = 9956020780) 19 mmol/L 23-31 L AGAP (test code = 3683474459) 9 2-16 BUN (test code = 1024104805) 11 mg/dL 7-23 GLUCOSE (test code = 4187190867) 128 mg/dL 70-110 H CREATININE (test code = 6115182923) 0.65 mg/dL 0.50-1.04 CALCIUM (test code = 6511401943) 7.5 mg/dL 8.6-10.6 L eGFR (test code = 73349-4) 108.8 mL/min/1.73m2 CKD-EPI eGFR (2020). Assuming creatinine has been stable day-to-day for at least three months, the eGFR indicates Category G1 (>= 90 mL/min/1.73 m2) Lab Interpretation (test code = 05321-6) [facility] 03:21:01* Test Item Value Reference Range Interpretation Comme nts PH (test code = 2) 7.31 7.35-7.45 L PCO2 (test code = 2984720567) 36 See_Comment [Automated messa ge] The system which generated this result transmitted reference range: 35 - 45 mmHg. The reference range was not used to interpret this result as normal/abnormal. PO2 (test code = 0020551499) 160 See_Comment H [Automated messa ge] The system which generated this result transmitted reference range: 80 - 100 mmHg. The reference range was not used to interpret this result as normal/abnormal. HCO3 (test code = 6014660799) 18 See_Comment L [Automated messa ge] The system which generated this result transmitted reference range: 22 - 26 mEq/L. The reference range was not used to interpret this result as normal/abnormal. BE (test code = 6677197135) -8.0 See_Comment L [Automated messa ge] The system which generated this result transmitted reference range: -3.0 - 3.0 mEq/L. The reference range was not used to interpret this result as normal/abnormal. THB (test code = 8741497835) 13.0 g/dL 12.0-16.0 %O2HB (test code = 9955454651) 97.8 % 94.0-99.0 %COHB ART (test code = 1311720747) 0.6 % 0.0-1.5 %METHB ART (test code = 0046392124) 0.3 % 0.4-1.5 L VOL%O2 ART (test code = 5049041877) 18.2 % 15.0-23.0 QUES NA (test code = 3763101711) 133 mmol/L 135-145 L K+ (test code = 1289120855) 4.1 mmol/L 3.5-5.0 AC CA IONZ (test code = 5898396377) 4.50 mg/dL 4.50-5.30 GLUCOSE (test code = 8389160284) 103 mg/dL 70-110 Lab Interpretation (test code = 61550-5) [facility]CA2[facility]-03 03:21:01* Test Item Value Reference Range Interpretation Comme nts PH (test code = 2) 7.31 7.35-7.45 L PCO2 (test code = 6107259933) 36 See_Comment [Automated messa ge] The system which generated this result transmitted reference range: 35 - 45 mmHg. The reference range was not used to interpret this result as normal/abnormal. PO2 (test code = 2779243089) 160 See_Comment H [Automated messa ge] The system which generated this result transmitted reference range: 80 - 100 mmHg. The reference range was not used to interpret this result as normal/abnormal. HCO3 (test code = 2793173667) 18 See_Comment L [Automated messa ge] The system which generated this result transmitted reference range: 22 - 26 mEq/L. The reference range was not used to interpret this result as normal/abnormal. BE (test code = 9955790590) -8.0 See_Comment L [Automated messa ge] The system which generated this result transmitted reference range: -3.0 - 3.0 mEq/L. The reference range was not used to interpret this result as normal/abnormal. THB (test code = 3096268274) 13.0 g/dL 12.0-16.0 %O2HB (test code = 0535305182) 97.8 % 94.0-99.0 %COHB ART (test code = 6636457081) 0.6 % 0.0-1.5 %METHB ART (test code = 2287626482) 0.3 % 0.4-1.5 L VOL%O2 ART (test code = 5755147050) 18.2 % 15.0-23.0 QUES NA (test code = 4393506644) 133 mmol/L 135-145 L K+ (test code = 0952136462) 4.1 mmol/L 3.5-5.0 AC CA IONZ (test code = 7239762239) 4.50 mg/dL 4.50-5.30 GLUCOSE (test code = 9791157636) 103 mg/dL 70-110 Lab Interpretation (test code = 95024-4) [facility]CA2+[facility]23-[facility]-03 03:19:00* Test Item Value Reference Range Interpretation Comme nts PH (test code = 2) 7.30 7.35-7.45 L PCO2 (test code = 3958682497) 36 See_Comment [Automated messa ge] The system which generated this result transmitted reference range: 35 - 45 mmHg. The reference range was not used to interpret this result as normal/abnormal. PO2 (test code = 2457887478) 148 See_Comment H [Automated messa ge] The system which generated this result transmitted reference range: 80 - 100 mmHg. The reference range was not used to interpret this result as normal/abnormal. HCO3 (test code = 2246893080) 17 See_Comment L [Automated messa ge] The system which generated this result transmitted reference range: 22 - 26 mEq/L. The reference range was not used to interpret this result as normal/abnormal. BE (test code = 2391177724) -8.6 See_Comment L [Automated messa ge] The system which generated this result transmitted reference range: -3.0 - 3.0 mEq/L. The reference range was not used to interpret this result as normal/abnormal. THB (test code = 5698187813) 11.7 g/dL 12.0-16.0 L %O2HB (test code = 5648856890) 97.6 % 94.0-99.0 %COHB ART (test code = 0604243060) 0.8 % 0.0-1.5 %METHB ART (test code = 4373861523) 0.3 % 0.4-1.5 L VOL%O2 ART (test code = 0002316955) 16.3 % 15.0-23.0 QUES NA (test code = 3489169807) 134 mmol/L 135-145 L K+ (test code = 0766366066) 4.0 mmol/L 3.5-5.0 AC CA IONZ (test code = 3673844822) 4.50 mg/dL 4.50-5.30 GLUCOSE (test code = 1820669904) 109 mg/dL 70-110 Lab Interpretation (test code = 48339-2) [facility]CA2+[facility]23-[facility]-03 03:19:00* Test Item Value Reference Range Interpretation Comme nts PH (test code = 2) 7.30 7.35-7.45 L PCO2 (test code = 7591899922) 36 See_Comment [Automated messa ge] The system which generated this result transmitted reference range: 35 - 45 mmHg. The reference range was not used to interpret this result as normal/abnormal. PO2 (test code = 7327119630) 148 See_Comment H [Automated messa ge] The system which generated this result transmitted reference range: 80 - 100 mmHg. The reference range was not used to interpret this result as normal/abnormal. HCO3 (test code = 6043368769) 17 See_Comment L [Automated messa ge] The system which generated this result transmitted reference range: 22 - 26 mEq/L. The reference range was not used to interpret this result as normal/abnormal. BE (test code = 4149313646) -8.6 See_Comment L [Automated messa ge] The system which generated this result transmitted reference range: -3.0 - 3.0 mEq/L. The reference range was not used to interpret this result as normal/abnormal. THB (test code = 6444684203) 11.7 g/dL 12.0-16.0 L %O2HB (test code = 5132353205) 97.6 % 94.0-99.0 %COHB ART (test code = 7767501645) 0.8 % 0.0-1.5 %METHB ART (test code = 6322654026) 0.3 % 0.4-1.5 L VOL%O2 ART (test code = 8892309338) 16.3 % 15.0-23.0 QUES NA (test code = 8889718707) 134 mmol/L 135-145 L K+ (test code = 8982687636) 4.0 mmol/L 3.5-5.0 AC CA IONZ (test code = 7599301862) 4.50 mg/dL 4.50-5.30 GLUCOSE (test code = 1003345078) 109 mg/dL 70-110 Lab Interpretation (test code = 60961-5) [facility]CA2+[facility]23-[facility]-03 03:18:29* Test Item Value Reference Range Interpretation Comme nts PH (test code = 2) 7.33 7.35-7.45 L PCO2 (test code = 6628187281) 33 See_Comment L [Automated messa ge] The system which generated this result transmitted reference range: 35 - 45 mmHg. The reference range was not used to interpret this result as normal/abnormal. PO2 (test code = 5856465337) 182 See_Comment H [Automated messa ge] The system which generated this result transmitted reference range: 80 - 100 mmHg. The reference range was not used to interpret this result as normal/abnormal. HCO3 (test code = 8848231077) 17 See_Comment L [Automated messa ge] The system which generated this result transmitted reference range: 22 - 26 mEq/L. The reference range was not used to interpret this result as normal/abnormal. BE (test code = 6595421814) -7.9 See_Comment L [Automated messa ge] The system which generated this result transmitted reference range: -3.0 - 3.0 mEq/L. The reference range was not used to interpret this result as normal/abnormal. THB (test code = 6903591496) 11.1 g/dL 12.0-16.0 L %O2HB (test code = 8230726088) 98.5 % 94.0-99.0 %COHB ART (test code = 0235795921) 0.1 % 0.0-1.5 %METHB ART (test code = 4927451957) 0.0 % 0.4-1.5 L VOL%O2 ART (test code = 4063672883) 15.8 % 15.0-23.0 QUES NA (test code = 9875969405) 135 mmol/L 135-145 K+ (test code = 6323028344) 4.5 mmol/L 3.5-5.0 AC CA IONZ (test code = 6753035348) 4.50 mg/dL 4.50-5.30 GLUCOSE (test code = 9902765237) 122 mg/dL 70-110 H Lab Interpretation (test code = 82644-2) [facility]GLU[facility]CA2+2023-04-03 03:18:29* Test Item Value Reference Range Interpretation Comme nts PH (test code = 2) 7.33 7.35-7.45 L PCO2 (test code = 6334472610) 33 See_Comment L [Automated messa ge] The system which generated this result transmitted reference range: 35 - 45 mmHg. The reference range was not used to interpret this result as normal/abnormal. PO2 (test code = 2865249970) 182 See_Comment H [Automated messa ge] The system which generated this result transmitted reference range: 80 - 100 mmHg. The reference range was not used to interpret this result as normal/abnormal. HCO3 (test code = 2917862783) 17 See_Comment L [Automated messa ge] The system which generated this result transmitted reference range: 22 - 26 mEq/L. The reference range was not used to interpret this result as normal/abnormal. BE (test code = 1629968963) -7.9 See_Comment L [Automated messa ge] The system which generated this result transmitted reference range: -3.0 - 3.0 mEq/L. The reference range was not used to interpret this result as normal/abnormal. THB (test code = 8094563573) 11.1 g/dL 12.0-16.0 L %O2HB (test code = 3733685300) 98.5 % 94.0-99.0 %COHB ART (test code = 5988411281) 0.1 % 0.0-1.5 %METHB ART (test code = 6092282108) 0.0 % 0.4-1.5 L VOL%O2 ART (test code = 5617481077) 15.8 % 15.0-23.0 QUES NA (test code = 4538601239) 135 mmol/L 135-145 K+ (test code = 5289877541) 4.5 mmol/L 3.5-5.0 AC CA IONZ (test code = 3499858914) 4.50 mg/dL 4.50-5.30 GLUCOSE (test code = 5703917199) 122 mg/dL 70-110 H Lab Interpretation (test code = 23074-0) [facility]GLU[facility]CA2+[facility]23-[facility]-03 03:18:09* Test Item Value Reference Range Interpretation Comme nts PH (test code = 2) 7.28 7.35-7.45 L PCO2 (test code = 6745422123) 36 See_Comment [Automated messa ge] The system which generated this result transmitted reference range: 35 - 45 mmHg. The reference range was not used to interpret this result as normal/abnormal. PO2 (test code = 0219376206) 221 See_Comment H [Automated messa ge] The system which generated this result transmitted reference range: 80 - 100 mmHg. The reference range was not used to interpret this result as normal/abnormal. HCO3 (test code = 9894542573) 17 See_Comment L [Automated messa ge] The system which generated this result transmitted reference range: 22 - 26 mEq/L. The reference range was not used to interpret this result as normal/abnormal. BE (test code = 0994983699) -9.3 See_Comment L [Automated messa ge] The system which generated this result transmitted reference range: -3.0 - 3.0 mEq/L. The reference range was not used to interpret this result as normal/abnormal. THB (test code = 6528423093) 11.2 g/dL 12.0-16.0 L %O2HB (test code = 4558590995) 98.3 % 94.0-99.0 %COHB ART (test code = 3351672179) 0.4 % 0.0-1.5 %METHB ART (test code = 1332695844) 0.4 % 0.4-1.5 VOL%O2 ART (test code = 1831556053) 16.0 % 15.0-23.0 QUES NA (test code = 8302732284) 135 mmol/L 135-145 K+ (test code = 3929748163) 4.2 mmol/L 3.5-5.0 AC CA IONZ (test code = 0472885404) 4.60 mg/dL 4.50-5.30 GLUCOSE (test code = 4430322179) 122 mg/dL 70-110 H Lab Interpretation (test code = 86782-9) [facility]GLU[facility]CA2+[facility]23-[facility]-03 03:18:09* Test Item Value Reference Range Interpretation Comme nts PH (test code = 2) 7.28 7.35-7.45 L PCO2 (test code = 6268330839) 36 See_Comment [Automated messa ge] The system which generated this result transmitted reference range: 35 - 45 mmHg. The reference range was not used to interpret this result as normal/abnormal. PO2 (test code = 1799025730) 221 See_Comment H [Automated messa ge] The system which generated this result transmitted reference range: 80 - 100 mmHg. The reference range was not used to interpret this result as normal/abnormal. HCO3 (test code = 5083541486) 17 See_Comment L [Automated messa ge] The system which generated this result transmitted reference range: 22 - 26 mEq/L. The reference range was not used to interpret this result as normal/abnormal. BE (test code = 6777258338) -9.3 See_Comment L [Automated messa ge] The system which generated this result transmitted reference range: -3.0 - 3.0 mEq/L. The reference range was not used to interpret this result as normal/abnormal. THB (test code = 0584344870) 11.2 g/dL 12.0-16.0 L %O2HB (test code = 1917242397) 98.3 % 94.0-99.0 %COHB ART (test code = 9516169840) 0.4 % 0.0-1.5 %METHB ART (test code = 6168776782) 0.4 % 0.4-1.5 VOL%O2 ART (test code = 2011803582) 16.0 % 15.0-23.0 QUES NA (test code = 5781530353) 135 mmol/L 135-145 K+ (test code = 6198587131) 4.2 mmol/L 3.5-5.0 AC CA IONZ (test code = 3573801952) 4.60 mg/dL 4.50-5.30 GLUCOSE (test code = 9295623724) 122 mg/dL 70-110 H Lab Interpretation (test code = 55842-7) [facility]+GLU+CA2+[facility]23-[facility]-03 03:17:54* Test Item Value Reference Range Interpretation Comme nts PH (test code = 2) 7.34 7.35-7.45 L PCO2 (test code = 4650402295) 33 See_Comment L [Automated messa ge] The system which generated this result transmitted reference range: 35 - 45 mmHg. The reference range was not used to interpret this result as normal/abnormal. PO2 (test code = 2391607280) 212 See_Comment H [Automated messa ge] The system which generated this result transmitted reference range: 80 - 100 mmHg. The reference range was not used to interpret this result as normal/abnormal. HCO3 (test code = 6145433114) 17 See_Comment L [Automated messa ge] The system which generated this result transmitted reference range: 22 - 26 mEq/L. The reference range was not used to interpret this result as normal/abnormal. BE (test code = 3340787239) -7.5 See_Comment L [Automated messa ge] The system which generated this result transmitted reference range: -3.0 - 3.0 mEq/L. The reference range was not used to interpret this result as normal/abnormal. THB (test code = 4367266521) 11.3 g/dL 12.0-16.0 L %O2HB (test code = 4848412934) 97.8 % 94.0-99.0 %COHB ART (test code = 2682083827) 1.3 % 0.0-1.5 %METHB ART (test code = 0222906984) 0.3 % 0.4-1.5 L VOL%O2 ART (test code = 1125904190) 16.0 % 15.0-23.0 QUES NA (test code = 2062895973) 134 mmol/L 135-145 L K+ (test code = 5907920051) 4.6 mmol/L 3.5-5.0 AC CA IONZ (test code = 1844876827) 4.50 mg/dL 4.50-5.30 GLUCOSE (test code = 0881269292) 131 mg/dL 70-110 H Lab Interpretation (test code = 42894-9) [facility]+GLU+CA2+[facility]23-[facility]-03 03:17:54* Test Item Value Reference Range Interpretation Comme nts PH (test code = 2) 7.34 7.35-7.45 L PCO2 (test code = 5950812548) 33 See_Comment L [Automated messa ge] The system which generated this result transmitted reference range: 35 - 45 mmHg. The reference range was not used to interpret this result as normal/abnormal. PO2 (test code = 7090479152) 212 See_Comment H [Automated messa ge] The system which generated this result transmitted reference range: 80 - 100 mmHg. The reference range was not used to interpret this result as normal/abnormal. HCO3 (test code = 4284079223) 17 See_Comment L [Automated messa ge] The system which generated this result transmitted reference range: 22 - 26 mEq/L. The reference range was not used to interpret this result as normal/abnormal. BE (test code = 3785416917) -7.5 See_Comment L [Automated messa ge] The system which generated this result transmitted reference range: -3.0 - 3.0 mEq/L. The reference range was not used to interpret this result as normal/abnormal. THB (test code = 5206165730) 11.3 g/dL 12.0-16.0 L %O2HB (test code = 3198392167) 97.8 % 94.0-99.0 %COHB ART (test code = 0802300415) 1.3 % 0.0-1.5 %METHB ART (test code = 1815080217) 0.3 % 0.4-1.5 L VOL%O2 ART (test code = 0032947175) 16.0 % 15.0-23.0 QUES NA (test code = 5529437013) 134 mmol/L 135-145 L K+ (test code = 3403124015) 4.6 mmol/L 3.5-5.0 AC CA IONZ (test code = 3140024026) 4.50 mg/dL 4.50-5.30 GLUCOSE (test code = 4480396791) 131 mg/dL 70-110 H Lab Interpretation (test code = 45894-2) [facility]+GLU+CA2+[facility]23-[facility]-03 03:16:17* Test Item Value Reference Range Interpretation Comme nts PH (test code = 4849023628) 7.32 7.32-7.42 PCO2 ILSA (test code = 4182772216) 35 See_Comment L [Automated messa ge] The system which generated this result transmitted reference range: 41 - 51 mmHg. The reference range was not used to interpret this result as normal/abnormal. PO2 ILSA (test code = 8443898463) 232 See_Comment HH [Automated messa ge] The system which generated this result transmitted reference range: 25 - 40 mmHg. The reference range was not used to interpret this result as normal/abnormal. HCO3 ILSA (test code = 3944159168) 18 See_Comment L [Automated messa ge] The system which generated this result transmitted reference range: 24 - 28 mEq/L. The reference range was not used to interpret this result as normal/abnormal. AC VBE(BEAKER) (test code = 6977167015) -7.3 mEq/L THB ILSA (test code = 8636669782) 12.5 g/dL 12.0-16.0 %O2HB ILSA (test code = 0032985380) 97.9 % 52.0-63.0 H %COHB ILSA (test code = 5993920138) 0.9 % 0.0-1.5 %METHB ILSA (test code = 9826388900) 0.5 % 0.4-1.5 VOL%O2 ILSA (test code = 2546121899) 17.7 % 6.0-12.0 H QUES NA (test code = 0925341355) 134 mmol/L 135-145 L K+ (test code = 5760696794) 4.7 mmol/L 3.5-5.0 AC CA IONZ (test code = 1095982136) 4.80 mg/dL 4.50-5.30 GLUCOSE (test code = 6785984021) 142 mg/dL 70-110 H Lab Interpretation (test code = 11297-0) [facility]+GLU[facility]CA2+[facility]23-[facility]-03 03:16:17* Test Item Value Reference Range Interpretation Comme nts PH (test code = 5829964347) 7.32 7.32-7.42 PCO2 ILSA (test code = 5009996731) 35 See_Comment L [Automated messa ge] The system which generated this result transmitted reference range: 41 - 51 mmHg. The reference range was not used to interpret this result as normal/abnormal. PO2 ILSA (test code = 3025303830) 232 See_Comment HH [Automated messa ge] The system which generated this result transmitted reference range: 25 - 40 mmHg. The reference range was not used to interpret this result as normal/abnormal. HCO3 ILSA (test code = 4420205703) 18 See_Comment L [Automated messa ge] The system which generated this result transmitted reference range: 24 - 28 mEq/L. The reference range was not used to interpret this result as normal/abnormal. AC VBE(BEAKER) (test code = 2894217481) -7.3 mEq/L THB ILSA (test code = 2776568495) 12.5 g/dL 12.0-16.0 %O2HB ILSA (test code = 9872910093) 97.9 % 52.0-63.0 H %COHB ILSA (test code = 8388851742) 0.9 % 0.0-1.5 %METHB ILSA (test code = 7616501184) 0.5 % 0.4-1.5 VOL%O2 ILSA (test code = 6176507083) 17.7 % 6.0-12.0 H QUES NA (test code = 2767290655) 134 mmol/L 135-145 L K+ (test code = 1139768626) 4.7 mmol/L 3.5-5.0 AC CA IONZ (test code = 3690128222) 4.80 mg/dL 4.50-5.30 GLUCOSE (test code = 1822619141) 142 mg/dL 70-110 H Lab Interpretation (test code = 58916-3) [facility]+GLU+CA2+2023-04-03 03:15:31* Test Item Value Reference Range Interpretation Comme nts PH (test code = 6187946508) 7.31 7.32-7.42 L PCO2 ILSA (test code = 4170827254) 37 See_Comment L [Automated messa ge] The system which generated this result transmitted reference range: 41 - 51 mmHg. The reference range was not used to interpret this result as normal/abnormal. PO2 ILSA (test code = 6244211249) 233 See_Comment HH [Automated messa ge] The system which generated this result transmitted reference range: 25 - 40 mmHg. The reference range was not used to interpret this result as normal/abnormal. HCO3 ILSA (test code = 0702503440) 18 See_Comment L [Automated messa ge] The system which generated this result transmitted reference range: 24 - 28 mEq/L. The reference range was not used to interpret this result as normal/abnormal. AC VBE(BEAKER) (test code = 2316216283) -7.6 mEq/L THB ILSA (test code = 8996067737) 10.3 g/dL 12.0-16.0 L %O2HB ILSA (test code = 2267386790) 98.6 % 52.0-63.0 H %COHB ILSA (test code = 7188497415) 0.2 % 0.0-1.5 %METHB ILSA (test code = 5183476047) 0.2 % 0.4-1.5 L VOL%O2 ILSA (test code = 3959581866) 14.8 % 6.0-12.0 H QUES NA (test code = 8118907380) 135 mmol/L 135-145 K+ (test code = 6846937486) 3.9 mmol/L 3.5-5.0 AC CA IONZ (test code = 3513528622) 4.60 mg/dL 4.50-5.30 GLUCOSE (test code = 7782037816) 147 mg/dL 70-110 H Lab Interpretation (test code = 05199-8) [facility]+K+GLU+CA2+2023-04-03 03:15:31* Test Item Value Reference Range Interpretation Comme nts PH (test code = 4429382364) 7.31 7.32-7.42 L PCO2 ILSA (test code = 3892073425) 37 See_Comment L [Automated messa ge] The system which generated this result transmitted reference range: 41 - 51 mmHg. The reference range was not used to interpret this result as normal/abnormal. PO2 ILSA (test code = 4295601943) 233 See_Comment HH [Automated messa ge] The system which generated this result transmitted reference range: 25 - 40 mmHg. The reference range was not used to interpret this result as normal/abnormal. HCO3 ILSA (test code = 4095964794) 18 See_Comment L [Automated messa ge] The system which generated this result transmitted reference range: 24 - 28 mEq/L. The reference range was not used to interpret this result as normal/abnormal. AC VBE(BEAKER) (test code = 6442129749) -7.6 mEq/L THB ILSA (test code = 8805027029) 10.3 g/dL 12.0-16.0 L %O2HB ILSA (test code = 6091180364) 98.6 % 52.0-63.0 H %COHB ILSA (test code = 7821706367) 0.2 % 0.0-1.5 %METHB ILSA (test code = 5767182333) 0.2 % 0.4-1.5 L VOL%O2 ILSA (test code = 5761833778) 14.8 % 6.0-12.0 H QUES NA (test code = 5906088895) 135 mmol/L 135-145 K+ (test code = 9131158705) 3.9 mmol/L 3.5-5.0 AC CA IONZ (test code = 2247959146) 4.60 mg/dL 4.50-5.30 GLUCOSE (test code = 7750734036) 147 mg/dL 70-110 H Lab Interpretation (test code = 46752-8) Abnormal [facility] (for use with Heparin Infusion)2023-04-02 19:46:45* Test Item Value Reference Range Interpretation Comme [facility] APTT Patient (test code = 3173-2) 23 See_Comment L [Automated messa ge] The system which generated this result transmitted reference range: 26 - 36 Seconds. The reference range was not used to interpret this result as normal/abnormal. Lab Interpretation (test code = 35745-5) Abnormal [facility] (for use with Heparin Infusion)2023-04-02 19:46:45* Test Item Value Reference Range Interpretation Comme [facility] APTT Patient (test code = 3173-2) 23 See_Comment L [Automated [employer] ge] The system which generated this result transmitted reference range: 26 - 36 Seconds. The reference range was not used to interpret this result as normal/abnormal. Lab Interpretation (test code = 36491-1) [facility] 16:37:34* Test Item Value Reference Range Interpretation Comme [facility] Fibrinogen (test code = 1709696214) 265 mg/dL 214-470 Lab Interpretation (test cod e = 08007-4) [facility]* Test Item Value Reference Range Interpretation Comme nts Fibrinogen (test code = 1802536886) 265 mg/dL 214-470 Lab Interpretation (test cod e = 76263-7) Normal [facility] (08634)2023-04-02 13:09:45* Test Item Value Reference Range Interpretation Comme nts NA (test code = 4061517410) 134 mmol/L 135-145 L K (test code = 6515378656) 3.4 mmol/L 3.5-5.0 L CL (test code = 4891431680) 107 mmol/L 98-108 CO2 TOTAL (test code = 7985174313) 16 mmol/L 23-31 L AGAP (test code = 9370591019) 11 2-16 BUN (test code = 3267599435) 13 mg/dL 7-23 GLUCOSE (test code = 5405107328) 152 mg/dL 70-110 H CREATININE (test code = 2482178517) 0.91 mg/dL 0.50-1.04 TOTAL BILI (test code = 4077575758) 0.5 mg/dL 0.1-1.1 CALCIUM (test code = 2165641302) 8.0 mg/dL 8.6-10.6 L T PROTEIN (test code = 3016866361) 6.5 g/dL 6.3-8.2 ALBUMIN (test code = 2215469886) 3.2 g/dL 3.5-5.0 L ALK PHOS (test code = 6825842230) 80 U/L 34-122 ALTv (test code = 1742-6) 17 U/L 5-35 AST(SGOT) (test code = 9837876135) 27 U/L 13-40 eGFR (test code = 78208-9) 78.0 mL/min/1.73m2 CKD-EPI eGFR (2020). Assuming creatinine has been stable day-to-day for at least three months, the eGFR indicates Category G2 (60 - 89 mL/min/1.73 m2) Lab Interpretation (test code = 95955-0) [facility]normal [facility] Texas[facility]th[facility] / MAX0708-44-79 13:07:04* Test Item Value Reference Range Interpretation Comme nts PROTIME PATIENT (test code = 5964-2) 14.4 See_Comment [Automated Prism Microwave[employer] ge] The system which generated this result transmitted reference range: 12.0 - 14.7 Seconds. The reference range was not used to interpret this result as normal/abnormal. INR (test code = 6301-6) 1.2 Normal INR <1.1; Warfarin Therapeutic range 2.0 to 3.0 or 2.5 to 3.5, depending upon the indications. Lab Interpretation (test code = 02263-2) Normal [facility] WITH ZGXL2446-27-92 12:54:24* Test Item Value Reference Range Interpretation Comme nts WBC (test code = 6690-2) 11.35 See_Comment H [Automated messa ge] The system which generated this result transmitted reference range: 4.30 - 11.10 10*3/?L. The reference range was not used to interpret this result as normal/abnormal. RBC (test code = 789-8) 3.77 See_Comment L [Automated messa ge] The system which generated this result transmitted reference range: 3.93 - 5.25 10*6/?L. The reference range was not used to interpret this result as normal/abnormal. HGB (test code = 718-7) 12.8 g/dL 11.6-15.0 HCT (test code = 4544-3) 36.9 % 35.7-45.2 MCV (test code = 787-2) 97.9 fL 80.6-95.5 H MCH (test code = 785-6) 34.0 pg 25.9-32.8 H MCHC (test code = 786-4) 34.7 g/dL 31.6-35.1 RDW-SD (test code = 05919-9) 46.4 fL 39.0-49.9 RDW-CV (test code = 788-0) 13.1 % 12.0-15.5 PLT (test code = 777-3) 333 See_Comment [Automated messa ge] The system which generated this result transmitted reference range: 166 - 358 10*3/?L. The reference range was not used to interpret this result as normal/abnormal. MPV (test code = 26213-1) 9.5 fL 9.5-12.9 NRBC/100 WBC (test code = 4822468935) 0.0 See_Comment [Automated me ssage] The system which generated this result transmitted reference range: 0.0 - 10.0 /100 WBCs. The reference range was not used to interpret this result as normal/abnormal. NRBC x10^3 (test code = 0307937550) See_Comment [Automated messa ge] The system which generated this result transmitted reference range: 10*3/?L. The reference range was not used to interpret this result as normal/abnormal. GRAN MAT (NEUT) % (test code = 770-8) 73.8 % IMM GRAN % (test code = 6350962887) 0.70 % LYMPH % (test code = 736-9) 20.2 % MONO % (test code = 5905-5) 4.0 % EOS % (test code = 713-8) 0.9 % BASO % (test code = 706-2) 0.4 % GRAN MAT x10^3(ANC) (test code = 2108621054) 8.38 10*3/uL 1.88-7.09 H IMM GRAN x10^3 (test code = 1537687641) 0.08 10*3/uL 0.00-0.06 H LYMPH x10^3 (test code = 731-0) 2.29 10*3/uL 1.32-3.29 MONO x10^3 (test code = 742-7) 0.45 10*3/uL 0.33-0.92 EOS x10^3 (test code = 711-2) 0.10 10*3/uL 0.03-0.39 BASO x10^3 (test code = 704-7) 0.05 10*3/uL 0.01-0.07 Lab Interpretation (test code = 48638-2) [facility]normal [facility] LQHJ7619-00-04 19:03:00* Test Item Value Reference Range Interpretation Comme nts POCT PREG (test code = 1605) Negative On board controls acceptable with C Line (test code = 3574) Yes POCT PREG LOT # (test code = 3575) [id number] POCT PREG TEST DATE ( test code = 3576) 07-22-2024 Lab Interpretation (test cod e = 21694-3) Normal [facility] TexasLIPASE, CGUEY2743-82-95 16:20:36* Test Item Value Reference Range Interpretation Comme nts LIPASE (test code = 1436499811) 172 U/L 0-220 Lab Interpretation (test cod e = 48680-1) Normal [facility] TexasTROPONIN Q0326-11-10 18:37:59* Test Item Value Reference Range Interpretation Comme nts TROPONIN I (test code = 8935761591) 0.004 ng/mL <=0.034 COLLIN (test code = COLLIN) Reference (Normal) Range (defined by the 99th percentile reference limit): <= 0.034 ng/mL Note: Cardiac troponin begins to rise 3-4 hours after the onset of ischemia. Repeat in 4-6 hours if the sample was drawn within 3-4 hours of the onset of the symptom and found normal. Diagnosis of myocardial injury is made with acute changes in cTn concentrations with at least one serial sample above the 99th percentile upper reference limit (URL), taken together with the patient's clinical presentation. Biotin has been reported to cause a negative bias, interpret results relative to patient's use of biotin. Lab Interpretation (test code = 18462-5) Normal [facility] TexasN-TERMINAL UJK-TWH2531-00-30 18:36:58* Test Item Value Reference Range Interpretation Comme nts NT-proBNP (test code = 24626-6) 383 pg/mL <=125 COLLIN (test code = COLLIN) Result Indeterminate-Consid er causes of NT-proBNP elevation other than Heart failure such as acute coronary syndrome, pulmonary embolism, pulmonary hypertension, sepsis, stroke, and renal dysfunction. Lab Interpretation (test code = 07125-1) Abnormal [facility] TexasMAGNESIUM2023-09-30 18:31:50* Test Item Value Reference Range Interpretation Comme nts MAGNESIUM (test code = 3555361527) 1.8 mg/dL 1.7-2.4 Lab Interpretation (test cod e = 01896-5) Normal [facility] TexasCOMP. METABOLIC PANEL (38071)2023-02-10 18:31:40* Test Item Value Reference Range Interpretation Comme nts NA (test code = 6415126154) 139 mmol/L 135-145 K (test code = 6331365352) 2.9 mmol/L 3.5-5.0 LL CL (test code = 0601147729) 103 mmol/L 98-108 CO2 TOTAL (test code = 3482182778) 27 mmol/L 23-31 AGAP (test code = 4703700489) 9 2-16 BUN (test code = 1916613367) 12 mg/dL 7-23 GLUCOSE (test code = 1461971427) 80 mg/dL 70-110 CREATININE (test code = 0859358762) 0.82 mg/dL 0.50-1.04 TOTAL BILI (test code = 4553515771) 0.2 mg/dL 0.1-1.1 CALCIUM (test code = 8648346725) 8.6 mg/dL 8.6-10.6 T PROTEIN (test code = 0351735283) 6.5 g/dL 6.3-8.2 ALBUMIN (test code = 0542468946) 3.3 g/dL 3.5-5.0 L ALK PHOS (test code = 5262556764) 72 U/L 34-122 ALTv (test code = 1742-6) 19 U/L 5-35 AST(SGOT) (test code = 2353624894) 24 U/L 13-40 eGFR (test code = 8483598906) 74.4 mL/min/1.73m2 COLLIN (test code = COLLIN) Association of Glomerular Filtration Rate (GFR) and Staging of Kidney Disease* + --+ --+ ------+| GFR (mL/min/1.73 m2) ?| With Kidney Damage ?| ?Without Kidney Damage+ --------+ --------+ +| ?>90 ?| ?Stage one ?| ? Normal ?+ ---+ ---+ -------+| ?60-89 ?| ?Stage two ?| ? Decreased GFR ? + --+ --+ ------+| ?30-59 ?| ?Stage three ?| ? Stage three ? + --+ --+ ------+| ?15-29 ?| ?Stage four ? | ? Stage four ?+ ---+ ---+ -------+| ?<15 (or dialysis) ? ?| ?Stage five ? | ? Stage five ?+ ---+ ---+ -------+ *Each stage assumes the associated GFR level has been in effect for at least three months. ?Stages 1 to 5, with or without kidney disease, indicate chronic kidney disease. Notes: Determination of stages one and two (with eGFR >59mL/min/1.73 m2) requires estimation of kidney damage for at least three months as defined by structural or functional abnormalities of the kidney, manifested by either:Pathological abnormalities or Markers of kidney damage (including abnormalities in the composition of the blood or urine or abnormalities in imaging tests). Lab Interpretation (test code = 09663-8) Abnormal [facility] WITH MNKV1224-00-04 17:52:40* Test Item Value Reference Range Interpretation Comme nts WBC (test code = 6690-2) 8.97 See_Comment [Automated Prism [employer]] The system which generated this result transmitted reference range: 4.30 - 11.10 10*3/?L. The reference range was not used to interpret this result as normal/abnormal. RBC (test code = 789-8) 3.41 See_Comment L [Automated Prism [employer]] The system which generated this result transmitted reference range: 3.93 - 5.25 10*6/?L. The reference range was not used to interpret this result as normal/abnormal. HGB (test code = 718-7) 12.1 g/dL 11.6-15.0 HCT (test code = 4544-3) 35.4 % 35.7-45.2 L MCV (test code = 787-2) 103.8 fL 80.6-95.5 H MCH (test code = 785-6) 35.5 pg 25.9-32.8 H MCHC (test code = 786-4) 34.2 g/dL 31.6-35.1 RDW-SD (test code = 42994-2) 53.7 fL 39.0-49.9 H RDW-CV (test code = 788-0) 14.0 % 12.0-15.5 PLT (test code = 777-3) 307 See_Comment [Automated [employer]] The system which generated this result transmitted reference range: 166 - 358 10*3/?L. The reference range was not used to interpret this result as normal/abnormal. MPV (test code = 30918-5) 9.9 fL 9.5-12.9 NRBC/100 WBC (test code = 7376910229) 0.0 See_Comment [Automated me ssage] The system which generated this result transmitted reference range: 0.0 - 10.0 /100 WBCs. The reference range was not used to interpret this result as normal/abnormal. NRBC x10^3 (test code = 9010409965) See_Comment [Automated messa ge] The system which generated this result transmitted reference range: 10*3/?L. The reference range was not used to interpret this result as normal/abnormal. GRAN MAT (NEUT) % (test code = 770-8) 67.0 % IMM GRAN % (test code = 5897567056) 0.40 % LYMPH % (test code = 736-9) 25.0 % MONO % (test code = 5905-5) 5.4 % EOS % (test code = 713-8) 1.6 % BASO % (test code = 706-2) 0.6 % GRAN MAT x10^3(ANC) (test code = 2440880474) 6.02 10*3/uL 1.88-7.09 IMM GRAN x10^3 (test code = 4758739893) 0.04 10*3/uL 0.00-0.06 LYMPH x10^3 (test code = 731-0) 2.24 10*3/uL 1.32-3.29 MONO x10^3 (test code = 742-7) 0.48 10*3/uL 0.33-0.92 EOS x10^3 (test code = 711-2) 0.14 10*3/uL 0.03-0.39 BASO x10^3 (test code = 704-7) 0.05 10*3/uL 0.01-0.07 Lab Interpretation (test code = 45616-0) [facility]normal [facility]PO[facility] GLUCOSE (AUTOMATED)2023-01-02 18:53:56* Test Item Value Reference Range Interpretation Comme nts POCT GLU (test code = 1938840729) 96 mg/dL 70-110 Lab Interpretation (test cod e = 33705-4) Normal [facility]2023-07-13 01:01:42* Test Item Value Reference Range Interpretation Comme nts MAGNESIUM (test code = 2085208543) 1.6 mg/dL 1.7-2.4 L Lab Interpretation (test cod e = 01963-2) Abnormal [facility] TexasPHOSPHORUS2023-07-13 01:01:42* Test Item Value Reference Range Interpretation Comme nts PHOSPHORUS (test code = 6571264422) 2.5 mg/dL 2.5-5.0 Lab Interpretation (test cod e = 41267-9) Normal [facility]2023-07-13 01:01:42* Test Item Value Reference Range Interpretation Comme nts MAGNESIUM (test code = 3338856082) 1.6 mg/dL 1.7-2.4 L Lab Interpretation (test cod e = 07076-9) Abnormal [facility]PH[facility]2023-07-13 01:01:42* Test Item Value Reference Range Interpretation Comme nts PHOSPHORUS (test code = 8665279271) 2.5 mg/dL 2.5-5.0 Lab Interpretation (test cod e = 61070-5) Normal [facility] TexasFibrinogen2023-07-12 11:25:37* Test Item Value Reference Range Interpretation Comme nts Fibrinogen (test code = 0793161086) 264 mg/dL 167-453 Lab Interpretation (test cod e = 91690-0) Normal [facility] TexasFibrinogen2023-07-12 11:25:37* Test Item Value Reference Range Interpretation Comme nts Fibrinogen (test code = 0996849261) 264 mg/dL 167-453 Lab Interpretation (test cod e = 77954-4) Normal [facility] TexasType and Screen - STAT Pqrydat4118-50-52 02:20:00* Test Item Value Reference Range Interpretation Comme nts ABO & RH (test code = 20) O POSITIVE IAT (test code = 1185) Negative [facility] TexasType and Screen - STAT Qbngttt9636-58-05 02:20:00* Test Item Value Reference Range Interpretation Comme nts ABO & RH (test code = 20) O POSITIVE IAT (test code = 1185) Negative [facility] TexasComplete Blood Count Auto Wtzc6927-05-49 11:37:00* Test Item Value Reference Range Interpretation Comme nts White Blood Count (test code = WBCT) 9.4 x10 3/uL 4.8-10.8 N Red Blood Count (test code = RBC) 4.36 x10 6/uL 4.20-5.50 N Hemoglobin (test code = HGBT) 15.2 g/dL 12.0-16.0 N Hematocrit (test code = HCTT) 44.9 % 35.0-47.0 N Mean Corpuscular Volume (shira t code = MCV) 103.0 fL 80.0-95.0 H Mean Corpuscular Hemoglobin (test code = MCH) 34.9 pg 26.0-32.0 H Mean Corpuscular HGB Conc (t est code = MCHC) 33.9 g/dL 31.0-36.0 N Red Cell Distribution Width (test code = RDW) 13.4 % 11.5-14.5 N Platelet Count (test code = PLTT) 340 x10 3/uL 140-440 N Mean Platelet Volume (test c ode = MPV) 9.8 fL 7.5-11.2 N Immature Granulocytes % (Aut o) (test code = IMMGRAN%) 0.3 % Neutrophils % (Auto) (test c ode = NE%) 69.6 % Lymphocytes % (Auto) (test c ode = LY%) 22.5 % Monocytes % (Auto) (test cod e = MO%) 5.3 % Eosinophils % (Auto) (test c ode = EO%) 1.7 % Basophils % (Auto) (test cod e = BA%) 0.6 % Immature Granulocytes # (Aut o) (test code = IMMGRAN#) 0.03 x10 3/uL Neutrophils # (Auto) (test c ode = NE#) 6.5 x10 3/uL 2.7-7.3 N Lymphocytes # (Auto) (test c ode = LY#) 2.1 x10 3/uL 0.8-3.5 N Monocytes # (Auto) (test cod e = MO#) 0.5 x10 3/uL 0.3-0.9 N Eosinophils # (Auto) (test c ode = EO#) 0.2 x10 3/uL 0.0-0.3 N Basophils # (Auto) (test cod e = BA#) 0.1 x10 3/uL 0.0-0.1 N nRBC Abs (test code = NRBCA) 0 10>3/mcL nRBC Pct (test code = NRBCP) 0 % Comprehensive Metabolic Jqoog9525-49-29 11:37:00* Test Item Value Reference Range Interpretation Comme nts SODIUM (test code = NA) 134 mmol/L 136-145 L Potassium,K (test code = K) 3.9 mmol/L 3.5-5.1 N Chloride (test code = CL) 103 mmol/L 98-107 N Carbon Dioxide (test code = CO2) 26 mmol/L 21-32 N Anion Gap (test code = GAP) 5 mmol/L 7-16 L Blood Urea Nitrogen (test co de = BUN) 11 mg/dL 7-18 N Creatinine (test code = CREATT) 0.8 mg/dL 0.6-1.0 N Creatinine Clr Calc Pharmacy (test code = CRCLPHA) 107.99 mL/min Estimated GFR ( Ameri ca (test code = EGFRAA) > 60 mL/min/1.73m2 Estimated GFR (Non Afr Ameri ca (test code = EGFRNAA) > 60 mL/min/1.73m2 BUN/Creatinine Ratio (test c ode = BCRATIO) 14 Glucose (test code = GLU) 90 mg/dL 74-106 N Calcium (test code = CA) 8.9 mg/dL 8.5-10.1 N Bilirubin,Total (test code = BILIT) 0.7 mg/dL 0.2-1.0 N Aspartate Amino Transferase (test code = AST) 16 IU/L 15-37 N Alanine Aminotransferase (te st code = ALT) 19 IU/L 12-78 N Total Protein (test code = TP) 7.2 g/dL 6.4-8.2 N Albumin Level (test code = ALB) 3.5 g/dL 3.4-5.0 N Globulin (test code = GLOB) 4 Albumin/Globulin Ratio (test code = AGRATIO) 0.9 ratio 1.2-3.0 L Alkaline Phosphatase (test c ode = ALP) 92 IU/L 50-136 N HCG, Serum Qual (LAB)2021-10-11 11:37:00* Test Item Value Reference Range Interpretation Comme nts HCG, Serum Qual (LAB) (test code = HCGQ) Negative Negative Complete Blood Count Auto Imes1512-32-50 09:39:00* Test Item Value Reference Range Interpretation Comme nts White Blood Count (test code = WBCT) 7.8 x10 3/uL 4.8-10.8 N Red Blood Count (test code = RBC) 4.37 x10 6/uL 4.20-5.50 N Hemoglobin (test code = HGBT) 15.1 g/dL 12.0-16.0 N Hematocrit (test code = HCTT) 46.0 % 35.0-47.0 N Mean Corpuscular Volume (shira t code = MCV) 105.3 fL 80.0-95.0 H Mean Corpuscular Hemoglobin (test code = MCH) 34.6 pg 26.0-32.0 H Mean Corpuscular HGB Conc (t est code = MCHC) 32.8 g/dL 31.0-36.0 N Red Cell Distribution Width (test code = RDW) 13.2 % 11.5-14.5 N Platelet Count (test code = PLTT) 326 x10 3/uL 140-440 N Mean Platelet Volume (test c ode = MPV) 10.1 fL 7.5-11.2 N Immature Granulocytes % (Aut o) (test code = IMMGRAN%) 0.4 % Neutrophils % (Auto) (test c ode = NE%) 61.5 % Lymphocytes % (Auto) (test c ode = LY%) 25.3 % Monocytes % (Auto) (test cod e = MO%) 6.4 % Eosinophils % (Auto) (test c ode = EO%) 5.8 % Basophils % (Auto) (test cod e = BA%) 0.6 % Immature Granulocytes # (Aut o) (test code = IMMGRAN#) 0.03 x10 3/uL Neutrophils # (Auto) (test c ode = NE#) 4.8 x10 3/uL 2.7-7.3 N Lymphocytes # (Auto) (test c ode = LY#) 2.0 x10 3/uL 0.8-3.5 N Monocytes # (Auto) (test cod e = MO#) 0.5 x10 3/uL 0.3-0.9 N Eosinophils # (Auto) (test c ode = EO#) 0.5 x10 3/uL 0.0-0.3 H Basophils # (Auto) (test cod e = BA#) 0.1 x10 3/uL 0.0-0.1 N nRBC Abs (test code = NRBCA) 0 10>3/mcL nRBC Pct (test code = NRBCP) 0 % HCG, Serum Qual (LAB)2021-08-11 09:39:00* Test Item Value Reference Range Interpretation Comme nts HCG, Serum Qual (LAB) (test code = HCGQ) Negative Negative Comprehensive Metabolic Trwwh0389-38-21 09:39:00* Test Item Value Reference Range Interpretation Comme nts SODIUM (test code = NA) 135 mmol/L 136-145 L Potassium,K (test code = K) 4.0 mmol/L 3.5-5.1 N Chloride (test code = CL) 106 mmol/L 98-107 N Calcium (test code = CA) 8.7 mg/dL 8.5-10.1 N Albumin Level (test code = ALB) 3.3 g/dL 3.4-5.0 L Carbon Dioxide (test code = CO2) 26 mmol/L 21-32 N Anion Gap (test code = GAP) 3 mmol/L 7-16 L Blood Urea Nitrogen (test co de = BUN) 14 mg/dL 7-18 N Creatinine (test code = CREATT) 0.7 mg/dL 0.6-1.0 N Creatinine Clr Calc Pharmacy (test code = CRCLPHA) 123.42 mL/min Estimated GFR ( Ameri ca (test code = EGFRAA) > 60 mL/min/1.73m2 Estimated GFR (Non Afr Ameri ca (test code = EGFRNAA) > 60 mL/min/1.73m2 BUN/Creatinine Ratio (test c ode = BCRATIO) 20 Glucose (test code = GLU) 82 mg/dL 74-106 N Bilirubin,Total (test code = BILIT) 0.3 mg/dL 0.2-1.0 N Aspartate Amino Transferase (test code = AST) 12 IU/L 15-37 L Alanine Aminotransferase (te st code = ALT) 15 IU/L 12-78 N Total Protein (test code = TP) 6.9 g/dL 6.4-8.2 N Globulin (test code = GLOB) 4 Albumin/Globulin Ratio (test code = AGRATIO) 0.8 ratio 1.2-3.0 L Alkaline Phosphatase (test c ode = ALP) 71 IU/L 50-136 N Smear Xwjisk8593-06-79 09:39:00* Test Item Value Reference Range Interpretation Comme nts RBC Morphology (test code = RM) Abnormal Normal Anisocytosis (test code = ANISO) 1+ None Seen A Macrocytosis (test code = MACROC) 2+ None Seen A XR chest [facility] G[facility]ENSedic[address]nicole Nixon [facility] [place], [place] [phone] Patient Name: JUAN RAMÍREZ Medical Record#: [id number] Address: [address] [place] [address] City/State/Zip: [place] [address]: Blane Fu DO Insurance: [employer] /Age/Sex: 1975/46/F Self Pay Admit/Reg Date: 10/11/[address]: Blane Fu DO Location: [facility]/ PCP: Sun Salcido NP Date of Service: 10/11/21 Order (s): XR chest 2V CPT Code: 97368 Report Number: [id number] Reason for Exam: rt rotator c uff repair with acromioplasty Clinical history: Preoperative respiratory examination for right rotator cuff repair with acromioplasty. History of tobacco use COMPARISON:08/11/2021 X-ray chest 2 viewsCardiomediastinal structures are within normal limits. No pleural fluid or pulmonary infiltrates are identified. The bony architecture appears intact, where adequately seen. Mild kyphodextroscoliosisand spondylo-arthropathy changes of the thoracic spine is demonstrated. IMPRESSION: No active cardiopulmonary process is identified. Dictated By: Matias Keene MD 10/11/21 120 Signed By: Matias Keene MD 10/11/21 120 TD/TT: 10/11/21 120 Tech: [facility] cc: [id number]; [id number]* Sun Salcido NP; NED Rachel chest [facility]ENSedical [place] [address] [address] Nixon [facility]. [place], [place] [phone] Patient Name: JUAN RAMÍREZ Medical Record#: [id number] Address: [facility] [address] City/State/Zip: [place] [address]: Blane Fu DO Insurance: [email or web address] [facility] /Age/Sex: 1975/46/F Self Pay Admit/Reg Date: 08/11/[address]: Amari Menard MD Location: SETPRE/ PCP: Sun Salcido NP Date of Service: 08/11/21 Order (s): XR chest 2V CPT Code: 75737 Report Number: [id number] Reason for Exam: rt rotator cuff repair CHEST 2 VIEW REASON FOR STUDY: Preoperative respiratory evaluation for right rotator cuff repair COMPARISON: None available. TECHNIQUE: AP and lateral views of the chest were obtained. COMMENTS: The lungs are clear. There are no pleural abnormalities. The heart and mediastinal contours arewithin normal limits. The bony thorax is intact. IMPRESSION: No radiographically active cardiopulmonary disease. Dictated By: Gregg Baker MD 08/11/21 1042 Signed By: Gregg Baker MD 08/11/21 1042 TD/TT: 08/11/21 1042 Tech: MAN05 cc: [id number]; [id number]* Sun Salcido NP; Amari Menard MD Notes Date/Time Note Provider Source 2023-06-14 15:36:47 SIZvp7LsQr5iWEdjPZm2 gk51k+zVHtdLGO Thf3x/jD2hLS0VhuuCU2tsNDJuS4cx8550 -02-01T15:36:47 Returned via fax. Yakelin Singh LVN 06/14/2023 3:37 PM 96015-6Pibzbdlqn encounter BdewTA7519-08-37J71:37:08Telephone encounter NoteTXT1.2.840.796313.1.13.104.2.7 .2.901524|[id number] for patient uwum25196-4CkqiAFVERSFJDBGKxrevwax d C-CDA narrative text[id number] 36HPQWICKYCIXEGOMSRZZXOH9690-93-52 T15:37:081.2.840.491463.1.72.3.15| 1.2.840.489430.1.13.104.2.7.2.7278 [id number] [facility] 2023-06-14 15:27:51 497OKTxP7q+LoxeP5W7Z PRcTp+ROployFG GsfCXtaZBNnnNilV4RIuDzwXTJ73XA0170 -02-01T15:27:51 Received physician order and plan of care for review and MD signature. 45462-3Ofhteuolo encounter UnxuZJ0775-65-53W49:35:55Telephone encounter NoteTXT1.2.840.758542.1.13.104.2.7 .2.040016|[id number] for patient uqpz48025-1EmryIXTWICBRHBOUpyhrmvl d C-CDA narrative text[id number] 22ULYCUERQNWSGLVFBZLYFJD1549-34-01 T15:35:551.2.840.985070.1.72.3.15| 1.2.840.728378.1.13.104.2.7.2.7278 [id number] [facility] 2023-05-25 15:12:08 mVxrSI538Tg593Llf+B+ aG3FLxm19cMJ3r t+GTOy6JGB3bWqqHttTYsj4O0iVJ7h7959 -01-12T15:12:08 PA completed on [email or web address] on approval/denial from [facility]. 47250-4Ohzytpoqz encounter TdlrOV8212-31-59V54:22:15Telephone encounter NoteTXT1.2.840.317852.1.13.104.2.7 .2.279598|[id number] for patient soaj83744-4DnoeGLKIHLVXXHIYcpisfql d C-CDA narrative Scan•Jour[id number] 68OAJATZVKSDXPJHEMKJHAHC7251-46-63 T15:22:151.2.840.032201.1.72.3.15| 1.2.840.920464.1.13.104.2.7.2.7278 [id number] [facility] 2023-05-24 14:30:00 5M7s72G0MXeTDCPRUw8h 1RkLf16xEgi/Io dPJitExIhQ3rl5KFC9wLn7YXatgFr64826 -05-24T14:30:00Addended by: LISHA RITTER on: 06/01/2023 07:10 PMModules accepted: Level of Service 91230-8Kvsxllif CxebozhkOS0697-44-26I35:10:03Adden dum DocumentTXT1.2.840.900606.1.13.104 .2.7.2.729280|[id number] e for patient ogsr67470-4PzsvRVOWALFDUDJVtihnlnc d C-CDA narrative [place] [id number] 06MAJUYXLWGHSQGQOXUHCTYI6723-94-20 T19:10:031.2.840.681552.1.72.3.15| 1.2.840.874165.1.13.104.2.7.2.7278 [id number] [facility] 2023-05-21 12:29:19 yfIZWVPRsuZbuDEDYjJb eE1y7j4j3mwmRg XBTiX8olumsHLj03jIPJlGhYVHlznO9712 -01-08T12:29:19 Juan Ramírez is a 48 year old femalePatient called in with [facility] requesting is it okay that she does a wet to dry on the patient she had a wound vac and is requesting if she can do a wet to dry please advise . Nurse call back number [phone] 16967-1Nlyykdyvn encounter ByfpVN2348-71-29Z56:32:37Telephone encounter NoteTXT1.2.840.363449.1.13.104.2.7 .2.184282|[id number] for patient onov36775-7ThgvBGCUWQRBOUDZxhjwken d C-CDA narrative [id number] [address] Jn[id number] 56PFGXEAGSGUFZYAERZIYZGB8237-64-86 T12:32:371.2.840.792281.1.72.3.15| 1.2.840.242677.1.13.104.2.7.2.7278 79_[id number] Claribel Goodwin [facility] 2023-05-21 09:58:15 QbjZ1t6bFY7CvvIC00+l C4/V2LDOxdlWfK oo5u3g8NmJ+BwAf3GcKDdKY4vmSGJ83675 T09:58:15 Juan Ramírez is a 48 year old femaleSuniversity of michigan health w/[facility] is calling to request orders be fx'd; she's awaiting the provider's signature.Please fx and f/u with a phone call once the orders have been signed and fx'd.Cailin, Ccu# [phone] signed by Zulema Oreilly at 05/21/2023 10:01 AM LID43599-2Njdjodcyv encounter TvivHN6676-95-22O90:01:03Telephone encounter NoteTXT1.2.840.915874.1.13.104.2.7 .2.052443|[id number] for patient fouu28396-6PztrGAIYLPDUWTHIyuqqskr d C-CDA narrative [id number] 71SOGNCRKOCPJTAGRCSQLOBW4381-40-62 T10:01:031.2.840.988632.1.72.3.15| 1.2.840.859331.1.13.104.2.7.2.7278 79_[id number] [facility] 13:07:23 iANwFDO8Ij1LPs0tWhaP MU6e7yMcsqufL9 WJ575a+RJ/8jFC0WZxYFfHsJ87IU575653 -01-06T13:07:23 Patient given discharge instructions on upper limb pain, low potassium level. Pt given prescription X 1 for zofran. Pt advised to follow up with pcp. 95070-3Dycnlfswo department SlugMW4117-44-87U71:08:01Emergency department NoteTXT1.2.840.929722.1.13.104.2.7 .2.542341|[id number] for patient otfl89440-3CqzsYKELVDMJFELOefwremo d C-CDA narrative text[id number] 81VLBETHWHFKRPWGRWHECMYY8800-24-89 T13:08:011.2.840.839569.1.72.3.15| 1.2.840.998607.1.13.104.2.7.2.7278 79_[id number] [facility] 2023-05-19 08:50:56 OcG4Vdxr9nZ+13ls7OhC qHQnkoD0ku0RtS I60Fz//no0lQB4pJ05JD2DcKhJ1Lq99551 T08:50:56 Central ems states: "Pt c/o left arm pain. She has a history of blood clots in her legs. Her a year ago so she has been grieving."On arrival pt is tearful, reports drinking ETOH. 78067-3Czdypkalk department Triage njvzSK5204-00-61T93:51:49[facility] Triage noteTXT1.2.840.027292.1.13.104.2.7 .2.071437|[id number] for patient nzis35036-9Tyjtdkydu department NoteLNNARRATIVEFormatted C-CDA narrative [id number] M Cruz RN[address] AnqfRbhagvbwlQvxmtziyyXFXT29484176 06LDUFFTMOEDBIJNKJLEWJJM0532-08-58 T08:51:491.2.840.099863.1.72.3.15| 1.2.840.864833.1.13.104.2.7.2.7278 79_[id number] Jimenez Gray RN [facility] 2023-05-11 09:53:29 KgwAF45+rtYDkNUk/Yih 6G6AK0vHmW9rVn wboo1tp1uZU/hK3IddC5nUn2eTQIrn2019 -12-29T09:53:29 Discharge Location:Home Health location: [facility] [address] [facility] [place] [address] (P) [phone] (F) [phone] called and gave this information to [facility]. 18704-0Emrozehay encounter OthdLW8673-19-76C38:08:37Telephone encounter NoteTXT1.2.840.879688.1.13.104.2.7 .2.346963|[id number] for patient glsk17951-9RijcRGIOQYTDMHGUxorrzil d C-CDA narrative text[address] 74RFAEKVMQBCXOJBXZVAHFQH6224-55-41 T10:08:371.2.840.981695.1.72.3.15| 1.2.840.295930.1.13.104.2.7.2.7278 79_[id number] [facility] 2023-05-11 09:18:40 ASUEmPDsgYBKJ6JOGTwT sfwYGv3WOGj9Tz PB1kVWYzRDyaHFpLnbjPkY7FF2YW5e5773 -12-29T09:18:40 Faxed over wound care orders. 45220-6Ztunzfoue encounter AgifCI2167-36-25L95:21:40Telephone encounter NoteTXT1.2.840.795997.1.13.104.2.7 .2.339647|[id number] for patient jtov62519-7ZojaRRSTINEETIOFqtfbytn d C-CDA narrative nysz904369380Tcmttt N Hand MA[id number] 17WNFXNOJJXEQOYTRKVXBDZC8695-03-64 T09:21:401.2.840.627880.1.72.3.15| 1.2.840.278959.1.13.104.2.7.2.7278 79_[id number] Siobhan Brothers MA [facility] 2023-05-10 15:39:32 PXFNTjr6Jmr8vg70LJbn 5bPXCpTiJ0zuz7 xhZFEEtexitHZG73xqXCkgGX31g6e70847 -12-28T15:39:32 Juan Ramírez is a 47 year old [facility] called to request we fax over wound care orders from Dr. Ritter . Fax number [phone] call back number [phone] . Please Advise 20199-4Rxvtqgfou encounter DepiWH1554-25-38W62:44:02Telephone encounter NoteTXT1.2.840.813995.1.13.104.2.7 .2.763258|[id number] for patient sgcw70583-4BuhbETRSGECBSDZYvfokkep d C-CDA narrative [id number] Scott[address] TrvkMggrugcaaWjnumhrtjZHCM41627978 11BIENQDNKIWPLPPOFILGHRF6078-32-93 T15:44:021.2.840.094259.1.72.3.15| 1.2.840.613029.1.13.104.2.7.2.7278 79_[id number] Claribel Goodwin [facility] 2023-05-08 12:14:41 X5JvzJLEpfHtmmosKVtX eqK47YrGcMvjzL mPCOSJyVltpIEYl6eZ11AtMux5BsVA2419 -12-26T12:14:41 Rx for Tramadol sent to pharmacy [facility] [address]. Ms Ramírez will be seen in clinic on 05/10/23 for a wound evaluation.Lisha Ritter MD05/08/23 36551-6Jxjsihiol encounter FcluQP7223-20-74T95:15:45Telephone encounter NoteTXT1.2.840.765001.1.13.104.2.7 .2.259942|[id number] for patient dcxd29722-5ZhnaNAOUHHHKDSVXmugofzb d C-CDA narrative Scan•Jour[id number] 86LHVPDZDSBHEFYFNWGOVPIZ1296-10-89 T12:15:451.2.840.028417.1.72.3.15| 1.2.840.152405.1.13.104.2.7.2.7278 79_[id number] [facility] 2023-05-04 15:40:39 WiF5tVxVT7gPlRmKu4+Q uzGkbrM9SY9rlv 9a9eI2ilT7R4RxaAHPrk7JZOaRdB+72876T15:40:39 I received a return call from Mrs. Ramírez, she states she is having more pain today and not feeling well. States she has had a low grade fever of 99. Requesting alternate pain medication at this time. 83845-0Styorhtob encounter CgujSB3458-55-12M53:45:36Telephone encounter NoteTXT1.2.840.677842.1.13.104.2.7 .2.348044|[id number] for patient biqe03321-1JkfkPWPBFSENIBMAemzstid d C-CDA narrative textAppscio[id number] 07ODZMEOBOZNXHUNSLSONVZI2939-26-14 T15:45:361.2.840.018551.1.72.3.15| 1.2.840.748496.1.13.104.2.7.2.7278 79_[id number] [facility] 2023-05-04 09:33:03 69tBbKNRc7ykzGupRoJZ evwkUh+K7q/RxS sMiFAc8i6WU462QFR34eM+hqA7b/B461622022T09:33:03 Juan Ramírez is a 47 year old femalePatient calling to request pain meds. She was given Oxycodone but does not want something that strong. She stated Tylenol is not working. Patient is in pain, please contact patient. 29790-3Osxsllqkl encounter ZzmqMU3763-16-91L89:35:09Telephone encounter NoteTXT1.2.840.569846.1.13.104.2.7 .2.334007|[id number] for patient ulrs24141-0UaruPXWUVLFMMFRPqnvqtbz d C-CDA narrative [id number] [address] ZgogXomuspxlyEswaqkcebMRPT37118189 48AYZWJEIXPZRZCLJBLZQLNW7192-05-92 T09:35:091.2.840.279218.1.72.3.15| 1.2.840.461919.1.13.104.2.7.2.7278 79_[id number] Shy Dunne [facility] 2023-05-02 14:15:14 lNI1lEm5u518uH1b5tCF AjBCl0Y4fOt6eI lbsIpVWHR95o13fiihobXKZQ2lNB5W7189 -12-20T14:15:14 [facility] calling needing to speak with a nurse to see what HH agency the patient was assigned after being discharged from hospital. Please adviseP: [phone] ext [phone] order number: [id number] signed by Katerina Bah at 05/02/2023 2:17 PM DVB80017-4Odlmmgoqy encounter LsmgKQ1258-73-49E81:17:44Telephone encounter NoteTXT1.2.840.234691.1.13.104.2.7 .2.378060|[id number] for patient vrsb67180-7IdtyZDEWSQTPHAHMnvtluxc d C-CDA narrative xiik314300622Uecpe [address] 52ORYVIGRMIHRSGHONDVOKDZ9252-05-95 T14:17:441.2.840.439303.1.72.3.15| 1.2.840.970842.1.13.104.2.7.2.7278 79_[id number] Katerina Olvin [facility] 2023-04-16 11:44:18 GNMIvCCth9HFJllMC+DU 2azNV2/GN3C9jj F8tj/slSCrU9otk+sFUk4+dOs8l6TJ7178 -12-04T11:44:18 Rx sent in for norco 10/325mg q6hr x7days. Sent to [facility] in [place].Lisha Ritter MD04/16/23 76656-2Rllpmezdt encounter FoufSB2381-52-04T51:45:34Telephone encounter NoteTXT1.2.840.145415.1.13.104.2.7 .2.397030|[id number] for patient dyub09048-5OxegZFNMHZSWDNCZpggpyux d C-CDA narrative text[address] 85YUJHJZZIUFTYJHLAOHLFIR2319-80-62 T11:45:341.2.840.826567.1.72.3.15| 1.2.840.899999.1.13.104.2.7.2.7278 79_[id number] [facility] 2023-04-16 11:18:41 Tjs4GURMkptq4FA2MiXY 5bGBYD8NnWN6Xd r46TTuH1MczNrLYnKiDq6JbX+p9AMm3545T11:18:41 I called and spoke with Ms. Ramírez and scheduled a sooner follow up with Dr. Ritter for an evaluation. She will continue antibiotics given to her by urgent care provider.Ms. Ramírez is requesting a refill on pain medication as well. We discussed rotating Ibuprofen and Tylenol in order to use RX sparingly as she has just a couple left. I will forward the request to . She has agreed to this plan. 93597-2Ufnqupdtr encounter WexhQY9982-88-45I63:27:39Telephone encounter NoteTXT1.2.840.681125.1.13.104.2.7 .2.251313|[id number] for patient kcxf38958-1JuepUTFQAFTOUZUEyxouvco d C-CDA narrative wpbj534756525Typpl A Pope [address] 89EDPZUODEXDMDRRQFTDTWQF1773-75-36 T11:27:391.2.840.421380.1.72.3.15| 1.2.840.497047.1.13.104.2.7.2.7278 79_[id number] Yakelin Singh LVN [facility] 2023-04-16 10:52:29 PY7UX/xCJjdwhGjaE0k6 Wo50Dd0Obco8HD lGnqQaojf/7x6lThjnjUtUVHYFA+tE0764T10:52:29 Juan Ramírez is a 47 year old femalePt calling stating that she went to today because she had a 102 fever since , tested negative for covid and the flu , pt had surgery on , pt states that herincision is red. warm to touch and hurts , the prescribed her somecephALEXin (KEFLEX) 500 mg capsulePlease call ptThank you 57830-4Jcgsrogpl encounter YvztHH8447-30-53Z72:58:21Telephone encounter NoteTXT1.2.840.412574.1.13.104.2.7 .2.945765|[id number] for patient alxp14270-5JkerUXSIMJACUTCSoyclyvm d C-CDA narrative oowr071954315Tpop Gino[address] DajgGzubgdvlrZzridnqbwBWGC34604855 58URMMCFPCDTSYIJAIUGOKAI7592-18-27 T10:58:211.2.840.288558.1.72.3.15| 1.2.840.838744.1.13.104.2.7.2.7278 79_[id number] Desire Christian [facility] 2022-12-27 09:10:25 f4GzS10Hj5TLvcdRXMK4 1KqwvQ6fP9PmhF iQIdHy3mIzwH0Xf8zrGkO1G9aJhoMA0748 -08-16T09:10:25 Patient states she has a low grade fever, blistering around her incision site that popped and drained clear fluid. MD Fraser made aware of new complaint. No new orders, ensured patient scheduled for PET scan. Patient informed. 05365-5Yphhijlrq encounter KqbhIU3363-82-10X27:37:35Telephone encounter NoteTXT1.2.840.715369.1.13.104.2.7 .2.438240|[id number] for patient wjal28392-0UtpdBA857757509Flexpjc J WarrenPamelagodfrey [address]TX[address] 69FULNAGVRMPECGYGTIMRTXV7451-93-36 T09:37:351.2.840.521871.1.72.3.15| 1.2.840.455848.1.13.104.2.7.2.7278 79_[id number] Patricia HessenDora [facility] 2022-12-26 14:06:12 99S/r96md9Fc93ywbYNY Cxxg5l+Hs+DZTd t4b+ynRggVETtqV4+ysPq79HzEZVMX6937 -08-15T14:06:12 Patient called to inform provider that incision will not close and a blister pocket appeared. The area was red and irritated. Patient popped blister while on the line by mistake. Please assist patient on next step 56923-9Sroncrggs encounter HizdCK1298-06-52C89:07:41Telephone encounter NoteTXT1.2.840.771140.1.13.104.2.7 .2.480090|[id number] for patient fgcw83865-5TeehIV386374268Ryhmnk L [address] 01QUWIMLRFZEAPXLCBJSPTGI2919-37-42 T14:07:411.2.840.024478.1.72.3.15| 1.2.840.471459.1.13.104.2.7.2.7278 79_[id number] Payton Salinas [facility] 2022-12-22 11:52:35 CKbf87im5Nqkxu67Csrx /EEwA2ieFrJWop vTwGfAaACbj2xvEx8Lqqsgncbo9ToF0716 -08-11T11:52:35 Duplex arterial left leg is Scheduled for 01/04/23Patient contacted. States she has been in contact with nurse at [facility] clinic and nurse has notified Dr Fraser. [place] [address]-7Ztnscqqep encounter NckfIV7550-09-84V86:03:25Telephone encounter NoteTXT1.2.840.110024.1.13.104.2.7 .2.314857|[id number] for patient juno66563-9YaxsIW994317139Ydgsyx A Hall RN[address] QmwqEtzvakzdaUgehbrsdrFKFP56178295 04WJKKMKEKYOCIYTXVVKNRFQ3560-46-83 T14:03:251.2.840.223361.1.72.3.15| 1.2.840.709809.1.13.104.2.7.2.7278 79_[id number] Jeni Fu RN [facility] 2022-12-22 08:16:22 uMMTuzE4JWcXVKe63uhm /dAZw7luDsnbQK fp7geyoiLw6WRpSPz6eVZuojhu1QQ48739 -08-11T08:16:22 Juan Ramírez is a 47 year old female Patient is calling and states recent skin graft done on 12/04/22 is swollen and red x 3 days, states she believes it might be infected.Please contact at [phone] 89595-8Nauwfjkwa encounter JjvtDD4433-54-59O72:20:14Telephone encounter NoteTXT1.2.840.629811.1.13.104.2.7 .2.203159|[id number] for patient urti88820-7IizpUU184959881Nbji C [address] 57PAZIFLPBZEGDTQJTSTVCGV0820-46-54 T08:20:141.2.840.994029.1.72.3.15| 1.2.840.759401.1.13.104.2.7.2.7278 79_[id number] Sarita Vasquez [facility] 2021-10-13 11:48:00 /N39eBeZbaxkXPd/ghPN TAc4UtABwfn2uO khNN1jrerp2Wtoe1hhdJOnms9M2srg0622 -06-02T11:48:[address] [place] [address] Orthopedics Operative Note Signed Patient: JUAN RAMÍREZ Medical Record#: [id number] : 1975 Acct:[id number] Age/Sex: 46 / F ADM Date: 10/13/21 Loc: [facility] Room: Report Number: [id number] Attending Dr: Blane Fu DO Orthopedic Operative Note Date of Procedure: 10/13/21 (n) Time of Procedure: 11:52 Pre-operative Diagnosis: Re-tear right rotator cuff Post-operative diagnosis: same as preoperative diagnosis Procedure Performed: Arthroscopy of the right shoulder with generalized debridement. Rotator cuff repair with augmentation with graft Primary Surgeon: Blane Fu D.O. Instrument Sterilizer: Isis DAY Consent Obtained: obtained Time Out Performed: Yes Anesthesia: general Detailed Description of Procedure: Patient was taken to the operative suite and placed in supine position. General anesthesia was administered per the anesthetic department usual fashion. The patient was then placed in a well-padded truck headlight assembler and sat into beach chair position. All bony prominences were well padded. The right shoulder was sterilely prepped and draped in the usual fashion. The shoulder was taken through range of motion found to be free of adhesions. No instability was noted. A posterior portal established routine arthroscopy of the glenohumeral joint revealed significant degenerative tearing of the glenoid labrum inferiorly and posteriorly along with what appeared to be arthritic changes of the glenoid. An anterior portals established in the above findings were confirmed a mechanical shaver was introduced and this area was thoroughly debrided. The rotator cuff was examined from the undersurface and found to be attached to the greater tuberosity no sutures were noted. The rotator cuff appeared to be slightly attenuated but it did appear to be healed. The scope was then passed into the subacromial space and a lateral portals established. Utilizing mechanical shaver a subacromial decompression and bursectomy were performed. This afforded excellent visualization of the rotator cuff. The rotator cuff appeared to be intact throughout. A probe was introduced in aggressive probing of the rotator cuff revealed no full-thickness tear. There were some areas of attenuation however. It was decided to augment this area with of a tissue graft. The Arthrex tissue graft was selected and prepared in the usual fashion and attached to the graft delivery device. A 2nd portal established slightly inferior to the previous portal for delivery of the graft. The graft was introduced into the shoulder and the delivery diet device was opened the spreading the graft out over the rotator cuff. It was then attached proximally with 5 christy which were sequentially impacted into place. These affected excellent attachment of the proximal portion of the graft. The sutures that had previously been attached to the inferior corners of the graft were then attached to PushLock switch were then impacted into a previously PEG holes distally. This afforded excellent tension of the graft. Photographs were obtained in the graft appeared to be augmenting the areas of attenuation nicely. Sutures were cut short. All instruments removed from the shoulder. The wounds were then closed utilizing 3-0 nylon in interrupted fashion. The patient tolerated the procedure well and there were no untoward complications. The patient was then awakened transported to postanesthesia care unit in satisfactory condition. Wound Class: C - clean Estimated Blood Loss: Minimal Prosthetic devices, grafts, tissues, transplants or implants: Refer to Intraop Record Drains: None Complications: none Condition: stable Disposition: PACU Dictated By: Blane Fu DO Dictated By: Signed By: Blane Fu DO 10/13/21 1157 DD/ 1148 TD/TT: 10/13/21 1148 Elevator Mechanic Apprentice: ANTONY cc: ANTONY; [id number]* Sun Salcido NP; Blane Fu DO P.OPOPOrthopedic Operative WdwmIBQMZ35Tpyc, UcmxrlzAdxwQkoejyaUdv2690-51-33P91 :48:00P.OPOPAVAvailable for patient mgoiWDLHMMOWtACAWTEo2773-87-97E40: 02:08 MCSETXm
[2023-08-20] MEDS ORDERED: lisinopriL 20 MG TAB ONE (08:14)
--- NOTE | 2023-08-20 08:46 | RAD REPORT ---
EXAM DESCRIPTION: RAD - Os Calcis (Calcaneus) Heel - 08/20/2023 8:39 am CLINICAL HISTORY: PAIN COMPARISON: No comparisons TECHNIQUE: Right os calcis, 2 views. FINDINGS: No fracture, dislocation or periosteal reaction. Enthesopathy at the Achilles tendon attac hment. Fused os trigonum. No air or foreign body in the soft tissues. IMPRESSION: No acute osseus abnormality. Chronic findings as above.
--- NOTE | 2023-08-20 08:49 | RAD REPORT ---
EXAM DESCRIPTION: RAD - Ankle Right 3 View - 08/20/2023 8:39 am CLINICAL HISTORY: PAIN COMPARISON: No comparisons TECHNIQUE: Right ankle, 3 views. FINDINGS: No fracture, dislocation or periosteal reaction. No joint effusion seen. No joint space na rrowing. No soft tissue abnormality. Enthesopathy at the Achilles tendon attachment. Moderate degener ative changes along the midfoot. IMPRESSION: No acute osseous abnormality. Chronic findings as above.
--- NOTE | 2023-08-20 08:55 | ER ---
Nurse's Notes [facility] Name: Carmita Herman Age: 48 yrs Sex: Female : 1975 Arrival Date: 08/20/2023 Time: 07:56 Bed 5 Private MD: Diagnosis: Injury of Achilles tendon Presentation: 08/19 08:06 Chief complaint: Patient states: she tripped and fell while carrying a bag of dirt on kc6 Sunday. reports right foot/ankle pain 11/20. Coronavirus screen: At this time, the client does not indicate any symptoms associated with coronavirus-19. Ebola Screen: No symptoms or risks identified at this time. Initial Sepsis Screen: Does the patient meet any 2 criteria? No. Patient's initial sepsis screen is negative. Does the patient have a suspected source of infection? No. Patient's initial sepsis screen is negative. Risk Assessment: Do you want to hurt yourself or someone else? Patient reports no desire to harm self or others. Onset of symptoms was August 20, 2023. 08:06 Method Of Arrival: Wheelchair kc 08:06 Acuity: JUDE 4 kc6 Triage Assessment: 08:08 General: Appears in no apparent distress. comfortable, well groomed, well developed, kc6 Behavior is calm, cooperative, appropriate for age. Pain: Complains of pain in right foot Pain currently is 7 out of 10 on a pain scale. EENT: No signs and/or symptoms were reported regarding the EENT system. Neuro: Level of Consciousness is awake, alert, obeys commands, Oriented to person, place, time, situation, Appropriate for age. Cardiovascular: Capillary refill < 3 seconds. Respiratory: Airway is patent Trachea midline Respiratory effort is even, unlabored, Respiratory pattern is regular, symmetrical. GI: No signs and/or symptoms were reported involving the gastrointestinal system. : No signs and/or symptoms were reported regarding the genitourinary system. Derm: No signs and/or symptoms reported regarding the dermatologic system. Skin is intact, is healthy with good turgor, Skin is pink, warm \T\ dry. Musculoskeletal: Capillary refill < 3 seconds. Musculoskeletal: Range of motion: limited in right ankle. Historical: - Allergies: 08:08 No Known Allergies; kc6 - PMHx: 08:08 Hypertensive disorder; Peripheral vascular disease; kc6 - PSHx: 08:08 Appendectomy; section; kc6 - Immunization history:: Adult Immunizations up to date. - Infectious Disease History:: Denies. - Social history:: Smoking status: Patient/guardian denies using tobacco. Screenin:10 [facility] ED Fall Risk Assessment (Adult) History of falling in the last 3 months, 6 including since admission Yes- single mechanical fall (1 pt) Confusion or Disorientation No (0 pts) Intoxicated or Sedated No (0 pts) Impaired Gait Yes (1 pt) Mobility Assist Device Used No (0 pt) Altered Elimination No (0 pt) Score/Fall Risk Level 0 - 2 = Low Risk. Abuse screen: Denies threats or abuse. Denies injuries from another. Nutritional screening: No deficits noted. Tuberculosis screening: No symptoms or risk factors identified. Assessment: 08:09 Reassessment: please see triage. [facility] Vital Signs: 08:06 BP 163 / 121; Pulse 95; Resp 17 S; Pulse Ox 100% on R/A; Weight 99.79 kg (R); Height 5 [facility] ft. 7 in. (R); Pain 7/10; 08:17 BP 153 / 74; kc6 08:41 BP 145 / 80; Pulse 79; Resp 18; Pulse Ox 100% ; ko1 08:06 Body Mass Index 34.46 (99.79 kg, 170.18 cm) 6 08:06 Pain Scale: Adult [facility] ED Course: 07:59 Patient arrived in ED. im 08:02 Madeleine Mckenna, RN is Primary Nurse. ko1 08:02 Michelle Cerrato FNP is [facility] 08:02 Markie Milian DO is Attending Physician. 7 08:08 Triage completed. kc6 08:08 Arm band placed on. kc6 08:10 Patient has correct armband on for positive identification. Bed in low position. Call [facility] light in reach. Side rails up X 1. Client placed on continuous cardiac and pulse oximetry monitoring. NIBP monitoring applied. 08:40 Ankle Right 3 View XRAY In Process Unspecified. EDMS 08:40 XRAY Heel Os Calcis (calcaneus) In Process Unspecified. EDMS 08:54 Heriberto Campos MD is Referral Physician. [facility] 08:59 Provided Education on: na. ko1 08:59 No provider procedures requiring assistance completed. Patient did not have IV access ko1 during this emergency room visit. walking boot. Administered Medications: 08:17 Not Given (pts BP is 153/74d): ejpwswekjf98 mg PO once kc6 Medication: 08:59 VIS not applicable for this client. ko1 Outcome: 08:54 Discharge ordered by . ivana 08:59 Discharged to home ambulatory, ko1 08:59 Condition: stable 08:59 Discharge instructions given to patient, Instructed on discharge instructions, follow up and referral plans. Demonstrated understanding of instructions, follow-up care, 09:13 Patient left the ED. ko1 Signatures: Dispatcher [employer] EDMS Michelle Cerrato, VISHNU CANTEEN ATTENDANT cora7 Gina Christian RN RN tobin6 Madeleine Mckenna RN RN ko1 Starla Reid Corrections: (The following items were deleted from the chart) 08:08 08:08 PMHx: Diabetes mellitus; kc6 kc6
--- NOTE | 2023-08-20 08:55 | EDPHYS ---
Physician Documentation [facility] Name: Carmita Herman Age: 48 yrs Sex: Female : 1975 Arrival Date: 08/20/2023 Time: 07:56 Bed 5 Private MD: ED Physician Markie Milian HPI: 08/19 08:00 This 48 yrs old Female presents to ER via Wheelchair with complaints of Foot Injury, jh7 Ankle Injury. 08:00 The patient presents with an injury, pain, that is acute, tenderness. The complaints jh7 affect the right heel. Context: The problem was sustained at home, resulted from the patient tripping, the patient can partially bear weight, the patient is able to ambulate, with mild difficulty, Problem is a result from a previous injury: No. Onset: The symptoms/episode began/occurred 2 day(s) ago. Patient was carrying a 50 pound bag of dirt and stated that she had most of her weight on her right foot due to having chronic issues with her left foot. She reports that she stumbled and that her right heel took most of the weight as her foot was forced in dorsiflexion. Denies head injury or LOC. She has a history of hypertension and PVD.. Historical: - Allergies: 08:08 No Known Allergies; kc6 - PMHx: 08:08 Hypertensive disorder; Peripheral vascular disease; kc6 - PSHx: 08:08 Appendectomy; section; kc6 - Immunization history:: Adult Immunizations up to date. - Infectious Disease History:: Denies. - Social history:: Smoking status: Patient/guardian denies using tobacco. ROS: 08:00 Constitutional: Negative for fever, chills, and weight loss, Neck: Negative for injury, jh7 pain, and swelling, Cardiovascular: Negative for chest pain, palpitations, and edema, Respiratory: Negative for shortness of breath, cough, wheezing, and pleuritic chest pain, Abdomen/GI: Negative for abdominal pain, nausea, vomiting, diarrhea, and constipation, Skin: Negative for injury, rash, and discoloration, Neuro: Negative for headache, weakness, numbness, tingling, and seizure, 08:00 MS/extremity: Positive for injury or acute deformity, pain, tenderness, of the right heel, 08:00 All other systems are negative, Exam: 08:00 Constitutional: This is a well developed, well nourished patient who is awake, alert, jh7 and in no acute distress. Head/Face: Normocephalic, atraumatic. Neck: Trachea midline, no thyromegaly or masses palpated, and no cervical lymphadenopathy. Supple, full range of motion without nuchal rigidity, or vertebral point tenderness. No Meningismus. Cardiovascular: Regular rate and rhythm with a normal S1 and S2. No gallops, murmurs, or rubs. Normal PMI, no JVD. No pulse deficits. Respiratory: Lungs have equal breath sounds bilaterally, clear to auscultation and percussion. No rales, rhonchi or wheezes noted. No increased work of breathing, no retractions or nasal flaring. Abdomen/GI: Soft, non-tender, with normal bowel sounds. No distension or tympany. No guarding or rebound. No evidence of tenderness throughout. Back: No spinal tenderness. No costovertebral tenderness. Full range of motion. Skin: Warm, dry with normal turgor. Normal color with no rashes, no lesions, and no evidence of cellulitis. Neuro: Awake and alert, GCS 15, oriented to person, place, time, and situation. Sensory grossly intact. Antalgic gait. 08:00 Musculoskeletal/extremity: Extremities: noted in the right heel: pain, tenderness, ROM: limited active range of motion due to pain, in the right heel and right ankle, Circulation is intact in all extremities. Perfusion: the extremity is normally perfused throughout, pink, warm, with brisk capillary refill, Sensation intact. Weight bearing: able to fully bear weight, painful, Only slight movement of the foot during Mirza test. Suspect partial tear of Achilles tendon.. Vital Signs: 08:06 BP 163 / 121; Pulse 95; Resp 17 S; Pulse Ox 100% on R/A; Weight 99.79 kg (R); Height 5 kc6 ft. 7 in. (R); Pain 7/10; 08:17 BP 153 / 74; kc6 08:41 BP 145 / 80; Pulse 79; Resp 18; Pulse Ox 100% ; ko1 08:06 Body Mass Index 34.46 (99.79 kg, 170.18 cm) [facility] 08:06 Pain Scale: Adult [facility] MDM: 08:02 Patient medically screened. [facility] 08:58 Differential diagnosis: closed fracture, contusion, tendonitis, Achilles tendon jh7 rupture, Achilles tendon tear. Data reviewed: vital signs, nurses notes, radiologic studies, plain films. Independent interpretation of the following test(s) in the Emergency Department X-Ray: My interpretation is No acute fractures. Care significantly affected by the following chronic conditions: Hypertension. Counseling: I had a detailed discussion with the patient and/or guardian regarding the historical points, exam findings, and any diagnostic results supporting the discharge/admit diagnosis, the need for outpatient follow up, a orthopedic surgeon, to return to the emergency department if symptoms worsen or persist or if there are any questions or concerns that arise at home. ED course: Explained to the patient that the gold standard for a partial Achilles tendon tear is to apply a posterior splint and plantarflexion and placed the patient on crutches. The patient declined the splint and stated that she would likely fall on crutches. Agreed to a walking boot. Ortho follow-up advised.. 08/19 08:09 Order name: Ankle Right 3 View XRAY; Complete Time: 08:49 [facility] 08/19 08:09 Order name: XRAY Heel Os Calcis (calcaneus); Complete Time: 08:49 [facility] 08/19 08:55 Order name: Walking boot [facility] Administered Medications: 08:17 Not Given (pts BP is 153/74d): [id number] mg PO once kc6 Disposition: 15:30 I was immediately available on-site in the Emergency Department for consultation in the oh3 care of the patient. Disposition Summary: 08/20/23 08:54 Discharge Ordered Notes: Location: Home [facility] Problem: new [facility] Symptoms: are unchanged [facility] Condition: Stable [facility] Diagnosis - Injury of Achilles tendon [facility] Followup: [facility] - With: Heriberto Campos MD - When: 2 - 3 days - Reason: Recheck today's complaints Discharge Instructions: - Discharge Summary Sheet 7 - Achilles Tendinitis 7 - Walking Boot, Adult [facility] - Achilles Tendon Tear [facility] Forms: - Medication Reconciliation Form [facility] - Thank You Letter [facility] - Patient Portal Instructions [facility] - Leadership Thank You Letter [facility] Signatures: Dispatcher [employer] EDMarkie Banda DO DO ms3 Michelle Cerrato FNP FNP 7 Gina Christian, RN RN kc6 Corrections: (The following items were deleted from the chart) 08:08 08:08 PMHx: Diabetes mellitus; kc6 kc6
[2023-08-20 13:42] VITALS: BP 145/80; O2SAT 100
== END 2023-08-20 09:13 | disposition home or self-care (01) ==
LOC: ER 07:56
DX: S86.001A Unspecified injury of right Achilles tendon, initial encounter (principal)
CPT/HCPCS: 73650; 99283